=== PATIENT | male | born 1980 | race Caucasian/White ===

== ENCOUNTER 2017-09-19 06:46 | Inpatient (IN) | payer MEDICAID, SELFPAY ==
[2017-09-19] VITALS (9 sets, daily range): BP systolic 106–145; BP diastolic 75–94; PULSE 53–105; RESP 16–20; TEMP 36.6–36.9; O2SAT 94–100; BMI 18.8; BMI 17.6; BMI 17.7
--- NOTE | 2017-09-19 07:10 | EKG12_ITS ---
Test Reason : CP Blood Pressure : / mmHG Vent. Rate : 091 BPM Atrial Rate : 091 BPM P-R Int : 118 ms QRS Dur : 092 ms QT Int : 366 ms P-R-T Axes : 075 077 072 degrees QTc Int : 450 ms Normal sinus rhythm Normal ECG Confirmed by ELMA MYERS ([id number]), staff editor DERICK CHOWDHURY ([id number]) on 09/21/2017 2:34:56 PM Referred By: CECILIA Confirmed By:ELMA MYERS
--- NOTE | 2017-09-19 07:10 | RAD_ITS ---
STUDY: X-RAY CHEST REASON FOR EXAM: Male, 37 years old. Chest pain on and off for a while TECHNIQUE: Single AP portable view of the chest. COMPARISON: None. FINDINGS: There are superimposed monitor leads. There is no demonstrated pneumothorax. There is hyperinflation of the lungs. There is no focal parenchymal abnormality. There is no demonstrated pleural abnormality. Normal size heart. Normal mediastinum and todd. Normal visualized pulmonary arteries. Normal visualized aortic arch and descending thoracic aorta. Normal visualized thoracic spine. Normal visualized ribs, clavicles, and shoulders. There is no demonstrated abnormality of the visualized soft tissue structures of the upper abdomen. RAD/Chest 1 View (Portable) IMPRESSION: Hyperinflation, component of COPD noted excluded. No pulmonary edema, congestive heart failure or confluent pneumonia. Electronically Signed: Maryan Rose MD at 7:42 EDT , Service support ,
--- NOTE | 2017-09-19 07:13 | ED.VISSUMM ---
- ER Visit Summary Date of Service: 09/19/17 Chief Complaint: Chest pain History of Present Illness: The patient is a 37 M with no primary care physician. He reports that he has chest pain again at 620 this morning while he was at rest. Describes as a sharp substernal pain without radiation. Is 10 out of 10 at worst and 5 out of 10 currently. It makes him feel shaky, short of breath, and diaphoretic. It is worsened by stress. It is unchanged by exertion. It is relieved by nothing. He denies any associated nausea or vomiting. He does report that it makes him lightheaded. On review of systems patient reports she has had a cough productive yellow sputum for approximate the past 2 months. He does occasionally cough up blood streaked sputum. He has abdominal pain that began this morning and has had one episode of diarrhea today. No blood in his stools. He states the abdominal pain is an aching that is 2 out of 10 in severity. He also complains of dysuria that began today. Physical Examination: Vitals: Stable. Afebrile. General: Well-nourished and well-developed. Head: Normocephalic atraumatic. Neck: Supple, no lymphadenopathy. No JVD. Nontender. Cardiovascular: Regular rate and rhythm. No murmurs. Respiratory: No respiratory distress. Clear to auscultation bilaterally. Moderate tenderness palpation over his sternum that does reproduce his pain. Abdominal: Soft, mild diffuse tenderness to palpation, nondistended, normal bowel sounds. No guarding, rebound, or peritoneal signs. Back: Nontender. Extremities: Nontender, no edema. Skin: Normal color, no rash. Neurologic: Alert and oriented ?3. Cranial nerves II through XII are intact. Normal strength and sensation. Psych: Depressed affect. Test Results: EKG is sinus at 91 with no acute changes. CBC is remarkable for monocytes of 11. Chem-7 is marked for CO2 of 20 and calcium of 8.4. LFTs are marked for an ALT of 130, AST 183. Lipase is normal. Troponin is negative. Chest x-ray shows chronic changes. Urinalysis is negative. Alcohol level is 52. CT flank shows no acute disease and a normal appendix. Emergency Department Course and Treatment: Patient had an IV placed. He was given Toradol and Zofran IV. He was given a GI cocktail p.o. patient had increasing tremors and tachycardia. He was given Ativan IV and Librium p.o. The patient was discussed with [facility] they have been up to see him after he received Ativan at this time he does not meet criteria for admission to [facility]. However, he disclosed to them that he drinks a 30 pack of beer every 3-4 days. Clinically he is in alcohol withdrawal. Treatment Plan: The patient was discussed with Dr. Jeffery. He will be admitted to the hospital for stabilization. Disposition: Admitted in improved condition. Impression: 1. Atypical chest pain. 2. Abdominal pain, uncertain cause. 3. Alcohol withdrawal. This note was generated with [employer] dictation software. It may contain incorrect words, spelling, and punctuation that were not noted in review of the chart prior to signing ED Disposition - Plan for ED Patient: Chief Complaint: Chest Pain Instructions: ED Chest Pain Atypical Unkn Cause Prescriptions: Famotidine [Pepcid] 20 mg PO BID #28 tablet Referrals: Adrianna James [NON-STAFF] - 3-5 Days if not improving
[2017-09-19] MEDS: Ondansetron 4 MG/2 ML Vial IV ×2 (07:19→09:19)
[2017-09-19] MEDS: Ketorolac 30 MG/ML Syringe IV (07:19)
[2017-09-19] MEDS: 0.9% Normal Saline 1,000 ML 1000 ML IV (07:19)
[2017-09-19 07:27] LABS: Absolute Lymphocyte Count 1.64 X10^3/ul (0.83-4.51); Absolute Neutrophil Count 2.3 X10^3/uL (2.0-7.7); Basophil# 0.04 X10^3/uL; Basophil% 0.8 % (0-1); Eosinophil# 0.22 X10^3/uL; Eosinophils% 4.7 % (0-5); Hematocrit 43.7 % (40-54); Hemoglobin 14.4 g/dl (13.0-16.5); Lymphocyte # 1.64 X10^3/ul (4.0); Lymphocyte % 34.7 % (19-41); Mean Corpuscular Hgb 30.8 pg (27.0-32.0); Mean Corpuscular Volume 93.6 fL (80-94); Mean Platelet Vol. 9.2 fl (6.2-12.0); Monocyte# 0.54 X10^3/uL; Monocyte% 11.4 % (0-10); Neutrophil # 2.28 X10^3/uL (2.7-7.7); Neutrophil % 48.4 % (47-70); POSITIVE COUNT NO; POSITIVE DIFFERENTIAL NO; POSITIVE MORPHOLOGY NO; Platelet Count 199 K/mm3 (150-450); RBC Distribution Width CV 12.9 % (11.6-14.6); RBC Distribution Width SD 43.7 fl (35.1-43.9); Red Blood Count 4.67 M/mm3 (4.6-6.2); White Blood Count 4.7 K/mm3 (4.4-11.0)
[2017-09-19 07:33] LABS: AST(SGOT) 183 U/L (15-37); Alanine Aminotransfer ALT/SGPT 130 U/L (16-61); Albumin, Serum 3.5 g/dL (3.2-5.0); Alkaline Phosphatase 106 U/L (45-117); Anion Gap 14 (5-15); BUN 9 mg/dL (7-18); BUN/Creat Ratio 12.6 RATIO (10-20); Bilirubin, Direct 0.25 mg/dL (0.00-0.30); Calcium,Total 8.4 mg/dL (8.5-10.1); Chloride 106 mmol/L (98-107); Creatinine, Serum 0.72 mg/dL (0.70-1.30); EST Glomerular Filtration Rate 132 mL/min (>60); Est Glom Filt Rate - Afr Amer 159 mL/min (>60); Estimated Creatinine Clearance 123.18 ml/min; Globulin 4.3 g/dL (2.2-4.2); Glucose 78 mg/dL (74-106); Lipase 274 U/L (73-393); Potassium 3.7 mmol/L (3.5-5.1); Protein, Total 7.8 g/dL (6.4-8.2); Sodium Level 140 mmol/L (136-145)
[2017-09-19 08:24] LABS: Color, Urine Yellow (Yellow); Glucose, Dipstick Normal (Normal); Ketone-Dipstick 5 mg/dl (Negative); Leukocyte Esterase-Dipstick 25 /ul (Negative); Nitrite-Dipstick Negative (Negative); Occult Blood-Urine Negative /ul (Negative); Protein-Dipstick Negative (Negative); Specific Gravity, Urine 1.015 (1.002-1.030); Urine Bilirubin Dipstick Negative (Negative); Urine Clarity Sl. Cloudy (Clear); Urine Urobilinogen 1 mg/dl (Normal)
[2017-09-19 08:47] LABS: Red Blood Cells-Urine 0-5 SEEN /hpf (0-5); Squamous Epithelial Cells - UA 0-5 SEEN /hpf (0-5); White Blood Cells 0-5 SEEN /hpf (0-5)
[2017-09-19 08:48] LABS: Bacteria RARE /hpf (None Seen); Mucous, Urine RARE /hpf (<or=2+)
--- NOTE | 2017-09-19 09:07 | CT_ITS ---
STUDY: CT ABDOMEN AND PELVIS WITHOUT CONTRAST REASON FOR EXAM: Male, 37 years old. Abdominal pain, nausea and vomiting RADIATION DOSAGE (If Supplied By Facility): CTDIvol = ( 6.04 ) mGy, DLP = ( 271.80 ) mGycm TECHNIQUE: Transaxial images were obtained from the dome of the diaphragm to the symphysis pubis without oral contrast, and without intravenous contrast. Sagittal and coronal images were reconstructed. Individualized dose optimization techniques were used for this CT. COMPARISON: None. FINDINGS: The visualized lung bases are unremarkable. The visualized portions of the heart are within normal limits. Evaluation of the abdominal viscera is limited in the absence of intravenous contrast. Normal liver. Normal gallbladder and extrahepatic biliary system. Normal spleen. Normal pancreas. Normal bilateral adrenal glands. Normal right kidney. Normal left kidney. Normal visualized stomach. Normal small intestine. There is a moderate amount of stool throughout the colon. The appendix is visualized and appears normal. Normal abdominal aorta. Normal inferior vena cava. Normal retroperitoneum. Normal urinary bladder. Normal abdominal wall. Normal osseous structures. CT/Abdomen/Pelvis without Cont IMPRESSION: Moderate stool. No bowel obstruction or acute renal pathology. The appendix is normal. Electronically Signed: Zachary Nelson DO at 10:09 EDT Tel , Service support ,
[2017-09-19] MEDS: LORazepam 2 MG/ML Syringe 1 MG IV ×2 (09:19→10:34)
[2017-09-19] MEDS: Morphine 4 MG/ML Syringe IV (09:19)
--- NOTE | 2017-09-19 11:02 | ED.RN ---
[facility] talking with pt. pt admits to drinking a 30 pack or more every 3 days. drank last night stopping at 0530
[2017-09-19] MEDS: chlordiazePOXIDE 25 MG Capsule 50 MG PO (11:03)
--- NOTE | 2017-09-19 12:35 | NURSING ---
PT STATES HE DOES NOT TAKE ANY MEDICATIONS @ HOME
--- NOTE | 2017-09-19 12:59 | PCM.HP.STD ---
Problem List (1) Alcohol withdrawal Status: Acute (2) Alcohol abuse Status: Chronic History of Present Illness Date of Admission: 09/19/17 Chief Complaint: Multiple complaints. The patient is a 37 year old M with past medical history as mentioned above presented to the medicine because of chest pain as reported by ER physician and when I saw the patient, he mentioned that he came in because of suprapubic pain. At this time, the patient is sleepy and lethargic but arousable and I am not sure if he is able to provide good history. He has different complaints. He mentioned that this pain is in the suprapubic region, started this morning, 7 out of 10 in severity, not radiating, sharp pain, associated with difficulty urinating and without aggravating or relieving factors. Reportedly, patient complained of chest pain to the ER physician which also started this morning. He had one episode of diarrhea this morning. According to his mother, his girlfriend mentioned that he has been shaking uncontrollably since last night, very anxious and irritable and she brought him to the emergency room today. In the emergency room, he was slightly tachycardic, other vital signs were stable. His routine blood work was unremarkable. Liver transaminases were slightly elevated. Lipase was normal. Troponin was negative. EKG revealed normal sinus rhythm without evidence of acute ischemic changes. His blood alcohol level was 52. Urinalysis revealed cloudy urine, negative for nitrite, negative for leukocyte esterase, there was only 0-5? disease and rare bacteria. CT scan abdomen and pelvis without contrast showed no evidence of acute intra-abdominal pathology. He is being admitted for acute alcohol withdrawal and elevated liver transaminases likely because of mild alcoholic hepatitis as well as abdominal pain unclear etiology.. Past Medical History Past Medical History (Chronic Problems): Chronic Problems Alcohol abuse (Chronic) Allergies No Known Allergies Allergy (Verified 09/19/17 06:50) Surgical History: - - Surgery for nasal bone fracture. Psychiatric History: No pertinent psych hx Lives: Spouse/ Significant Other Smoking Status: Never smoker Alcohol: Heavy Drugs: None - *Family History Maternal History Items: No pertinent history Paternal History Items: No pertinent history Review of Systems Constitutional: Denies: Anorexia, Chills, Fever, Weakness Eyes: Denies: Blurred vision, Double vision, Drainage, Redness HEENT: Denies: Difficulty Hearing, Ear Pain, Eye Pain, Nasal Congestion, Sore Throat Cardiovascular: Reports: Chest Pain. Denies: Edema, Heaviness, Light Headedness, Orthopnea, Palpitations, Paroxysmal Noc. Dyspnea, Syncope Respiratory: Denies: Cough, Hemoptysis, Pleuritic Pain, Shortness of Breath, Sputum production, Wheezing Gastrointestinal: Reports: Abdominal Pain, Diarrhea, Nausea, Vomiting. Denies: Constipation Genitourinary: Reports: Dysuria. Denies: Frequency, Hematuria Musculoskeletal: Denies: Arm Pain, Back Pain, Foot Pain Skin: Denies: Dryness, Rash Neurological: Denies: Balance problems, Double vision, Slurred speech, Confusion, Headaches, Incoordination, Numbness Psychiatric: Denies: Anxiety, Depression Endocrine: Denies: Change in Body Habitus, Polydipsia VTE Information - Inpt Only VTE Present on Admission: No VTE Mechan Device Prophylaxis: None VTE Pharm Prophylaxis ordered?: No Patient Problems: Active and Suspected Problems Alcohol withdrawal (Acute) - Physical Exam General: Cooperative, - - Sleepy, lethargic but arousable. HEENT: Atraumatic, PERRLA, EOMI Oral: Moist Mucosa, No Gingival or Mucosal Lesions/ Ulcerations Neck: Supple, No JVD, Negative Carotid Bruits, Trachea Midline, Thyroid Normal Size and Texture Lungs: Clear to auscultation, Normal air movement, No rhonchi, No wheeze, No rales Cardiovascular: Regular rate, Regular Rhythm, Normal S1, Normal S2, PMI Normal Abdomen: Bowel Sounds Present, Soft, Non-Distended, No Hepato-splenomegaly, Obese, Tender Extremities: No clubbing, No cyanosis, No edema Skin: No rashes, No breakdown Lymphatic: No Cervical, Supraclavicular, or Inguinal Adenopathy Neurological: Cranial nerves II-XII grossly intact, Motor Exam 5/5 strength throughout Psych/Mental Status: Flat Affect, Alert and oriented to time, place, person, mood and affect Vital Signs Temp Pulse Resp BP Pulse Ox 98.5 F 60 18 114/76 99 09/19/17 12:22 09/19/17 12:22 09/19/17 12:22 09/19/17 12:22 09/19/17 12:22 Oxygen Delivery Method Room Air Weight: 130 lb 5 oz Body Mass Index (BMI) 17.6 Laboratory Tests 09/19/17 09/19/1709/19/18 Range/Units 08:15 06:58 06:58 WBC (4.4-11.0) K/mm3 RBC (4.6-6.2) M/mm3 Hgb (13.0-16.5) g/dl Hct (40-54) % MCV (80-94) fL MCH (27.0-32.0) pg MCHC (32-36) g/gl RDW (11.6-14.6) % RDW Differential (35.1-43.9) fl Plt Count (150-450) K/mm3 MPV (6.2-12.0) fl Immature Gran % (Auto) (0.0-0.9) % Neut % (Auto) (47-70) % Lymph % (Auto) (19-41) % [place] % (Auto) (0-10) % Eos % (Auto) (0-5) % Baso % (Auto) (0-1) % Absolute Neuts (auto) (2.0-7.7) X10^3/uL Absolute Lymphs (auto) (0.83-4.51) X10^3/ul Total Counted Sodium 140 (136-145) mmol/L Potassium 3.7 (3.5-5.1) mmol/L Chloride 106 (98-107) mmol/L Carbon Dioxide 20.0 L (21.0-32.0) mmol/L Anion Gap 14 (5-15) BUN 9 (7-18) mg/dL Creatinine 0.72 (0.70-1.30) mg/dL Estim Creat Clear Calc 123.18 ml/min Est GFR (MDRD) Af Amer 159 (>60) mL/min Est GFR (MDRD) Non-Af 132 (>60) mL/min BUN/Creatinine Ratio 12.6 (10-20) RATIO Glucose 78 (74-106) mg/dL Calcium 8.4 L (8.5-10.1) mg/dL Total Bilirubin 0.70 (0.20-1.00) mg/dL Direct Bilirubin 0.25 (0.00-0.30) mg/dL AST 183 H (15-37) U/L ALT 130 H (16-61) U/L Alkaline Phosphatase 106 (45-117) U/L Troponin I < 0.02 (<0.06) ng/mL Total Protein 7.8 (6.4-8.2) g/dL Albumin 3.5 (3.2-5.0) g/dL Globulin 4.3 H (2.2-4.2) g/dL Lipase 274 (73-393) U/L Urine Color Yellow (Yellow) Urine Clarity Sl. Cloudy (Clear) Urine pH 7.0 (5.0 - 8.0) Ur Specific [place] 1.015 (1.002-1.030) Urine Protein Negative (Negative) mg/dl Urine Glucose (UA) Normal (Normal) mg/dl Urine Ketones 5 H (Negative) mg/dl Urine Occult Blood Negative (Negative) /ul Urine Nitrite Negative (Negative) Urine Bilirubin Negative (Negative) mg/dL Urine Urobilinogen 1 H (Normal) mg/dl Ur Leukocyte Esterase 25 H (Negative) /ul Urine RBC 0-5 SEEN (0-5) /hpf Urine WBC 0-5 SEEN (0-5) /hpf Ur Squamous Epith Cells 0-5 SEEN (0-5) /hpf Urine Bacteria RARE (None Seen) /hpf Urine Mucus RARE (<or=2+) /hpf Ethyl Alcohol 52.0 mg/dL 09/19/ Range/Units 06:58 WBC 4.7 (4.4-11.0) K/mm3 RBC 4.67 (4.6-6.2) M/mm3 Hgb 14.4 (13.0-16.5) g/dl Hct 43.7 (40-54) % MCV 93.6 (80-94) fL MCH 30.8 (27.0-32.0) pg MCHC 33.0 (32-36) g/gl RDW 12.9 (11.6-14.6) % RDW Differential 43.7 (35.1-43.9) fl Plt Count 199 (150-450) K/mm3 MPV 9.2 (6.2-12.0) fl Immature Gran % (Auto) 0.000 (0.0-0.9) % Neut % (Auto) 48.4 (47-70) % Lymph % (Auto) 34.7 (19-41) % [place] % (Auto) 11.4 H (0-10) % Eos % (Auto) 4.7 (0-5) % Baso % (Auto) 0.8 (0-1) % Absolute Neuts (auto) 2.3 (2.0-7.7) X10^3/uL Absolute Lymphs (auto) 1.64 (0.83-4.51) X10^3/ul Total Counted Not Reportable Sodium (136-145) mmol/L Potassium (3.5-5.1) mmol/L Chloride (98-107) mmol/L Carbon Dioxide (21.0-32.0) mmol/L Anion Gap (5-15) BUN (7-18) mg/dL Creatinine (0.70-1.30) mg/dL Estim Creat Clear Calc ml/min Est GFR (MDRD) Af Amer (>60) mL/min Est GFR (MDRD) Non-Af (>60) mL/min BUN/Creatinine Ratio (10-20) RATIO Glucose (74-106) mg/dL Calcium (8.5-10.1) mg/dL Total Bilirubin (0.20-1.00) mg/dL Direct Bilirubin (0.00-0.30) mg/dL AST (15-37) U/L ALT (16-61) U/L Alkaline Phosphatase (45-117) U/L Troponin I (<0.06) ng/mL Total Protein (6.4-8.2) g/dL Albumin (3.2-5.0) g/dL Globulin (2.2-4.2) g/dL Lipase (73-393) U/L Urine Color (Yellow) Urine Clarity (Clear) Urine pH (5.0 - 8.0) Ur Specific [place] (1.002-1.030) Urine Protein (Negative) mg/dl Urine Glucose (UA) (Normal) mg/dl Urine Ketones (Negative) mg/dl Urine Occult Blood (Negative) /ul Urine Nitrite (Negative) Urine Bilirubin (Negative) mg/dL Urine Urobilinogen (Normal) mg/dl Ur Leukocyte Esterase (Negative) /ul Urine RBC (0-5) /hpf Urine WBC (0-5) /hpf Ur Squamous Epith Cells (0-5) /hpf Urine Bacteria (None Seen) /hpf Urine Mucus (<or=2+) /hpf Ethyl Alcohol mg/dL Clinical Impression(s) from Imaging Studies Chest X-Ray 09/19/17 07:10 IMPRESSION: Hyperinflation, component of COPD noted excluded. No pulmonary edema, congestive heart failure or confluent pneumonia. Electronically Signed: Maryan Rose MD at 7:42 EDT , Service support , Abdomen/Pelvis CT 09/19/17 09:07 IMPRESSION: Moderate stool. No bowel obstruction or acute renal pathology. The appendix is normal. Electronically Signed: Zachary Nelson DO at 10:09 EDT Tel , Service support , Assessment/Plan Active and Suspected Problems Alcohol withdrawal (Acute) This is a 57 years old male patient presented to the emergency room because of multiple complaints including abdominal pain, chest pain, nausea and vomiting in addition to reported symptoms of uncontrollable shakiness, and anxiety and restlessness in context of heavy drinking alcohol and he is being admitted for acute alcohol withdrawal as well as elevated LFTs. #1 acute alcohol withdrawal: Patient drinks alcohol heavily, every day. At this time, he is lethargic and sleepy because he received Ativan and IV morphine in the ER. His vital signs are stable. Heart rate stabilized, initially was tachycardic. His EKG revealed normal sinus rhythm without evidence of acute ischemic changes. [facility], [facility] protocol for alcohol withdrawal, Ativan as needed, folic acid, thiamine supplement, multivitamins, IV fluids with D5 normal saline, urine drug screen. #2 abdominal pain: It is nonspecific. Patient provided multiple complaints to different doctors including myself and the ER physician. CT scan abdomen and pelvis without contrast without evidence of acute findings. Liver transaminases are slightly elevated as below. Lipase is normal. He is tender on abdominal examination, no guarding or rigidity. Appendix is normal on CT scan. Plan for IV morphine as needed, IV fluids, IV antiemetics and IV Pepcid twice daily. #3 atypical chest pain: Again, patient has multiple complaints and I am not sure how much he is reliable. His EKG revealed normal sinus rhythm without evidence of acute ischemic changes. Troponin is negative ?1. He is at low risk for CAD, no significant risk factors. At this time, no indication for further cardiac workup. #4 elevated LFT: This is likely because of alcoholic hepatitis. Total bilirubin, direct bilirubin and alkaline phosphatase are normal. Plan to repeat LFTs tomorrow morning. #5 alcohol abuse: Patient has been drinking heavily for many years. Plan as above. #6 DVT prophylaxis: Low risk patient, no prophylaxis indicated. This note was generated with [employer] dictation software. It may contain incorrect words, spelling, and punctuation that were not noted in checking the note before signing. Code Visit Inpatient E&M: 58331 Init Hosp L3
[2017-09-19] MEDS: Dextrose 5%/0.9% NaCl 1,000 ML 75 ML IV (13:04)
--- NOTE | 2017-09-19 13:06 | HP.PCM_ITS ---
Problem List (1) Alcohol withdrawal Status: Acute (2) Alcohol abuse Status: Chronic History of Present Illness Date of Admission: 09/19/17 Chief Complaint: Multiple complaints. The patient is a 37 year old M with past medical history as mentioned above presented to the medicine because of chest pain as reported by ER physician and when I saw the patient, he mentioned that he came in because of suprapubic pain. At this time, the patient is sleepy and lethargic but arousable and I am not sure if he is able to provide good history. He has different complaints. He mentioned that this pain is in the suprapubic region, started this morning, 7 out of 10 in severity, not radiating, sharp pain, associated with difficulty urinating and without aggravating or relieving factors. Reportedly, patient complained of chest pain to the ER physician which also started this morning. He had one episode of diarrhea this morning. According to his mother, his girlfriend mentioned that he has been shaking uncontrollably since last night, very anxious and irritable and she brought him to the emergency room today. In the emergency room, he was slightly tachycardic, other vital signs were stable. His routine blood work was unremarkable. Liver transaminases were slightly elevated. Lipase was normal. Troponin was negative. EKG revealed normal sinus rhythm without evidence of acute ischemic changes. His blood alcohol level was 52. Urinalysis revealed cloudy urine, negative for nitrite, negative for leukocyte esterase, there was only 0-5? disease and rare bacteria. CT scan abdomen and pelvis without contrast showed no evidence of acute intra-abdominal pathology. He is being admitted for acute alcohol withdrawal and elevated liver transaminases likely because of mild alcoholic hepatitis as well as abdominal pain unclear etiology.. Past Medical History Past Medical History (Chronic Problems): Chronic Problems Alcohol abuse (Chronic) Allergies No Known Allergies Allergy (Verified 09/19/17 06:50) Surgical History: - - Surgery for nasal bone fracture. Psychiatric History: No pertinent psych hx Lives: Spouse/ Significant Other Smoking Status: Never smoker Alcohol: Heavy Drugs: None - *Family History Maternal History Items: No pertinent history Paternal History Items: No pertinent history Review of Systems Constitutional: Denies: Anorexia, Chills, Fever, Weakness Eyes: Denies: Blurred vision, Double vision, Drainage, Redness HEENT: Denies: Difficulty Hearing, Ear Pain, Eye Pain, Nasal Congestion, Sore Throat Cardiovascular: Reports: Chest Pain. Denies: Edema, Heaviness, Light Headedness , Orthopnea, Palpitations, Paroxysmal Noc. Dyspnea, Syncope Respiratory: Denies: Cough, Hemoptysis, Pleuritic Pain, Shortness of Breath, Sputum production, Wheezing Gastrointestinal: Reports: Abdominal Pain, Diarrhea, Nausea, Vomiting. Denies: Constipation Genitourinary: Reports: Dysuria. Denies: Frequency, Hematuria Musculoskeletal: Denies: Arm Pain, Back Pain, Foot Pain Skin: Denies: Dryness, Rash Neurological: Denies: Balance problems, Double vision, Slurred speech, Confusion , Headaches, Incoordination, Numbness Psychiatric: Denies: Anxiety, Depression Endocrine: Denies: Change in Body Habitus, Polydipsia VTE Information - Inpt Only VTE Present on Admission: No VTE Mechan Device Prophylaxis: None VTE Pharm Prophylaxis ordered?: No Patient Problems: Active and Suspected Problems Alcohol withdrawal (Acute) - Physical Exam General: Cooperative, - - Sleepy, lethargic but arousable. HEENT: Atraumatic, PERRLA, EOMI Oral: Moist Mucosa, No Gingival or Mucosal Lesions/ Ulcerations Neck: Supple, No JVD, Negative Carotid Bruits, Trachea Midline, Thyroid Normal Size and Texture Lungs: Clear to auscultation, Normal air movement, No rhonchi, No wheeze, No rales Cardiovascular: Regular rate, Regular Rhythm, Normal S1, Normal S2, PMI Normal Abdomen: Bowel Sounds Present, Soft, Non-Distended, No Hepato-splenomegaly, Obese, Tender Extremities: No clubbing, No cyanosis, No edema Skin: No rashes, No breakdown Lymphatic: No Cervical, Supraclavicular, or Inguinal Adenopathy Neurological: Cranial nerves II-XII grossly intact, Motor Exam 5/5 strength throughout Psych/Mental Status: Flat Affect, Alert and oriented to time, place, person, mood and affect Vital Signs Temp Pulse Resp BP Pulse Ox 98.5 F 60 18 114/76 99 09/19/17 12:22 09/19/17 12:22 09/19/17 12:22 09/19/17 12:22 09/19/17 12:22 Oxygen Delivery Method Room Air Weight: 130 lb 5 oz Body Mass Index (BMI) 17.6 Laboratory Tests 3 04/09/19/17 09/19/17 Range/Units 08:15 06:58 06:58 WBC (4.4-11.0) K/mm3 RBC (4.6-6.2) M/mm3 Hgb (13.0-16.5) g/dl Hct (40-54) % MCV (80-94) fL MCH (27.0-32.0) pg MCHC (32-36) g/gl RDW (11.6-14.6) % RDW Differential (35.1-43.9) fl Plt Count (150-450) K/mm3 MPV (6.2-12.0) fl Immature Gran % (Auto) (0.0-0.9) % Neut % (Auto) (47-70) % Lymph % (Auto) (19-41) % [place] % (Auto) (0-10) % Eos % (Auto) (0-5) % Baso % (Auto) (0-1) % Absolute Neuts (auto) (2.0-7.7) X10^3/uL Absolute Lymphs (auto) (0.83-4.51) X10^3/ul Total Counted Sodium 140 (136-145) mmol/L Potassium 3.7 (3.5-5.1) mmol/L Chloride 106 (98-107) mmol/L Carbon Dioxide 20.0 L (21.0-32.0) mmol/L Anion Gap 14 (5-15) BUN 9 (7-18) mg/dL Creatinine 0.72 (0.70-1.30) mg/dL Estim Creat Clear Calc 123.18 ml/min Est GFR (MDRD) Af Amer 159 (>60) mL/min Est GFR (MDRD) Non-Af 132 (>60) mL/min BUN/Creatinine Ratio 12.6 (10-20) RATIO Glucose 78 (74-106) mg/dL Calcium 8.4 L (8.5-10.1) mg/dL Total Bilirubin 0.70 (0.20-1.00) mg/dL Direct Bilirubin 0.25 (0.00-0.30) mg/dL AST 183 H (15-37) U/L ALT 130 H (16-61) U/L Alkaline Phosphatase 106 (45-117) U/L Troponin I < 0.02 (<0.06) ng/mL Total Protein 7.8 (6.4-8.2) g/dL Albumin 3.5 (3.2-5.0) g/dL Globulin 4.3 H (2.2-4.2) g/dL Lipase 274 (73-393) U/L Urine Color Yellow (Yellow) Urine Clarity Sl. Cloudy (Clear) Urine pH 7.0 (5.0 - 8.0) Ur Specific [place] 1.015 (1.002-1.030) Urine Protein Negative (Negative) mg/dl Urine Glucose (UA) Normal (Normal) mg/dl Urine Ketones 5 H (Negative) mg/dl Urine Occult Blood Negative (Negative) /ul Urine Nitrite Negative (Negative) Urine Bilirubin Negative (Negative) mg/dL Urine Urobilinogen 1 H (Normal) mg/dl Ur Leukocyte Esterase 25 H (Negative) /ul Urine RBC 0-5 SEEN (0-5) /hpf Urine WBC 0-5 SEEN (0-5) /hpf Ur Squamous Epith Cells 0-5 SEEN (0-5) /hpf Urine Bacteria RARE (None Seen) /hpf Urine Mucus RARE (<or=2+) /hpf Ethyl Alcohol 52.0 mg/dL 3 09/19/18 Range/Units 06:58 WBC 4.7 (4.4-11.0) K/mm3 RBC 4.67 (4.6-6.2) M/mm3 Hgb 14.4 (13.0-16.5) g/dl Hct 43.7 (40-54) % MCV 93.6 (80-94) fL MCH 30.8 (27.0-32.0) pg MCHC 33.0 (32-36) g/gl RDW 12.9 (11.6-14.6) % RDW Differential 43.7 (35.1-43.9) fl Plt Count 199 (150-450) K/mm3 MPV 9.2 (6.2-12.0) fl Immature Gran % (Auto) 0.000 (0.0-0.9) % Neut % (Auto) 48.4 (47-70) % Lymph % (Auto) 34.7 (19-41) % [place] % (Auto) 11.4 H (0-10) % Eos % (Auto) 4.7 (0-5) % Baso % (Auto) 0.8 (0-1) % Absolute Neuts (auto) 2.3 (2.0-7.7) X10^3/uL Absolute Lymphs (auto) 1.64 (0.83-4.51) X10^3/ul Total Counted Not Reportable Sodium (136-145) mmol/L Potassium (3.5-5.1) mmol/L Chloride (98-107) mmol/L Carbon Dioxide (21.0-32.0) mmol/L Anion Gap (5-15) BUN (7-18) mg/dL Creatinine (0.70-1.30) mg/dL Estim Creat Clear Calc ml/min Est GFR (MDRD) Af Amer (>60) mL/min Est GFR (MDRD) Non-Af (>60) mL/min BUN/Creatinine Ratio (10-20) RATIO Glucose (74-106) mg/dL Calcium (8.5-10.1) mg/dL Total Bilirubin (0.20-1.00) mg/dL Direct Bilirubin (0.00-0.30) mg/dL AST (15-37) U/L ALT (16-61) U/L Alkaline Phosphatase (45-117) U/L Troponin I (<0.06) ng/mL Total Protein (6.4-8.2) g/dL Albumin (3.2-5.0) g/dL Globulin (2.2-4.2) g/dL Lipase (73-393) U/L Urine Color (Yellow) Urine Clarity (Clear) Urine pH (5.0 - 8.0) Ur Specific [place] (1.002-1.030) Urine Protein (Negative) mg/dl Urine Glucose (UA) (Normal) mg/dl Urine Ketones (Negative) mg/dl Urine Occult Blood (Negative) /ul Urine Nitrite (Negative) Urine Bilirubin (Negative) mg/dL Urine Urobilinogen (Normal) mg/dl Ur Leukocyte Esterase (Negative) /ul Urine RBC (0-5) /hpf Urine WBC (0-5) /hpf Ur Squamous Epith Cells (0-5) /hpf Urine Bacteria (None Seen) /hpf Urine Mucus (<or=2+) /hpf Ethyl Alcohol mg/dL Clinical Impression(s) from Imaging Studies Chest X-Ray 09/19/17 07:10 IMPRESSION: Hyperinflation, component of COPD noted excluded. No pulmonary edema, congestive heart failure or confluent pneumonia. Electronically Signed: Maryan Rose MD at 7:42 EDT , Service support , Abdomen/Pelvis CT 09/19/17 09:07 IMPRESSION: Moderate stool. No bowel obstruction or acute renal pathology. The appendix is normal. Electronically Signed: Zachary Nelson DO at 10:09 EDT Tel , Service support , Assessment/Plan Active and Suspected Problems Alcohol withdrawal (Acute) This is a 57 years old male patient presented to the emergency room because of multiple complaints including abdominal pain, chest pain, nausea and vomiting in addition to reported symptoms of uncontrollable shakiness, and anxiety and restlessness in context of heavy drinking alcohol and he is being admitted for acute alcohol withdrawal as well as elevated LFTs. #1 acute alcohol withdrawal: Patient drinks alcohol heavily, every day. At this time, he is lethargic and sleepy because he received Ativan and IV morphine in the ER. His vital signs are stable. Heart rate stabilized, initially was tachycardic. His EKG revealed normal sinus rhythm without evidence of acute ischemic changes. Plan: Admit to [facility] floor, cardiac monitoring, initiate [facility] protocol for alcohol withdrawal, Ativan as needed, folic acid, thiamine supplement, multivitamins, IV fluids with D5 normal saline , urine drug screen. #2 abdominal pain: It is nonspecific. Patient provided multiple complaints to different doctors including myself and the ER physician. CT scan abdomen and pelvis without contrast without evidence of acute findings. Liver transaminases are slightly elevated as below. Lipase is normal. He is tender on abdominal examination, no guarding or rigidity. Appendix is normal on CT scan. Plan for IV morphine as needed, IV fluids, IV antiemetics and IV Pepcid twice daily. #3 atypical chest pain: Again, patient has multiple complaints and I am not sure how much he is reliable. His EKG revealed normal sinus rhythm without evidence of acute ischemic changes. Troponin is negative ?1. He is at low risk for CAD, no significant risk factors. At this time, no indication for further cardiac workup. #4 elevated LFT: This is likely because of alcoholic hepatitis. Total bilirubin , direct bilirubin and alkaline phosphatase are normal. Plan to repeat LFTs tomorrow morning. #5 alcohol abuse: Patient has been drinking heavily for many years. Plan as above. #6 DVT prophylaxis: Low risk patient, no prophylaxis indicated. This note was generated with [employer] software. It may contain incorrect words, spelling, and punctuation that were not noted in checking the note before signing. Code Visit Inpatient E&M: 15385 Init Hosp L3
[2017-09-19 13:37] LABS: Amphetamine Urine VISTA NEGATIVE (<1000 ng/mL); Barbiturate Urine VISTA NEGATIVE (< 200 ng/mL); Benzodiazepine Urine VISTA NEGATIVE (< 200 ng/mL); Cocaine Urine VISTA NEGATIVE (< 300 ng/mL); Ecstacy Urine VISTA NEGATIVE (< 500 ng/mL); Methadone Urine VISTA NEGATIVE (< 300 ng/mL); PCP Urine VISTA NEGATIVE (< 25 ng/mL); THC Urine VISTA NEGATIVE (< 50 ng/mL); Vista UDS pH Range 5
[2017-09-19] MEDS: 0.9% NaCl Peripheral Flush Adult/Peds IV (14:46)
[2017-09-19] MEDS: Morphine 2 MG/ML Syringe 1 MG IV (14:46)
[2017-09-19] MEDS: Thiamine Hydrochloride 100 MG Tablet PO (16:30)
[2017-09-20] VITALS (10 sets, daily range): BP systolic 111–128; BP diastolic 68–82; PULSE 50–86; RESP 18; TEMP 36.4–37.1; O2SAT 98–99
[2017-09-20] MEDS: Dextrose 5%/0.9% NaCl 1,000 ML 75 ML IV ×2 (02:50→17:00)
[2017-09-20 06:51] LABS: AST(SGOT) 64 U/L (15-37); Alanine Aminotransfer ALT/SGPT 83 U/L (16-61); Albumin, Serum 2.8 g/dL (3.2-5.0); Alkaline Phosphatase 82 U/L (45-117); Bilirubin, Direct 0.23 mg/dL (0.00-0.30); Globulin 3.5 g/dL (2.2-4.2); Protein, Total 6.3 g/dL (6.4-8.2)
--- NOTE | 2017-09-20 08:01 | PCM.PROGNOTE ---
Patient Problems: Active and Suspected Problems Alcohol withdrawal (Acute) Subjective: Chief complaint: Follow-up after admission for acute alcohol withdrawal. Patient seen and examined. No acute events overnight. This morning, he is more alert and awake. He mentioned that his abdominal pain is improving compared to yesterday. Denied nausea vomiting. Chest pain also improved, almost gone. All over, he is feeling better. His vital signs are stable. - Physical Exam General: Alert, Oriented x3, Cooperative, No apparent distress HEENT: Atraumatic, PERRLA, EOMI Oral: Moist Mucosa, No Gingival or Mucosal Lesions/ Ulcerations Neck: Supple, No JVD, Negative Carotid Bruits, Trachea Midline, Thyroid Normal Size and Texture Lungs: Clear to auscultation, No rhonchi, No wheeze, No rales, Diminished Cardiovascular: Regular rate, Regular Rhythm, Normal S1, Normal S2, No murmurs, PMI Normal Abdomen: Bowel Sounds Present, Soft, Non-Distended, No Hepato-splenomegaly, Tender - Minimal tenderness. No guarding or rigidity. Extremities: No clubbing, No cyanosis, No edema Skin: No rashes, No breakdown Lymphatic: No Cervical, Supraclavicular, or Inguinal Adenopathy Neurological: Cranial nerves II-XII grossly intact, Motor Exam 5/5 strength throughout Psych/Mental Status: Normal Affect, Appropriate, Alert and oriented to time, place, person, mood and affect Vital Signs Temp Pulse Resp BP Pulse Ox 97.6 F L 50 L 18 113/70 99 09/20/17 05:45 09/20/17 05:45 09/20/17 05:45 09/20/17 05:45 09/20/17 05:45 Oxygen Delivery Method Room Air Weight: 130 lb 4.691 oz Body Mass Index (BMI) 17.6 Intake and Output for Last 24 Hours 09/18/17 09/19/17 09/20/17 23:59 23:59 23:59 Intake Total 815 / 815 1619 / 1619 Balance 815 / 815 1619 / 1619 Laboratory Tests Past 24 Hrs 09/19/17 09/20/17 12:50 06:04 Total Bilirubin 0.90 Direct Bilirubin 0.23 AST 64 H ALT 83 H Alkaline Phosphatase 82 Total Protein 6.3 L Albumin 2.8 L Globulin 3.5 Urine Opiates Screen POSITIVE H Urine Methadone Screen NEGATIVE Ur Barbiturates Screen NEGATIVE Ur Phencyclidine Scrn NEGATIVE Ur Amphetamines Screen NEGATIVE U Methamphetamin-MDMA NEGATIVE U Benzodiazepines Scrn NEGATIVE Urine Cocaine Screen NEGATIVE U Cannabinoids Screen NEGATIVE Ur Drug Screen Comment Medical Necessity - Tobacco Use Smoking Status: Never smoker Assessment/Plan Active and Suspected Problems Alcohol withdrawal (Acute) This is a 57 years old male patient presented to the emergency room because of multiple complaints including abdominal pain, chest pain, nausea and vomiting in addition to reported symptoms of uncontrollable shakiness, and anxiety and restlessness in context of heavy drinking alcohol and he is being admitted for acute alcohol withdrawal as well as elevated LFTs. #1 acute alcohol withdrawal: He is on CIWA protocol, IV Ativan and oral Ativan as needed according to the protocol as well as folic acid and thiamine supplement. His vital signs are stable. Today, patient is more resting, comfortable, is shaky and restless. Plan to continue same treatment. #2 abdominal pain: Unclear etiology. CT scan abdomen and pelvis without contrast showed no acute findings. Lipase is normal. Liver transaminases are trending down. Patient symptoms improved. He is on IV fluids, IV antiemetics and IV morphine. #3 atypical chest pain: Today, patient has no more chest pain. EKG reveals no acute ischemic changes. Troponin is negative ?1. This is likely musculoskeletal pain. #4 elevated LFT: This is likely because of alcoholic hepatitis. Total bilirubin, direct bilirubin and alkaline phosphatase are normal. Liver transaminases are trending down today. #5 alcohol abuse: Patient has been drinking heavily for many years. Urine drug screen was positive for opioids which is likely because of the IV morphine he received. #6 DVT prophylaxis: Low risk patient, no prophylaxis indicated. This note was generated with [employer] dictation software. It may contain incorrect words, spelling, and punctuation that were not noted in checking the note before signing. Code Visit Inpatient E&M: 97244 Subs Hosp L2
[2017-09-20] MEDS: Multivitamins,Ther W-Minerals Tablet 1 TABLET PO (08:17)
[2017-09-20] MEDS: Folic Acid 1 MG Tablet PO (08:17)
[2017-09-20] MEDS: Thiamine Hydrochloride 100 MG Tablet PO ×2 (08:17→18:34)
[2017-09-20] MEDS: Mag Hydrox/Al Hydrox/Simeth 30 ML UDC 15 ML PO (08:34)
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
--- NOTE | 2017-09-20 13:35 | CHAPLAIN ---
Type of Pastoral Visit _x__ Initial Visit ___ Follow-up Visit ___ On-call Visit ___ General Patient Visit ___ Spiritual Assessment ___ Family Conference ___ Bereavement ___ Rapid Response ___ Code Blue ___ Other (describe below) Pastoral Care Referral From _x__ Patient ___ Family ___ Nurse ___ Physician ___ Ceramic Tile Installation Helper ___ Bond Analyst ___ Other (describe below) Sacrament/Intervention _x__ Active listening ___ Anointing ___ Scientologist ___ Bereavement ___ Communion ___ Vero exploration ___ _x__ Life review _x__ Prayer ___ Reconciliation ___ Sacrament of Sick _x__ Supportive presence ___ Wedding ___ Other (describe below) Pastoral Comments patient acknowledges that stress is very high and he could not cope with it recently; pt admits to drinking alcohol to help his stress; talked about his options and how to make choices that are better for him; pt says he is not church but would accept prayer for support; gave patient time to talk and reveal his concerns;
[2017-09-21 00:04] VITALS: PULSE 59
[2017-09-21 03:00] VITALS: BP 118/76; PULSE 56; RESP 16; TEMP 36.8; O2SAT 97
[2017-09-21 04:00] VITALS: PULSE 52
[2017-09-21] MEDS: Dextrose 5%/0.9% NaCl 1,000 ML 75 ML IV (05:45)
[2017-09-21 08:30] VITALS: O2SAT 95
[2017-09-21] MEDS: Multivitamins,Ther W-Minerals Tablet 1 TABLET PO (08:33)
[2017-09-21] MEDS: Folic Acid 1 MG Tablet PO (08:34)
[2017-09-21] MEDS: Thiamine Hydrochloride 100 MG Tablet PO (08:35)
[2017-09-21 08:36] VITALS: BP 117/76; PULSE 60; RESP 18; TEMP 36.3
--- NOTE | 2017-09-21 08:50 | PCM.DC ---
- Discharge Diagnoses Current Active Problems: Current Active and Chronic Problems Alcohol withdrawal (Acute) Alcohol abuse (Chronic) You will use the following diet at home:: Regular Your food should be the consistency of: Regular Discharge Activity: Return to Normal Activity Weight Bearing Status: Full weight bearing Call your doctor if you observe: Fever of 101 or Higher, Shortness of breath, Dizziness, Fainting spells, Chest pain, Increased palpitations (irregular heartbeat), Uncontrolled pain Instructions: ED Withdrawal Alcohol, Recovering from Addiction: Continuing with Counseling, The Impact of Alcoholism, Alcoholism: How to be Part of the Solution, Alcoholism: Resources for Family and Friends, Alcoholism: Getting Help Allergies/Adverse Reactions: Allergies No Known Allergies Allergy (Verified 09/19/17 06:50) Medications to take at Discharge Folic Acid 1 mg PO DAILY@0800 #30 tab 09/21/17 Pantoprazole Sodium [Protonix] 40 mg PO DAILY #30 tab 09/21/17 Thiamine Hydrochloride [Vitamin B1] 100 mg PO DAILY #30 tab 09/21/17 The following prescriptions were given: Folic Acid 1 mg PO DAILY@0800 #30 tab Pantoprazole Sodium [Protonix] 40 mg PO DAILY #30 tab Thiamine Hydrochloride [Vitamin B1] 100 mg PO DAILY #30 tab Primary Care Physician: Adrianna James [NON-STAFF] - 3-5 Days if not improving Please follow up with your Primary Care Physician in: 2 weeks.
[2017-09-21 13:58] VITALS: BP 131/84; PULSE 81; RESP 18; TEMP 36.6; O2SAT 100
--- NOTE | 2017-09-21 13:59 | CASEMGMT ---
Pt had 3 scripts sent to the [facility], SW spoke w/pharmacist Deepak. The Vitamin B 1 is about $6, and the Folic Acid is $11.99. The Protonix is $109, pt could get Prilosec OTC for about $20 as per the pharmacist. SW spoke w/pt, he states he gets paid tomorrow and can get the medications tomorrow, would rather have them filled at [facility]. SW explained to ask the pharmacist what would be a good equivalent over the counter med for Protonix since the Protonix is $109. Pt asked SW to fax the scripts to [facility], SW explained will fax the Vitamin B1 and Folic Acid, and he can show the pharmacist the script for Protonix and they should be able to advise pt on an over the counter option. Pt states understanding. SW got the scripts back from the retail pharmacy, faxed the Vitamin B 1 and Folic Acid to [facility], called and let them know the scripts are coming over. JAMES also checked the cost of Protonix at [facility], it's $71. JAMES gave the scripts to the RN, she will give them to the pt. JAMES wrote on the scripts that they were faxed, and put a note on the Protonix script with the cost and to check w/the pharmacy about an over the counter equivalent. No further needs anticipated at this time. BRADFORD Coon, TREE TOPPER
--- NOTE | 2017-09-21 14:20 | DS.PCM_ITS ---
Discharge Date and Diagnosis Date of Admission: 09/19/17 Date of Discharge: 09/21/17 - Primary Discharge Diagnosis Active and Suspected Problems #1 acute alcohol withdrawal (Acute) #2 abdominal pain, unclear etiology. #3 mild alcoholic hepatitis. - Secondary Discharge Diagnosis Chronic Problems Alcohol abuse (Chronic) Hospital Course and Treatment Imaging Results: Clinical Impression(s) from Imaging Studies Chest X-Ray 09/19/17 07:10 IMPRESSION: Hyperinflation, component of COPD noted excluded. No pulmonary edema, congestive heart failure or confluent pneumonia. Electronically Signed: Maryan Rose MD at 7:42 EDT , Service support , Abdomen/Pelvis CT 09/19/17 09:07 IMPRESSION: Moderate stool. No bowel obstruction or acute renal pathology. The appendix is normal. Electronically Signed: Zachary Nelson DO at 10:09 EDT Tel , Service support , Operations: None Procedures: None Summary of Care Provided: Patient seen and examined on the day of discharge and appeared to be stable to be discharged home. He is feeling significantly better. His abdominal pain significantly improved. Denies any more nausea vomiting. His vital signs are stable. - Physical Exam General: Alert, Oriented x3, Cooperative, No apparent distress. HEENT: Atraumatic, PERRLA, EOMI. Neck: Supple, No JVD, Negative Carotid Bruits, Trachea Midline, Thyroid Normal. Lungs: Clear to auscultation, Normal air movement, No rhonchi, No wheeze, No rales. Cardiovascular: Regular rate, Regular Rhythm, Normal S1, Normal S2, PMI Normal. Abdomen: Bowel Sounds Present, Soft, voluntary guarding, no rigidity. Non- Distended, No Hepato-splenomegaly. Extremities: No clubbing, No cyanosis, No edema Skin: No rashes, No breakdown Neurological: Neuro grossly intact Vital Signs stable. Hospital course: The patient is a 37 year old M presented to the emergency room because of multiple complaints including abdominal pain, atypical chest pain, nausea, vomiting, restlessness and anxiety and he requested to be admitted for treatment for acute alcohol withdrawal. Patient has been drinking alcohol heavily for a long time. He was admitted and started on treatment for alcohol withdrawal with as needed Ativan, folic acid, thiamine, multivitamins, as needed methocarbamol, Bentyl and IV morphine as needed for pain. On admission, patient complained of abdominal pain and there was no specific etiology identified for it. CT scan abdomen and pelvis without contrast showed no acute findings. Pancreatic lipase was normal. Liver transaminases were slightly elevated and trended down which is attributed to mild alcoholic hepatitis. There was no evidence of gallstones or cholecystitis on CT scan abdomen. Patient had no right upper quadrant pain other than diffuse generalized abdominal pain. His urine drug screen was positive for opioids but patient received IV morphine in the ER as well as in the floor for abdominal pain. With above-mentioned treatment, patient symptoms improved. His abdominal pain also improved and almost resolved. His vital signs remained stable. His liver transaminases trended down. Patient discharged home in a stable medical condition, discharged on folic acid and thiamine supplement, discharged on Protonix, counseled regarding his drinking behavior, recommended to find a PCP and follow-up with him/her in 2 weeks. Discharge Activity: Return to Normal Activity Weight Bearing Status: Full weight bearing Call your doctor if you observe: Fever of 101 or Higher, Shortness of breath, Dizziness, Fainting spells, Chest pain, Increased palpitations (irregular heartbeat), Uncontrolled pain Home Medications: Medications to take at Discharge Folic Acid 1 mg PO DAILY@0800 #30 tab 09/21/17 Pantoprazole Sodium [Protonix] 40 mg PO DAILY #30 tab 09/21/17 Thiamine Hydrochloride [Vitamin B1] 100 mg PO DAILY #30 tab 09/21/17 Following Prescrptions Were Given to Patient: Folic Acid 1 mg PO DAILY@0800 #30 tab Pantoprazole Sodium [Protonix] 40 mg PO DAILY #30 tab Thiamine Hydrochloride [Vitamin B1] 100 mg PO DAILY #30 tab Primary Care Physician: Adrianna James [NON-STAFF] - 3-5 Days if not improving Please follow up with your Primary Care Physician in: 2 weeks. Patient Instructions: The Impact of Alcoholism, Alcoholism: How to be Part of the Solution, Alcoholism: Resources for Family and Friends, Alcoholism: Getting Help, Recovering from Addiction: Continuing with Counseling, ED Withdrawal Alcohol Disposition: Home Minutes spent on discharge:: 28 Patient Condition:: Stable Medical Necessity - Tobacco Use Smoking Status: Never smoker Meaningful Use Info Meaningful Use Diagnoses (Choose all that apply): None applicable Code Visit Inpatient E&M: 91371 Disch Hosp
== END 2017-09-21 15:11 | disposition home or self-care (01) | DRG 897 ==
LOC: ED 09:50 → MS2 11:41
PROVIDERS: Admitting Provider Hospitalist; Emergency Provider Emergency Medicine; Visit Provider Hospitalist
DX: F10.239 Alcohol dependence with withdrawal, unspecified (principal); R07.89 Other chest pain; Y90.2 Blood alcohol level of 40-59 mg/100 ml; K70.10 Alcoholic hepatitis without ascites; F41.9 Anxiety disorder, unspecified
CPT/HCPCS: 36415; 71045; 74176; 80048; 80076; 80307; 80320; 81001; 83690; 84484; 85025; 93005; 97802; 99285; J7030; A4216; G0480; J2405

== ENCOUNTER 2018-05-04 09:49 | Emergency (ER) | payer SELFPAY ==
[2018-05-04 09:50] VITALS: BP 144/78; PULSE 98; RESP 16; TEMP 36.1; O2SAT 99; BMI 20.9
--- NOTE | 2018-05-04 10:20 | ED.DCSUM_ITS ---
- ER Visit Summary Date of Service: 05/04/18 Chief Complaint: Nausea and vomiting History of Present Illness: The patient is a 38 M history of alcohol abuse. Patient states he did drink last night. At 630 this morning he started having nausea and vomiting. He denies any abdominal pain. He denies any fever. He denies any hematemesis nor melena. He has had episodes of vomiting like this before. Physical Examination: Young male no acute distress. Vital signs are stable afebrile. H EENT exam dry mucous membranes. Strong smell of alcohol on his breath. No signs of trauma to his face or scalp. Neck nontender. No lymphadenopathy. Laterally. Heart regular rhythm no murmur. Chest wall nontender. Abdomen soft. Nontender. Nondistended. Normal bowel sounds. No peritoneal signs. No hernias or masses. No signs of obstruction. Moving all 4 extremities. Neurovascular intact. Tremors of his hands bilaterally. Neurologically awake and alert. No focal motor deficits. Patient is awake and alert. Answering questions. Following commands. Test Results: CBC normal white count of 5. Hemoglobin 14. Chemistries normal normal gap 13 and creatinine 0.6. Liver enzymes ALT slightly elevated at 97 AST 131. Lipase normal. Emergency Department Course and Treatment: Patient treated with 1 L normal saline. IV Phenergan. Repeat exam the patient is doing well at 12:45 PM. He feels comfortable being d ischarged home. His abdomen is benign. He has been able to hold down oral fluids. Treatment Plan: Zofran for nausea. I strongly encouraged the patient to seek alcohol counseling because I think he has an alcohol problem. Disposition: Discharge Impression: Acute nausea and vomiting History of alcohol abuse This note was generated with [employer] dictation software. It may contain incorrect words, spelling, and punctuation that were not noted in review of the chart prior to signing ED Disposition - Plan for ED Patient: Chief Complaint: Nausea/Vomiting Referrals: Care Physician,No Primary [Primary Care Provider] -
[2018-05-04] MEDS: 0.9% Normal Saline 1,000 ML 1000 ML IV (10:27)
[2018-05-04] MEDS: proMETHazine 25 MG/ML Syringe 12.5 MG IV (10:27)
[2018-05-04 10:38] LABS: Absolute Lymphocyte Count 0.59 X10^3/ul (0.83-4.51); Absolute Neutrophil Count 4.2 X10^3/uL (2.0-7.7); Basophil# 0.03 X10^3/uL; Basophil% 0.6 % (0-1); Differential Indicated SCAN CRITERIA MET; Eosinophil# 0.07 X10^3/uL; Eosinophils% 1.3 % (0-5); Hematocrit 43.8 % (40-54); Hemoglobin 14.6 g/dl (13.0-16.5); Lymphocyte # 0.59 X10^3/ul (4.0); Lymphocyte % 11.1 % (19-41); Mean Corp Hgb Conc 33.3 g/gl (32-36); Mean Corpuscular Hgb 31.7 pg (27.0-32.0); Mean Corpuscular Volume 95.2 fL (80-94); Mean Platelet Vol. 9.1 fl (6.2-12.0); Monocyte# 0.37 X10^3/uL; Neutrophil # 4.24 X10^3/uL (2.7-7.7); POSITIVE COUNT NO; POSITIVE DIFFERENTIAL YES; POSITIVE MORPHOLOGY NO; Platelet Count 179 K/mm3 (150-450); RBC Distribution Width SD 44.9 fl (35.1-43.9); White Blood Count 5.3 K/mm3 (4.4-11.0)
[2018-05-04 10:46] LABS: AST(SGOT) 131 U/L (15-37); Alanine Aminotransfer ALT/SGPT 97 U/L (16-61); Albumin, Serum 3.8 g/dL (3.2-5.0); Alkaline Phosphatase 77 U/L (45-117); Anion Gap 13 (5-15); BUN 12 mg/dL (7-18); BUN/Creat Ratio 17.6 RATIO (10-20); Bilirubin, Direct 0.25 mg/dL (0.00-0.30); Calcium,Total 8.3 mg/dL (8.5-10.1); Chloride 105 mmol/L (98-107); Creatinine, Serum 0.68 mg/dL (0.70-1.30); EST Glomerular Filtration Rate 139 mL/min (>60); Est Glom Filt Rate - Afr Amer 168 mL/min (>60); Estimated Creatinine Clearance 147.91 ml/min; Globulin 4.1 g/dL (2.2-4.2); Glucose 76 mg/dL (74-106); Lipase 140 U/L (73-393); Potassium 3.8 mmol/L (3.5-5.1); Protein, Total 7.9 g/dL (6.4-8.2); Sodium Level 143 mmol/L (136-145)
--- NOTE | 2018-05-04 13:00 | ED.DEP ---
ED Disposition - Plan for ED Patient: Disposition: Home or Assisted Living Chief Complaint: Nausea/Vomiting Instructions: ED Nausea Vomiting Prescriptions: Ondansetron [Zofran Odt] 4 mg PO Q4H PRN PRN #10 tab.rapdis PRN Reason: Nausea Referrals: Jerardo Roe MD [NON-STAFF] - 3-5 Days Additional Instructions: Linear fluids and rest. Zofran as needed for nausea. Only consider following up with the outpatient steps local program for alcohol counseling. Follow-up with a local primary care physician.
[2018-05-04 13:15] VITALS: BP 125/75; PULSE 70; RESP 16; O2SAT 96
--- OUTSIDE RECORDS SUMMARY | 2018-06-29 05:49 | XMS RPT_ITS ---
:1980 Author Organization OHIP Care Team Providers Name Role Phone Primay Care Physicia, No Primary Care Unavailable Donnie Hernandez Attending Unavailable Ashelfah, Ghasem Admitting Unavailable Ashelfah, Ghasem Attending Unavailable Primay Care Physicia, No Primary Care Unavailable Ashelfah, Ghasem Consulting Unavailable Ashelfah, Ghasem Admitting Unavailable Ashelfah, Ghasem Attending Unavailable Primay Care Physicia, No Primary Care Unavailable Ashelfah, Ghasem Consulting Unavailable Ashelfah, Ghasem Admitting Unavailable Ashelfah, Ghasem Attending Unavailable Primay Care Physicia, No Primary Care Unavailable Ashelfah, Ghasem Consulting Unavailable Primay Care Physicia, No Primary Care Unavailable Ashelfah, Ghasem Admitting Unavailable Ashelfah, Ghasem Attending Unavailable PROBLEMS PROBLEMS DATE TYPE CONDITION / CODE ATTENDING STATUS SOURCE 02/21/2018 Unknown F10.239 - Alcohol Ashelfah, Active [place] dependence with Ghasem Community withdrawal, Hospital unspecified / Repository F10.239(ICD-10) PROCEDURES PROCEDURES No Procedure Records FoundRESULTS RESULTS DISCHARGE INSTRUCTION Observed: 05/04/2018 Status: F Source: OLI 4:17 PM REPOSITORY [facility] Medical Records Department [address] [place] [address] Discharge Instruction 05/04/18 1300 MR#: [id number] Acct: [id number] Name: BRAN MENESES Rep #: [id number] : 1980 38 From: Donnie Hernandez MD PCP: Care Physician, No Primary Status: DEP ER ED Disposition - Plan for ED Patient: Disposition: Home or Assisted Living Chief Complaint: Nausea/Vomiting Instructions: ED Nausea Vomiting Prescriptions: Ondansetron [Zofran Odt] 4 mg PO Q4H PRN PRN #10 tab.rapdis PRN Reason: Nausea Referrals: Jerardo Roe MD [NON-STAFF] - 3-5 Days Additional Instructions: Linear fluids and rest. Zofran as needed for nausea. Only consider following up with the outpatient steps local program for alcohol counseling. Follow-up with a local primary care physician. What to do if you have Problems For any increased pain, shortness of breath, bleeding, nausea or vomiting, chest pain, or any unexpected problems, contact your Primary Care Provider. Call [facility] ([phone]) or report to the closest Emergency Room. Call 911 if necessary. 05/04/18 1617 <Electronically signed by Donnie Hernandez MD> Date Donnie Hernandez MD Cosigner Signature (If Indicated): Date CC: No Primary Care Physician EMERGENCY DEPARTMENT Observed: 05/04/2018 Status: F Source: OLI SUMMARY 4:17 PM REPOSITORY [facility] Medical Records Department [address] [place] [address] Emergency Department Summary 05/04/18 1018 MR#: [id number] Acct: [id number] Name: BRAN MENESES Rep #: [id number] : 1980 38 From: Donnie Hernandez MD PCP: Care Physician, No Primary Status: DEP ER - ER Visit Summary Date of Service: 05/04/18 Chief Complaint: Nausea and vomiting History of Present Illness: The patient is a 38 M history of alcohol abuse. Patient states he did drink last night. At 630 this morning he started having nausea and vomiting. He denies any abdominal pain. He denies any fever. He denies any hematemesis nor melena. He has had episodes of vomiting like this before. Physical Examination: Young male no acute distress. Vital signs are stable afebrile. H EENT exam dry mucous membranes. Strong smell of alcohol on his breath. No signs of trauma to his face or scalp. Neck nontender. No lymphadenopathy. Laterally. Heart regular rhythm no murmur. Chest wall nontender. Abdomen soft. Nontender. Nondistended. Normal bowel sounds. No peritoneal signs. No hernias or masses. No signs of obstruction. Moving all 4 extremities. Neurovascular intact. Tremors of his hands bilaterally. Neurologically awake and alert. No focal motor deficits. Patient is awake and alert. Answering questions. Following commands. Test Results: CBC normal white count of 5. Hemoglobin 14. Chemistries normal normal gap 13 and creatinine 0.6. Liver enzymes ALT slightly elevated at 97 AST 131. Lipase normal. Emergency Department Course and Treatment: Patient treated with 1 L normal saline. IV Phenergan. Repeat exam the patient is doing well at 12:45 PM. He feels comfortable being discharged home. His abdomen is benign. He has been able to hold down oral fluids. Treatment Plan: Zofran for nausea. I strongly encouraged the patient to seek alcohol counseling because I think he has an alcohol problem. Disposition: Discharge Impression: Acute nausea and vomiting History of alcohol abuse This note was generated with Mobile [employer] dictation software. It may contain incorrect words, spelling, and punctuation that were not noted in review of the chart prior to signing ED Disposition - Plan for ED Patient: Chief Complaint: Nausea/Vomiting Referrals: Care Physician,No Primary [Primary Care Provider] - What to do if you have Problems For any increased pain, shortness of breath, bleeding, nausea or vomiting, chest pain, or any unexpected problems, contact your Primary Care Provider. Call [facility] ([phone]) or report to the closest Emergency Room. Call 911 if necessary. 05/04/18 6667 <Electronically signed by Donnie Hernandez MD> Date Donnie Hernandez MD Cosigner Signature (If Indicated): Date CC: No Primary Care Physician CBC W/DIFF, AUTOMATED Collected: 05/04/2018 Status: F Source: OLI 10:20 AM REPOSITORY TYPE CODE TESTS RESULT OUT OF RANGE REFERENCE UNITS LAB L100.1000 4.4-11.0 K/mm3 Normal WBC 5.3 LAB L100.1200 4.6-6.2 M/mm3 Normal RBC 4.60 LAB L100.1300 13.0-16.5 g/dl Normal HGB 14.6 LAB L100.1400 40-54 % Normal HCT 43.8 LAB L100.1500 80-94 fL High MCV 95.2 LAB L100.1600 27.0-32.0 pg Normal MCH 31.7 LAB L100.1700 32-36 g/gl Normal MCHC 33.3 LAB L100.1810 11.6-14.6 % Normal RDW CV 13.0 LAB L100.1820 35.1-43.9 fl High RDW SD 44.9 LAB L100.1900 150-450 K/mm3 Normal PLT 179 LAB L100.2000 6.2-12.0 fl Normal MPV 9.1 LAB L100.2100 47-70 % High NEUT% 80.0 LAB L100.2200 19-41 % Low LY% 11.1 LAB L100.2300 0-10 % Normal MONO% 7.0 LAB L100.2400 0-5 % Normal EO% 1.3 LAB L100.2500 0-1 % Normal BASO% 0.6 LAB L100.2550 0.0-0.9 % Normal IM GRAN % 0.000 Result Comment: IG% - Immature Granulocytes (promyelocytes, myelocytes and metamyelocytes) > 1% indicates that a LEFT SHIFT is Present. LAB L100.2620 2.0-7.7 X10 3/uL Normal Absolute Neut 4.2 LAB L100.2720 0.83-4.51 X10 3/ul Low Absolute Lymph 0.59 Performed By: #### L100.0100 #### [facility] [address] [place], [place], [id number] BASIC METABOLIC Collected: 05/04/2018 Status: F Source: SANDY LEVEL PROFILE (BMP) 10:20 AM REPOSITORY TYPE CODE TESTS RESULT OUT OF RANGE REFERENCE UNITS LAB L501.0100 74-106 mg/dL Normal GLU 76 Result Comment: Please note revised GLUCOSE reference range effective 2017. LAB L501.1000 7-18 mg/dL Normal BUN 12 LAB L501.1100 0.70-1.30 mg/dL Low CREAT,SERUM 0.68 Result Comment: The validity of the calculated GFR AND GFRAA in patients over 70 years has not been determined. Clinical correlation is essential. LAB L501.1110 >60 mL/min Normal EST GFR 139 Result Comment: Non- GFR Calc LAB L501.1115 >60 mL/min Normal EST GFR - AA 168 Result Comment: GFR Calc LAB L501.1255 ml/min Normal Estimated CRCL 147.91 LAB L501.1300 10-20 RATIO BUN/CRE Normal 17.6 LAB L501.2200 8.5-10 mg/dL Low .1 CA 8.3 LAB L501.5300 136-14 mmol/L 5 NA Normal 143 LAB L501.5600 3.5-5. mmol/L 1 K Normal 3.8 LAB L501.5900 98-107 mmol/L CL Normal 105 LAB L501.6100 21.0-3 mmol/L 2.0 CO2 Normal 25.0 LAB L501.6200 5-15 GAP Normal 13 Performed By: #### L500.2500, L500.3400, L501.2450 #### [facility] [address] [place], [place], [id number] LIVER PROFILE Collected: 05/04/2018 Status: F Source: SANDY LEVEL 10:20 AM REPOSITORY TYPE CODE TESTS RESULT OUT OF RANGE REFERENCE UNITS LAB L501.1500 6.4-8.2 g/dL Normal T PROT 7.9 LAB L501.1800 3.2-5.0 g/dL Normal ALB 3.8 LAB L501.1950 2.2-4.2 g/dL Normal GLOB 4.1 LAB L501.4100 15-37 U/L High AST 131 LAB L501.4305 45-117 U/L Normal ALK P 77 LAB L501.4405 16-61 U/L High ALT 97 LAB L501.4600 0.20-1.00 mg/dL Normal T BILI 0.70 LAB L501.4700 0.00-0.30 mg/dL Normal D BILI 0.25 Performed By: #### L500.2500, L500.3400, L501.2450 #### [facility] [address] [place], [address] LIPASE Collected: 05/04/2018 Status: F Source: SANDY LEVEL 10:20 AM REPOSITORY TYPE CODE TESTS RESULT OUT OF RANGE REFERENCE UNITS LAB L501.2450 73-393 U/L Normal LIPASE 140 Performed By: #### L500.2500, L500.3400, L501.2450 #### [facility] [address] [place], [address] 12 LEAD ELECTROCARDIOGRAM Observed: 09/24/2017 Status: F Source: SANDY LEVEL 8:56 PM REPOSITORY [facility] Cardiovascular Services [address] [place] [address] 12 Lead EKG 09/19/17 0700 MR#: [id number] Acct: [id number] Name: BRAN MENESES Rep #: [id number] : 1980 37 From: Danilo Myers MD Attending Dr: Thad Jeffery Status: DIS IN Ordering Dr: Maycol Wilhelm MD Date: 09/19/17 Location: [facility] [place] Sex: M C Admitted: 09/19/17 Test Reason : CP Blood Pressure : / mmHG Vent. Rate : 091 BPM Atrial Rate : 091 BPM P-R Int : 118 ms QRS Dur : 092 ms QT Int : 366 ms P-R-T Axes : 075 077 072 degrees QTc Int : 450 ms Normal sinus rhythm Normal ECG Confirmed by DANILO MYERS ([id number]), editor map DERICK CHOWDHURY ([id number]) on 09/21/2017 2:34:56 PM Referred By: CECILIA Confirmed By:DANILO MYERS 09/21/17 1434 Date Danilo Myers MD CC: No Primary Care Physician; Thad Jeffery; Maycol Wilhelm MD Signed DISCHARGE SUMMARY Observed: 09/21/2017 Status: F Source: SANDY LEVEL 3:23 PM REPOSITORY [facility] Medical Records Department [address] [place] [address] Discharge Summary 09/21/17 1420 MR#: [id number] Acct: [id number] Name: BRAN MENESES Rep #: [id number] : 1980 37 From: Thad Jeffery MD PCP: Care Physician, No Primary Status: DIS IN Y Location: [place] [address] Discharge Date and Diagnosis Date of Admission: 09/19/17 Date of Discharge: 09/21/17 - Primary Discharge Diagnosis Active and Suspected Problems #1 acute alcohol withdrawal (Acute) #2 abdominal pain, unclear etiology. #3 mild alcoholic hepatitis. - Secondary Discharge Diagnosis Chronic Problems Alcohol abuse (Chronic) Hospital Course and Treatment Imaging Results: Clinical Impression(s) from Imaging Studies Chest X-Ray 09/19/17 07:10 IMPRESSION: Hyperinflation, component of COPD noted excluded. No pulmonary edema, congestive heart failure or confluent pneumonia. Electronically Signed: Maryan Rose MD at 7:42 EDT , Service support , Abdomen/Pelvis CT 09/19/17 09:07 IMPRESSION: Moderate stool. No bowel obstruction or acute renal pathology. The appendix is normal. Electronically Signed: Zachary Nelson DO at 10:09 EDT Tel , Service support , Operations: None Procedures: None Summary of Care Provided: Patient seen and examined on the day of discharge and appeared to be stable to be discharged home. He is feeling significantly better. His abdominal pain significantly improved. Denies any more nausea vomiting. His vital signs are stable. - Physical Exam General: Alert, Oriented x3, Cooperative, No apparent distress. HEENT: Atraumatic, PERRLA, EOMI. Neck: Supple, No JVD, Negative Carotid Bruits, Trachea Midline, Thyroid Normal. Lungs: Clear to auscultation, Normal air movement, No rhonchi, No wheeze, No rales. Cardiovascular: Regular rate, Regular Rhythm, Normal S1, Normal S2, PMI Normal. Abdomen: Bowel Sounds Present, Soft, voluntary guarding, no rigidity. Non-Distended, No Hepato-splenomegaly. Extremities: No clubbing, No cyanosis, No edema Skin: No rashes, No breakdown Neurological: Neuro grossly intact Vital Signs stable. Hospital course: The patient is a 37 year old M presented to the emergency room because of multiple complaints including abdominal pain, atypical chest pain, nausea, vomiting, restlessness and anxiety and he requested to be admitted for treatment for acute alcohol withdrawal. Patient has been drinking alcohol heavily for a long time. He was admitted and started on treatment for alcohol withdrawal with as needed Ativan, folic acid, thiamine, multivitamins, as needed methocarbamol, Bentyl and IV morphine as needed for pain. On admission, patient complained of abdominal pain and there was no specific etiology identified for it. CT scan abdomen and pelvis without contrast showed no acute findings. Pancreatic lipase was normal. Liver transaminases were slightly elevated and trended down which is attributed to mild alcoholic hepatitis. There was no evidence of gallstones or cholecystitis on CT scan abdomen. Patient had no right upper quadrant pain other than diffuse generalized abdominal pain. His urine drug screen was positive for opioids but patient received IV morphine in the ER as well as in the floor for abdominal pain. With above-mentioned treatment, patient symptoms improved. His abdominal pain also improved and almost resolved. His vital signs remained stable. His liver transaminases trended down. Patient discharged home in a stable medical condition, discharged on folic acid and thiamine supplement, discharged on Protonix, counseled regarding his drinking behavior, recommended to find a PCP and follow-up with him/her in 2 weeks. Discharge Activity: Return to Normal Activity Weight Bearing Status: Full weight bearing Call your doctor if you observe: Fever of 101 or Higher, Shortness of breath, Dizziness, Fainting spells, Chest pain, Increased palpitations (irregular heartbeat), Uncontrolled pain Home Medications: Medications to take at Discharge Folic Acid 1 mg PO DAILY@0800 #30 tab 09/21/17 Pantoprazole Sodium [Protonix] 40 mg PO DAILY #30 tab 09/21/17 Thiamine Hydrochloride [Vitamin B1] 100 mg PO DAILY #30 tab 09/21/17 Following Prescrptions Were Given to Patient: Folic Acid 1 mg PO DAILY@0800 #30 tab Pantoprazole Sodium [Protonix] 40 mg PO DAILY #30 tab Thiamine Hydrochloride [Vitamin B1] 100 mg PO DAILY #30 tab Primary Care Physician: Adrianna James [NON-STAFF] - 3-5 Days if not improving Please follow up with your Primary Care Physician in: 2 weeks. Patient Instructions: The Impact of Alcoholism, Alcoholism: How to be Part of the Solution, Alcoholism: Resources for Family and Friends, Alcoholism: Getting Help, Recovering from Addiction: Continuing with Counseling, ED Withdrawal Alcohol Disposition: Home Minutes spent on discharge:: 28 Patient Condition:: Stable Medical Necessity - Tobacco Use Smoking Status: Never smoker Meaningful Use Info Meaningful Use Diagnoses (Choose all that apply): None applicable Code Visit Inpatient E AND M: 46160 Disch Hosp 09/21/17 1523 <Electronically signed by Thad Jeffery MD> Date Thad Jeffery MD Cosigner Signature (if applicable): Date CC: No Primary Care Physician; Thad Jeffery; Adrianna James Signed DISCHARGE INSTRUCTION Observed: 09/21/2017 Status: F Source: OLI 8:52 AM REPOSITORY [facility] Medical Records Department [address] [place] [address] Instructions for Home/Discharge Instructions 09/21/17 0850 MR#: [id number] Acct: [id number] Name: BRAN MENESES Rep #: [id number] : 1980 37 From: Thad Jeffery MD PCP: Care Physician, No Primary Status: ADM IN - Discharge Diagnoses Current Active Problems: Current Active and Chronic Problems Alcohol withdrawal (Acute) Alcohol abuse (Chronic) You will use the following diet at home:: Regular Your food should be the consistency of: Regular Discharge Activity: Return to Normal Activity Weight Bearing Status: Full weight bearing Call your doctor if you observe: Fever of 101 or Higher, Shortness of breath, Dizziness, Fainting spells, Chest pain, Increased palpitations (irregular heartbeat), Uncontrolled pain Instructions: ED Withdrawal Alcohol, Recovering from Addiction: Continuing with Counseling, The Impact of Alcoholism, Alcoholism: How to be Part of the Solution, Alcoholism: Resources for Family and Friends, Alcoholism: Getting Help Allergies/Adverse Reactions: Allergies No Known Allergies Allergy (Verified 09/19/17 06:50) Medications to take at Discharge Folic Acid 1 mg PO DAILY@0800 #30 tab 09/21/17 Pantoprazole Sodium [Protonix] 40 mg PO DAILY #30 tab 09/21/17 Thiamine Hydrochloride [Vitamin B1] 100 mg PO DAILY #30 tab 09/21/17 The following prescriptions were given: Folic Acid 1 mg PO DAILY@0800 #30 tab Pantoprazole Sodium [Protonix] 40 mg PO DAILY #30 tab Thiamine Hydrochloride [Vitamin B1] 100 mg PO DAILY #30 tab Primary Care Physician: Adrianna James [NON-STAFF] - 3-5 Days if not improving Please follow up with your Primary Care Physician in: 2 weeks. 09/21/17 0852 <Electronically signed by Thad Jeffery MD> Date Thad Jeffery MD CC: No Primary Care Physician LIVER PROFILE Collected: 09/20/2017 Status: F Source: OLI 6:04 AM REPOSITORY TYPE CODE TESTS RESULT OUT OF RANGE REFERENCE UNITS LAB L501.1500 6.4-8.2 g/dL Low T PROT 6.3 LAB L501.1800 3.2-5.0 g/dL Low ALB 2.8 LAB L501.1950 2.2-4.2 g/dL Normal GLOB 3.5 LAB L501.4100 15-37 U/L High AST 64 LAB L501.4305 45-117 U/L Normal ALK P 82 LAB L501.4405 16-61 U/L High ALT 83 LAB L501.4600 0.20-1.00 mg/dL Normal T BILI 0.90 LAB L501.4700 0.00-0.30 mg/dL Normal D BILI 0.23 Performed By: #### L500.3400 #### [facility] [address] [place], [address] EMERGENCY DEPARTMENT Observed: 09/19/2017 Status: F Source: SANDY LEVEL SUMMARY 4:38 PM REPOSITORY [facility] Medical Records Department [address] [place] [address] Emergency Department Summary 09/19/17 0713 MR#: [id number] Acct: [id number] Name: BRAN MENESES Rep #: [id number] : 1980 37 From: Maycol Wilhelm MD PCP: Care Physician, No Primary Status: ADM IN - ER Visit Summary Date of Service: 09/19/17 Chief Complaint: Chest pain History of Present Illness: The patient is a 37 M with no primary care physician. He reports that he has chest pain again at 620 this morning while he was at rest. Describes as a sharp substernal pain without radiation. Is 10 out of 10 at worst and 5 out of 10 currently. It makes him feel shaky, short of breath, and diaphoretic. It is worsened by stress. It is unchanged by exertion. It is relieved by nothing. He denies any associated nausea or vomiting. He does report that it makes him lightheaded. On review of systems patient reports she has had a cough productive yellow sputum for approximate the past 2 months. He does occasionally cough up blood streaked sputum. He has abdominal pain that began this morning and has had one episode of diarrhea today. No blood in his stools. He states the abdominal pain is an aching that is 2 out of 10 in severity. He also complains of dysuria that began today. Physical Examination: Vitals: Stable. Afebrile. General: Well-nourished and well-developed. Head: Normocephalic atraumatic. Neck: Supple, no lymphadenopathy. No JVD. Nontender. Cardiovascular: Regular rate and rhythm. No murmurs. Respiratory: No respiratory distress. Clear to auscultation bilaterally. Moderate tenderness palpation over his sternum that does reproduce his pain. Abdominal: Soft, mild diffuse tenderness to palpation, nondistended, normal bowel sounds. No guarding, rebound, or peritoneal signs. Back: Nontender. Extremities: Nontender, no edema. Skin: Normal color, no rash. Neurologic: Alert and oriented 3. Cranial nerves II through XII are intact. Normal strength and sensation. Psych: Depressed affect. Test Results: EKG is sinus at 91 with no acute changes. CBC is remarkable for monocytes of 11. Chem-7 is marked for CO2 of 20 and calcium of 8.4. LFTs are marked for an ALT of 130, AST 183. Lipase is normal. Troponin is negative. Chest x-ray shows chronic changes. Urinalysis is negative. Alcohol level is 52. CT flank shows no acute disease and a normal appendix. Emergency Department Course and Treatment: Patient had an IV placed. He was given Toradol and Zofran IV. He was given a GI cocktail p.o. patient had increasing tremors and tachycardia. He was given Ativan IV and Librium p.o. The patient was discussed with [facility] wests they have been up to see him after he received Ativan at this time he does not meet criteria for admission to [facility]. However, he disclosed to them that he drinks a 30 pack of beer every 3- 4 days. Clinically he is in alcohol withdrawal. Treatment Plan: The patient was discussed with Dr. Jeffery. He will be admitted to the hospital for stabilization. Disposition: Admitted in improved condition. Impression: 1. Atypical chest pain. 2. Abdominal pain, uncertain cause. 3. Alcohol withdrawal. This note was generated with Phyl[employer] software. It may contain incorrect words, spelling, and punctuation that were not noted in review of the chart prior to signing ED Disposition - Plan for ED Patient: Chief Complaint: Chest Pain Instructions: ED Chest Pain Atypical Unkn Cause Prescriptions: Famotidine [Pepcid] 20 mg PO BID #28 tablet Referrals: Adrianna James [NON-STAFF] - 3-5 Days if not improving What to do if you have Problems For any increased pain, shortness of breath, bleeding, nausea or vomiting, chest pain, or any unexpected problems, contact your Primary Care Provider. Call [facility] ([phone]) or report to the closest Emergency Room. Call 911 if necessary. 09/19/17 1638 <Electronically signed by Maycol Wilhelm MD> Date Maycol Wilhelm MD Cosigner Signature (If Indicated): Date CC: No Primary Care Physician HISTORY AND PHYSICAL Observed: 09/19/2017 Status: F Source: SANDY LEVEL EXAM 1:23 PM REPOSITORY [facility] Medical Records Department [address] [place] [id number] History and Physical 09/19/17 1259 MR#: [id number] Acct: [id number] Name: BRAN MENESES Rep #: [id number] : 1980 37 From: Thad Jeffery MD PCP: Care Physician, No Primary Status: ADM IN Y Location: [facility] [place] LP179-6 Problem List (1) Alcohol withdrawal Status: Acute (2) Alcohol abuse Status: Chronic History of Present Illness Date of Admission: 09/19/17 Chief Complaint: Multiple complaints. The patient is a 37 year old M with past medical history as mentioned above presented to the medicine because of chest pain as reported by ER physician and when I saw the patient, he mentioned that he came in because of suprapubic pain. At this time, the patient is sleepy and lethargic but arousable and I am not sure if he is able to provide good history. He has different complaints. He mentioned that this pain is in the suprapubic region, started this morning, 7 out of 10 in severity, not radiating, sharp pain, associated with difficulty urinating and without aggravating or relieving factors. Reportedly, patient complained of chest pain to the ER physician which also started this morning. He had one episode of diarrhea this morning. According to his mother, his girlfriend mentioned that he has been shaking uncontrollably since last night, very anxious and irritable and she brought him to the emergency room today. In the emergency room, he was slightly tachycardic, other vital signs were stable. His routine blood work was unremarkable. Liver transaminases were slightly elevated. Lipase was normal. Troponin was negative. EKG revealed normal sinus rhythm without evidence of acute ischemic changes. His blood alcohol level was 52. Urinalysis revealed cloudy urine, negative for nitrite, negative for leukocyte esterase, there was only 0-5 disease and rare bacteria. CT scan abdomen and pelvis without contrast showed no evidence of acute intra-abdominal pathology. He is being admitted for acute alcohol withdrawal and elevated liver transaminases likely because of mild alcoholic hepatitis as well as abdominal pain unclear etiology.. Past Medical History Past Medical History (Chronic Problems): Chronic Problems Alcohol abuse (Chronic) Allergies No Known Allergies Allergy (Verified 09/19/17 06:50) Surgical History: - - Surgery for nasal bone fracture. Psychiatric History: No pertinent psych hx Lives: Spouse/ Significant Other Smoking Status: Never smoker Alcohol: Heavy Drugs: None - *Family History Maternal History Items: No pertinent history Paternal History Items: No pertinent history Review of Systems Constitutional: Denies: Anorexia, Chills, Fever, Weakness Eyes: Denies: Blurred vision, Double vision, Drainage, Redness HEENT: Denies: Difficulty Hearing, Ear Pain, Eye Pain, Nasal Congestion, Sore Throat Cardiovascular: Reports: Chest Pain. Denies: Edema, Heaviness, Light Headedness, Orthopnea, Palpitations, Paroxysmal Noc. Dyspnea, Syncope Respiratory: Denies: Cough, Hemoptysis, Pleuritic Pain, Shortness of Breath, Sputum production, Wheezing Gastrointestinal: Reports: Abdominal Pain, Diarrhea, Nausea, Vomiting. Denies: Constipation Genitourinary: Reports: Dysuria. Denies: Frequency, Hematuria Musculoskeletal: Denies: Arm Pain, Back Pain, Foot Pain Skin: Denies: Dryness, Rash Neurological: Denies: Balance problems, Double vision, Slurred speech, Confusion, Headaches, Incoordination, Numbness Psychiatric: Denies: Anxiety, Depression Endocrine: Denies: Change in Body Habitus, Polydipsia VTE Information - Inpt Only VTE Present on Admission: No VTE Mechan Device Prophylaxis: None VTE Pharm Prophylaxis ordered?: No Patient Problems: Active and Suspected Problems Alcohol withdrawal (Acute) - Physical Exam General: Cooperative, - - Sleepy, lethargic but arousable. HEENT: Atraumatic, PERRLA, EOMI Oral: Moist Mucosa, No Gingival or Mucosal Lesions/ Ulcerations Neck: Supple, No JVD, Negative Carotid Bruits, Trachea Midline, Thyroid Normal Size and Texture Lungs: Clear to auscultation, Normal air movement, No rhonchi, No wheeze, No rales Cardiovascular: Regular rate, Regular Rhythm, Normal S1, Normal S2, PMI Normal Abdomen: Bowel Sounds Present, Soft, Non-Distended, No Hepato- splenomegaly, Obese, Tender Extremities: No clubbing, No cyanosis, No edema Skin: No rashes, No breakdown Lymphatic: No Cervical, Supraclavicular, or Inguinal Adenopathy Neurological: Cranial nerves II-XII grossly intact, Motor Exam 5/5 strength throughout Psych/Mental Status: Flat Affect, Alert and oriented to time, place, person, mood and affect Vital Signs Temp Pulse Resp BP Pulse Ox 98.5 F 60 18 114/76 99 09/19/17 12:22 09/19/17 12:22 09/19/17 12:22 09/19/17 12:22 09/19/17 12:22 Oxygen Delivery Method Room Air Weight: 130 lb 5 oz Body Mass Index (BMI) 17.6 Laboratory Tests WBC (4.4-11.0) K/mm3 RBC (4.6-6.2) M/mm3 Hgb (13.0-16.5) g/dl WBC 4.7 (4.4-11.0) K/mm3 Clinical Impression(s) from Imaging Studies Chest X-Ray 09/19/17 07:10 IMPRESSION: Hyperinflation, component of COPD noted excluded. No pulmonary edema, congestive heart failure or confluent pneumonia. Electronically Signed: Maryan Rose MD at 7:42 EDT , Service support , Abdomen/Pelvis CT 09/19/17 09:07 IMPRESSION: Moderate stool. No bowel obstruction or acute renal pathology. The appendix is normal. Electronically Signed: Zachary NelsonDO at 10:09 EDT Tel , Service support , Assessment/Plan Active and Suspected Problems Alcohol withdrawal (Acute) This is a 57 years old male patient presented to the emergency room because of multiple complaints including abdominal pain, chest pain, nausea and vomiting in addition to reported symptoms of uncontrollable shakiness, and anxiety and restlessness in context of heavy drinking alcohol and he is being admitted for acute alcohol withdrawal as well as elevated LFTs. #1 acute alcohol withdrawal: Patient drinks alcohol heavily, every day. At this time, he is lethargic and sleepy because he received Ativan and IV morphine in the ER. His vital signs are stable. Heart rate stabilized, initially was tachycardic. His EKG revealed normal sinus rhythm without evidence of acute ischemic changes. Plan: Admit to [facility] floor, cardiac monitoring, initiate [facility] protocol for alcohol withdrawal, Ativan as needed, folic acid, thiamine supplement, multivitamins, IV fluids with D5 normal saline, urine drug screen. #2 abdominal pain: It is nonspecific. Patient provided multiple complaints to different doctors including myself and the ER physician. CT scan abdomen and pelvis without contrast without evidence of acute findings. Liver transaminases are slightly elevated as below. Lipase is normal. He is tender on abdominal examination, no guarding or rigidity. Appendix is normal on CT scan. Plan for IV morphine as needed, IV fluids, IV antiemetics and IV Pepcid twice daily. #3 atypical chest pain: Again, patient has multiple complaints and I am not sure how much he is reliable. His EKG revealed normal sinus rhythm without evidence of acute ischemic changes. Troponin is negative 1. He is at low risk for CAD, no significant risk factors. At this time, no indication for further cardiac workup. #4 elevated LFT: This is likely because of alcoholic hepatitis. Total bilirubin, direct bilirubin and alkaline phosphatase are normal. Plan to repeat LFTs tomorrow morning. #5 alcohol abuse: Patient has been drinking heavily for many years. Plan as above. #6 DVT prophylaxis: Low risk patient, no prophylaxis indicated. This note was generated with Mobile [employer] dictation software. It may contain incorrect words, spelling, and punctuation that were not noted in checking the note before signing. Code Visit Inpatient E AND M: 78926 Init Hosp L3 09/19/17 1323 <Electronically signed by Thad Jeffery MD> Date Thad Jeffery MD Cosigner Signature: Date (if applicable) CC: No Primary Care Physician; Thad Jeffery Signed URINE DRUG SCREEN Collected: 09/19/2017 Status: F Source: OLI (VISTA) 12:50 PM REPOSITORY TYPE CODE TESTS RESULT OUT OF RANGE REFERENCE UNITS LAB L505.0075 TO BE Normal CONFIRMED Result Comment: CONFIRMATORY TESTING FOR ALL POSITIVE URINE DRUG SCREEN RESULTS WILL ONLY BE SENT OUT UPON PHYSICIAN ORDER. VISTA Urine Drug Screen methods provide only preliminary analytical test results. A more specific alternate chemical method must be used in order to obtain a confirmed analytical result. Gas chromatography/mass spectrometery (GC/MS) is the preferred confirmatory method. Clinical consideration and professional judgement should be applied to any drug of abuse test result, particularly when preliminary positive results are used. URINE TCA TESTING MUST BE ORDERED SEPARATELY. USE TEST MNEMONIC: [facility] LAB L505.5005 VISTA UDS PH 5 Normal LAB L505.5015 <1000 ng/mL AMPHETAMINES Normal NEGATIVE LAB L505.5025 < 200 ng/mL BARBITIURATES Normal NEGATIVE LAB L505.5035 < 200 ng/mL BENZODIAZIPINE Normal NEGATIVE LAB L505.5045 < 300 ng/mL COCAINE Normal NEGATIVE LAB L505.5055 < 500 ng/mL ECSTACY Normal NEGATIVE LAB L505.5065 < 300 ng/mL METHADONE Normal NEGATIVE LAB L505.5075 < 300 High ng/mL OPIATES POSITIVE LAB L505.7062 < 25 ng/mL PCP Normal NEGATIVE LAB L505.5095 < 50 ng/mL THC Normal NEGATIVE Performed By: #### L505.5000 #### [facility] [address] [place], [address] ABDOMEN/PELVIS WITHOUT Observed: 09/19/2017 Status: F Source: SANDY LEVEL CONT 9:08 AM REPOSITORY [facility] Imaging Services [address] [place] [address] Abdomen/Pelvis without Cont MR#: [id number] Acct: [id number] Name: BRAN MENESES Rep #: [id number] : 1980 M 37 From: Zachary Nelson DO PCP: Care Physician, No Primary Status: REG ER Study: Abdomen/Pelvis without Cont Date of Exam: 09/19/17 Exam# [id number] Ordering Dr: Maycol Wilhelm MD STUDY: CT ABDOMEN AND PELVIS WITHOUT CONTRAST REASON FOR EXAM: Male, 37 years old. Abdominal pain, nausea and vomiting RADIATION DOSAGE (If Supplied By Facility): CTDIvol = ( 6.04 ) mGy, DLP = ( 271.80 ) mGycm TECHNIQUE: Transaxial images were obtained from the dome of the diaphragm to the symphysis pubis without oral contrast, and without intravenous contrast. Sagittal and coronal images were reconstructed. Individualized dose optimization techniques were used for this CT. COMPARISON: None. FINDINGS: The visualized lung bases are unremarkable. The visualized portions of the heart are within normal limits. Evaluation of the abdominal viscera is limited in the absence of intravenous contrast. Normal liver. Normal gallbladder and extrahepatic biliary system. Normal spleen. Normal pancreas. Normal bilateral adrenal glands. Normal right kidney. Normal left kidney. Normal visualized stomach. Normal small intestine. There is a moderate amount of stool throughout the colon. The appendix is visualized and appears normal. Normal abdominal aorta. Normal inferior vena cava. Normal retroperitoneum. Normal urinary bladder. Normal abdominal wall. Normal osseous structures. CT/Abdomen/Pelvis without Cont IMPRESSION: Moderate stool. No bowel obstruction or acute renal pathology. The appendix is normal. Electronically Signed: Zacharymary anne Nelson DO at 10:09 EDT Tel , Service support , CC: No Primary Care Physician; Maycol Wilhelm MD Cab Driver: Signed URINALYSIS, COMPLETE Collected: 09/19/2017 Status: F Source: SANDY LEVEL 8:15 AM REPOSITORY Order Comment: Has pt arrived? Y How was Urine Obtained? CLEAN CATCH TYPE CODE TESTS RESULT OUT OF RANGE REFERENCE UNITS LAB L400.3000 Yellow COLOR Normal Yellow LAB L400.3050 Clear Normal CLARITY Sl. Cloudy LAB L400.3200 Normal mg/dl Normal GLUCOSE, UR Normal LAB L400.3300 Negative mg/dL Normal BILIRUBIN URINE Negative LAB L400.3400 Negative mg/dl High 5 KETONE UR LAB L400.3465 1.002-1.030 Normal SP.GR. DIPSTX 1.015 LAB L400.3550 5.0 - 8.0 pH UR Normal 7.0 LAB L400.3600 Negative mg/dl PROT Normal DIPSTX Negative LAB L400.3700 Normal mg/dl High 1 UROBILI LAB L400.3750 Negative Normal NITRITE UR Negative LAB L400.3780 Negative /ul Normal OCCULT BLOOD-UR Negative LAB L400.3800 Negative /ul High LEUK 25 ESTERASE LAB L400.4050 0-5 /hpf WBC Normal 0-5 SEEN LAB L400.4100 0-5 /hpf Normal RBC-UA 0-5 SEEN LAB L400.4150 0-5 /hpf SQUAM Normal EPI 0-5 SEEN LAB L400.4300 None Seen /hpf Normal BACTERIA RARE LAB L400.4350 <or=2+ /hpf Normal MUCUS, URINE RARE Performed By: #### L400.0001 #### [facility] [address] [place], [address] CHEST 1 VIEW Observed: 09/19/2017 Status: F Source: OLI (PORTABLE) 7:12 AM REPOSITORY [facility] Imaging Services [address] [place] [address] Chest 1 View (Portable) MR#: [id number] Acct: [id number] Name: BRAN MENESES Rep #: [id number] : 1980 M 37 From: Maryan Rose MD PCP: Care Physician, No Primary Status: REG ER Study: Chest 1 View (Portable) Date of Exam: 09/19/17 Exam# [id number] Ordering Dr: Maycol Wilhelm MD STUDY: X-RAY CHEST REASON FOR EXAM: Male, 37 years old. Chest pain on and off for a while TECHNIQUE: Single AP portable view of the chest. COMPARISON: None. FINDINGS: There are superimposed monitor leads. There is no demonstrated pneumothorax. There is hyperinflation of the lungs. There is no focal parenchymal abnormality. There is no demonstrated pleural abnormality. Normal size heart. Normal mediastinum and todd. Normal visualized pulmonary arteries. Normal visualized aortic arch and descending thoracic aorta. Normal visualized thoracic spine. Normal visualized ribs, clavicles, and shoulders. There is no demonstrated abnormality of the visualized soft tissue structures of the upper abdomen. RAD/Chest 1 View (Portable) IMPRESSION: Hyperinflation, component of COPD noted excluded. No pulmonary edema, congestive heart failure or confluent pneumonia. Electronically Signed: Maryan Rose MD at 7:42 EDT , Service support , CC: No Primary Care Physician; Maycol Wilhelm MD Cab Driver: Signed CBC W/DIFF, AUTOMATED Collected: 09/19/2017 Status: F Source: SANDY LEVEL 6:58 AM REPOSITORY TYPE CODE TESTS RESULT OUT OF RANGE REFERENCE UNITS LAB L100.1000 4.4-11.0 K/mm3 Normal WBC 4.7 LAB L100.1200 4.6-6.2 M/mm3 Normal RBC 4.67 LAB L100.1300 13.0-16.5 g/dl Normal HGB 14.4 LAB L100.1400 40-54 % Normal HCT 43.7 LAB L100.1500 80-94 fL Normal MCV 93.6 LAB L100.1600 27.0-32.0 pg Normal MCH 30.8 LAB L100.1700 32-36 g/gl Normal MCHC 33.0 LAB L100.1810 11.6-14.6 % Normal RDW CV 12.9 LAB L100.1820 35.1-43.9 fl Normal RDW SD 43.7 LAB L100.1900 150-450 K/mm3 Normal PLT 199 LAB L100.2000 6.2-12.0 fl Normal MPV 9.2 LAB L100.2100 47-70 % Normal NEUT% 48.4 LAB L100.2200 19-41 % Normal LY% 34.7 LAB L100.2300 0-10 % High MONO% 11.4 LAB L100.2400 0-5 % Normal EO% 4.7 LAB L100.2500 0-1 % Normal BASO% 0.8 LAB L100.2550 0.0-0.9 % Normal IM GRAN % 0.000 Result Comment: IG% - Immature Granulocytes (promyelocytes, myelocytes and metamyelocytes) > 1% indicates that a LEFT SHIFT is Present. LAB L100.2620 2.0-7.7 X10 3/uL Normal Absolute Neut 2.3 LAB L100.2720 0.83-4.51 X10 3/ul Normal Absolute Lymph 1.64 Performed By: #### L100.0100 #### [facility] [address] [place], [address] BASIC METABOLIC Collected: 09/19/2017 Status: F Source: SANDY LEVEL PROFILE ([facility]) 6:58 AM REPOSITORY Order Comment: 'TROP' Serial specimen #1, #2, #3, or #4: 1 TYPE CODE TESTS RESULT OUT OF RANGE REFERENCE UNITS LAB L501.0100 74-106 mg/dL Normal GLU 78 Result Comment: Please note revised GLUCOSE reference range effective 2017. LAB L501.1000 7-18 mg/dL Normal BUN 9 LAB L501.1100 0.70-1.30 mg/dL Normal CREAT,SERUM 0.72 Result Comment: The validity of the calculated GFR AND GFRAA in patients over 70 years has not been determined. Clinical correlation is essential. LAB L501.1110 >60 mL/min Normal EST GFR 132 Result Comment: Non- GFR Calc LAB L501.1115 >60 mL/min Normal EST GFR - AA 159 Result Comment: GFR Calc LAB L501.1255 ml/min Normal Estimated CRCL 123.18 LAB L501.1300 10-20 RATIO BUN/CRE Normal 12.6 LAB L501.2200 8.5-10 mg/dL Low .1 CA 8.4 LAB L501.5300 136-14 mmol/L 5 NA Normal 140 LAB L501.5600 3.5-5. mmol/L 1 K Normal 3.7 LAB L501.5900 98-107 mmol/L CL Normal 106 LAB L501.6100 21.0-3 mmol/L Low 2.0 CO2 20.0 LAB L501.6200 5-15 GAP Normal 14 Performed By: #### L500.2500, L500.3400, L501.2450, L501.4010 #### [facility] [address] [place], [place], [id number] LIVER PROFILE Collected: 09/19/2017 Status: F Source: OLI 6:58 AM REPOSITORY Order Comment: 'TROP' Serial specimen #1, #2, #3, or #4: 1 TYPE CODE TESTS RESULT OUT OF RANGE REFERENCE UNITS LAB L501.1500 6.4-8.2 g/dL Normal T PROT 7.8 LAB L501.1800 3.2-5.0 g/dL Normal ALB 3.5 LAB L501.1950 2.2-4.2 g/dL High GLOB 4.3 LAB L501.4100 15-37 U/L High AST 183 LAB L501.4305 45-117 U/L Normal ALK P 106 LAB L501.4405 16-61 U/L High ALT 130 LAB L501.4600 0.20-1.00 mg/dL Normal T BILI 0.70 LAB L501.4700 0.00-0.30 mg/dL Normal D BILI 0.25 Performed By: #### L500.2500, L500.3400, L501.2450, L501.4010 #### [facility] [address] [place], [place], [id number] LIPASE Collected: 09/19/2017 Status: F Source: SANDY LEVEL 6:58 AM REPOSITORY Order Comment: 'TROP' Serial specimen #1, #2, #3, or #4: 1 TYPE CODE TESTS RESULT OUT OF RANGE REFERENCE UNITS LAB L501.2450 73-393 U/L Normal LIPASE 274 Performed By: #### L500.2500, L500.3400, L501.2450, L501.4010 #### [facility] [address] [facility] [id number] TROPONIN-I Collected: 09/19/2017 Status: F Source: SANDY LEVEL 6:58 AM REPOSITORY Order Comment: 'TROP' Serial specimen #1, #2, #3, or #4: 1 TYPE CODE TESTS RESULT OUT OF RANGE REFERENCE UNITS LAB L501.4010 <0.06 ng/mL Normal < 0.02 TROPONIN-I Result Comment: TROPONIN-I EXPECTED VALUES <0.05 NEGATIVE 0.06 - 0.59 AT RISK OF CO > OR = 0.60 SUGGEST CO Performed By: #### L500.2500, L500.3400, L501.2450, L501.4010 #### [facility] [address] [facility] [id number] ALCOHOL, BLOOD Collected: 09/19/2017 Status: F Source: SANDY LEVEL (MEDICAL)-SERUM 6:58 AM REPOSITORY TYPE CODE TESTS RESULT OUT OF RANGE REFERENCE UNITS LAB L501.9100 mg/dL Normal SERUM 52.0 ETOH Result Comment: The serum:whole blood ethanol ratio is approximately 1.14 and varies slightly with hematocrit. Medical Alcohol reference interval and critical value in non-tolerant individuals; 50 - 100 Impairment 100 Intoxication 100 - 250 Severe Poisoning 250 - 400 Deep/possible fatal coma Performed By: #### L501.9100 #### [facility] [address] [place], [address] ALLERGIES ALLERGIES DATE TYPE / CODE NAME / CODE REACTION SEVERITY SOURCE 09/19/2017 Drug No Known Unknown Oli [facility] Allergy/4160 Allergies/F00 Hospital 62049(SNOMED [id number](RXNOR Repository CT) M) ENCOUNTERS ENCOUNTERS ADMIT/DISCHARGE ACCOUNT ADMITTING ENCOUNTER LOCATION SOURCE NUMBER CLASS 05/04/2018/ [id number] Emergency Oli [place] 8 1 [facility] ing:ED Repository 09/19/2017 [id number] [facility], Ambulatory BMSBuilding:B Oli 1 [facility]em [facility] Repository 09/19/2017 [id number] [facility], Ambulatory BMSBuilding:B [place] 4 Ghasem MS.[facility] Repository 09/19/2017 [id number] [facility], Ambulatory BMSBuilding:B Oli 6 Ghasem [facility] Repository 09/19/2017/ [id number] [facility], Inpatient [place] Oli 8 8 Ghasem Encounter [facility] ing:[id number]: Repository MD467Rxt: 1 PAYERS PAYERS ENCOUNTER GUARANTOR PAYER SUBSCRIBER SOURCE 05/04/2018 BRAN HARRISA808 Primary NOT GIVENUNK Oli N [address] Insurance:SELF PAY [place] [address]Tel: (330) Number: Effective Repository [phone] () Date:2018-05-04 09/19/2017 BRAN HARRISA150 Primary NOT GIVENUNK [place] Insurance:SELF PAY [place] [address]Tel: NO Number: Effective Repository PHONE (HP) Date:2017-09-19 09/19/2017 BRAN HARRISA150 Primary NOT GIVENUNK Oli N [place] Insurance:SELF PAY [place] [address]Tel: NO Number: Effective Repository PHONE (HP) Date:2017-09-19 09/19/2017 BRAN HARRISA150 Primary NOT GIVENUNK Oli N [place] Insurance:SELF PAY [place] [address]Tel: NO Number: Effective Repository PHONE () Date:2017-09-19 09/19/2017 BRAN HARRISA150 Primary BRAN LINDSAY: Oli JENSEN [id number] [address]Euw: [place] [id number] Repository PHONE (HP) Date:2017-09-19 09/19/2017 Secondary NOT GIVENUNK Oli Insurance:SELF PAY [facility] Number: Effective Repository Date:2017-09-19
== END 2018-05-04 13:19 | disposition home or self-care (01) ==
PROVIDERS: Emergency Provider Emergency Medicine
DX: R11.2 Nausea with vomiting, unspecified (principal); F10.129 Alcohol abuse with intoxication, unspecified; Y90.9 Presence of alcohol in blood, level not specified
CPT/HCPCS: 80048; 80076; 83690; 85025; 96361; 96374; 99283; J7030

== ENCOUNTER 2019-11-28 08:36 | Inpatient (IN) | payer SELFPAY ==
[2019-11-28 08:37] VITALS: BP 148/100; PULSE 99; RESP 18; TEMP 36.3; O2SAT 98; BMI 20.3
--- NOTE | 2019-11-28 09:16 | CT_ITS ---
STUDY: CT ABDOMEN AND PELVIS WITHOUT CONTRAST REASON FOR EXAM: Male, 39 years old. RECTAL BLEEDING X 2 DAYS, HX-ULCER RADIATION DOSAGE (If Supplied By Facility): CTDIvol = ( 6.72 ) mGy, DLP = ( 299.45 ) mGycm TECHNIQUE: Transaxial images were obtained from the dome of the diaphragm to the symphysis pubis without oral contrast, and without intravenous contrast. Sagittal and coronal images were reconstructed. Individualized dose optimization techniques were used for this CT. COMPARISON: 09/19/2017 FINDINGS: The visualized lung bases are unremarkable. The visualized portions of the heart are within normal limits. Normal liver. Normal gallbladder and extrahepatic biliary system. Normal spleen. Normal pancreas. Normal bilateral adrenal glands. Normal right kidney. Normal left kidney. Normal visualized stomach. Normal small intestine. Markedly wall thickening and stranding in the surrounding fat of the cecum and ascending colon. Differential diagnosis includes infectious colitis, diverticulitis even though no diverticula are seen, Crohn''s colitis, or less likely ischemia or other colonic carcinoma. Small amount of free fluid in the pelvis consistent with peritonitis. No loculated fluid collection to suggest abscess. No pneumoperitoneum to suggest perforation. The appendix is visualized and appears normal. Normal abdominal aorta. Normal inferior vena cava. Normal retroperitoneum. Normal urinary bladder. Normal abdominal wall. Normal osseous structures. CT/Abdomen/Pelvis without Cont IMPRESSION: Inflammatory change of the cecum and ascending colon. Differential diagnosis includes infectious colitis, diverticulitis even though no diverticula are seen, Crohn''s colitis, or less likely ischemia or colonic carcinoma. Small amount of free fluid in the pelvis but no abscess or perforation. Electronically Signed: Aaron Birmingham MD at 10:07 EDT Tel , Service support ,
[2019-11-28 09:21] LABS: Absolute Lymphocyte Count 0.64 X10^3/uL (0.83-4.51); Absolute Neutrophil Count 6.3 X10^3/uL (2.0-7.7); Basophil# 0.02 X10^3/uL; Basophil% 0.3 % (0-1); Hematocrit 48.8 % (40-54); Hemoglobin 16.2 g/dL (13.0-16.5); Lymphocyte # 0.64 X10^3/ul (4.0); Lymphocyte % 8.1 % (19-41); Mean Corp Hgb Conc 33.2 g/dL (32-36); Mean Corpuscular Hgb 32.1 pg (27.0-32.0); Mean Corpuscular Volume 96.6 fL (80-94); Mean Platelet Vol. 9.6 fl (6.2-12.0); Monocyte# 0.92 X10^3/uL; Monocyte% 11.6 % (0-10); NRBC Flagged by Analyzer 0 % (0-5); Neutrophil # 6.34 X10^3/uL (2.7-7.7); Neutrophil % 79.7 % (47-70); Platelet Count 181 K/mm3 (150-450); RBC Distribution Width CV 12.1 % (11.6-14.6); RBC Distribution Width SD 42.8 fl (35.1-43.9); Red Blood Count 5.05 M/mm3 (4.6-6.2); White Blood Count 7.9 K/mm3 (4.4-11.0)
--- NOTE | 2019-11-28 09:27 | ED.VIS.GEN ---
History of Present Illness Chief Complaint: GI Bleed Informant: Patient Onset: Days Current Severity: Mild Maximum Severity: Mild Narrative: Patient complains of crampy abdominal pain copious diarrhea for about 2 days he has had no nausea no fever, he has had no exposures to coronavirus sick individuals or tainted food he works as a cook, he has no history of past medical history, no meds no antibiotics, no prior GI elements of any kind Past Medical History - Allergies and Home Meds Allergies/Adverse Reactions: Allergies No Known Allergies Allergy (Verified 11/28/19 08:38) Primary Care Physician: Care Physician,No Primary [Primary Care Provider] - Past Medical History: None Surgical History: - - Surgery for nasal bone fracture. Smoking Status: Never smoker - Family History Maternal Family History: Reports: No pertinent history Paternal Family History: Reports: No pertinent history Review of Systems General: Denies: Chills, Fever, Sweats Eyes: Denies: Visual changes - bilaterally, Diplopia ENT: Denies: Rhinorrhea, Sore throat Cardiovascular: Denies: Chest pain, Palpitations Respiratory: Denies: Dyspnea, Cough, Dyspnea on exertion Gastrointestinal: Reports: Abdominal pain, Diarrhea. Denies: Nausea, Vomiting, Melena, Hematochezia Genitourinary: Denies: Dysuria, Hematuria, Frequency Musculoskeletal: Denies: Back pain, Extremity Pain Skin: Denies: Rash, Wounds Neurological: Denies: Headache, Weakness, Numbness Physical Exam Vital Signs/Narrative: Vital Signs Temp Pulse Resp BP Pulse Ox 11/28/19 08:37 97.4 F L 99 18 148/100 H 98 General: Well nourished, Well developed, No Acute Distress Head: Normocephalic, Atraumatic Eyes: Perrl, EOMI ENT: Moist mucous membranes, No rhinorrhea Neck: Supple, Nontender Cardiovascular: Regular rate, Regular rhythm, No murmurs Respiratory: No distress, CTA bilaterally, Chest nontender Abdomen: Soft, Nondistended, Normal bowel sounds, - - He has nonspecific abdominal cramping and pain no rebound guarding Back: Nontender, Normal Inspection Extremities: Nontender, No edema Skin: Normal color, No rash Neurological: Alert, Oriented x3, Cranial nerves II-XII grossly intact, Normal Strength, Normal Sensation Psychological: Normal affect, Normal Mood Diagnostic/Tx/Re-eval - Medical Decision Making The differential is extensive IV fluids ED evaluation screening labs CT stool samples ED Disposition - Plan for ED Patient: Referrals: Care Physician,No Primary [Primary Care Provider] -
[2019-11-28 09:36] LABS: ALB/GLOB Ratio 0.8 RATIO (0.9-2.4); AST(SGOT) 40 U/L (15-37); Alanine Aminotransfer ALT/SGPT 41 U/L (16-61); Albumin, Serum 3.9 g/dL (3.2-5.0); Alkaline Phosphatase 111 U/L (45-117); Anion Gap 12 (5-15); BUN 7 mg/dL (7-18); BUN/Creat Ratio 7.8 RATIO (10-20); Calcium,Total 9.2 mg/dL (8.5-10.1); Chloride 96 mmol/L (98-107); EST Glomerular Filtration Rate 101 mL/min (>60); Est Glom Filt Rate - Afr Amer 122 mL/min (>60); Globulin 4.7 g/dL (2.2-4.2); Glucose 114 mg/dL (74-106); Lipase 115 U/L (73-393); Potassium 3.7 mmol/L (3.5-5.1); Protein, Total 8.6 g/dL (6.4-8.2); Sodium Level 133 mmol/L (136-145)
[2019-11-28] MEDS: morphine 8 MG/ML Syringe IV ×2 (09:36→12:16)
[2019-11-28] MEDS: Ondansetron 4 MG/2 ML Vial IV (09:36)
[2019-11-28] MEDS: 0.9% Normal Saline 1,000 ML 1000 ML IV (09:38)
--- NOTE | 2019-11-28 10:52 | HP.PCM_ITS ---
Problem List (1) Rectal bleeding Status: Acute (2) Acute colitis Status: Acute (3) Alcohol abuse Status: Chronic History of Present Illness Date of Admission: 11/28/19 Chief Complaint: Abdominal pain, bloody stool. The patient is a 39 year old M with past medical history as mentioned above presented to the emergency room because of abdominal pain and bloody stool. His symptoms started 2 days ago with abdominal pain, mid abdominal around umbilicus, 8 out of 10 in severity, sharp pain with cramps, not radiating, associated with nausea and vomiting as well as diarrhea with bloody stool and without aggravating or relieving factors. He mentioned that he has more than 20 episodes of bloody stool which was small amount, bright red blood with minimal stool and that was since yesterday. He denied fever or chills. He denied sick contacts or recent travel. He denied recent use of antibiotics. He denied eating outside at a restaurant. He denied personal or family history of inflammatory bowel disease. In the emergency department, his blood pressure was slight elevated, other vital signs are stable. Routine blood work was unremarkable. LFT was remarkable for slightly elevated bilirubin, otherwise normal. Lipase was normal. CT scan abdomen and pelvis without contrast revealed markedly wall thickening and stranding of the cecum and ascending colon, small amount of free fluid in the pelvis, no localized abscess and no pneumoperitoneum. Patient is being admitted for acute colitis of the cecum and ascending colon as well as GI bleed. Past Medical History Past Medical History (Chronic Problems): Chronic Problems Alcohol abuse (Chronic) Allergies No Known Allergies Allergy (Verified 11/28/19 08:38) Home Medications: Ambulatory Orders Medication Instructions Recorded NK 11/28/19 Surgical History: no surgical history, - - Surgery for nasal bone fracture. Psychiatric History: No pertinent psych hx Smoking Status: Never smoker Alcohol: Occasional Drugs: None - *Family History Maternal History Items: No pertinent history Paternal History Items: No pertinent history Review of Systems Constitutional: Reports: Anorexia. Denies: Chills, Fever, Weakness Eyes: Denies: Blurred vision, Double vision, Drainage, Redness HEENT: Denies: Difficulty Hearing, Ear Pain, Eye Pain, Nasal Congestion, Sore Throat Cardiovascular: Denies: Chest Pain, Chest Pressure, Chest Tightness, Heaviness, Light Headedness, Palpitations, Syncope Respiratory: Denies: Cough, Pleuritic Pain, Shortness of Breath, Sputum production, Wheezing Gastrointestinal: Reports: Abdominal Pain, Diarrhea, Hematochezia, Nausea, Vomiting. Denies: Constipation, Hematemesis, Melena Genitourinary: Denies: Dysuria, Frequency, Hematuria Musculoskeletal: Denies: Arm Pain, Back Pain, Foot Pain Skin: Denies: Dryness, Rash Neurological: Denies: Balance problems, Double vision, Change in Speech, Slurred speech, Confusion, Headaches, Incoordination, Numbness Psychiatric: Denies: Anxiety, Depression Endocrine: Denies: Change in Body Habitus, Polydipsia, Polyuria VTE Information - Inpt Only VTE Present on Admission: No VTE Mechan Device Prophylaxis: None VTE Pharm Prophylaxis ordered?: No Patient Problems: Active and Suspected Problems Rectal bleeding (Acute) Acute colitis (Acute) - Physical Exam Vitals/I&O's: Vital Signs Temp Pulse Resp BP Pulse Ox 97.4 F L 99 18 148/100 H 98 11/28/19 08:37 11/28/19 08:37 11/28/19 08:37 11/28/19 08:37 11/28/19 08:37 Oxygen Delivery Method Room Air Weight: 150 lb Body Mass Index (BMI) 20.3 General: Alert, Oriented x3, Cooperative, - - He is in mild distress because of abdominal pain. HEENT: Atraumatic, PERRLA, EOMI, Normocephalic Oral: Moist Mucosa, No Gingival or Mucosal Lesions/ Ulcerations Neck: Supple, No JVD, Negative Carotid Bruits, Trachea Midline, Thyroid Normal Size and Texture Lungs: Clear to auscultation, Normal air movement, No rhonchi, No wheeze, No rales Cardiovascular: Regular rate, Regular Rhythm, Normal S1, Normal S2, PMI Normal Abdomen: Bowel Sounds Present, Non-Distended, No Hepato-splenomegaly, Tender - Significant superficial tenderness, guarding, no rigidity. Extremities: No clubbing, No cyanosis, No edema Skin: No rashes, No breakdown Lymphatic: No Cervical, Supraclavicular, or Inguinal Adenopathy Neurological: Cranial nerves II-XII grossly intact, Neuro grossly intact Psych/Mental Status: Normal Affect, Appropriate, Alert and oriented to time, place, person, mood and affect Laboratory Results 11/28/19 08:55: WBC 7.9, RBC 5.05, Hgb 16.2, Hct 48.8, MCV 96.6 H, MCH 32.1 H, MCHC 33.2, RDW Std Deviation 42.8, RDW Coeff of Payton 12.1, Plt Count 181, MPV 9.6, Immature Gran % (Auto) 0.300, Neut % (Auto) 79.7 H, Lymph % (Auto) 8.1 L, [place] % (Auto) 11.6 H, Eos % (Auto) 0.0, Baso % (Auto) 0.3, Absolute Neuts (auto) 6.3, Absolute Lymphs (auto) 0.64 L, Nucleated RBC % 0 11/28/19 08:55: Sodium 133 L, Potassium 3.7, Chloride 96 L, Carbon Dioxide 25.0, Anion Gap 12, BUN 7, Creatinine 0.90, Estim Creat Clear Calc 107.10, Est GFR (MDRD) Af Amer 122, Est GFR (MDRD) Non-Af 101, BUN/Creatinine Ratio 7.8 L, Glucose 114 H, Calcium 9.2, Total Bilirubin 1.30 H, AST 40 H, ALT 41, Alkaline Phosphatase 111, Total Protein 8.6 H, Albumin 3.9, Globulin 4.7 H, Albumin/Globulin Ratio 0.8 L, Lipase 115 Clinical Impression(s) from Imaging Studies Abdomen/Pelvis CT 11/28/19 09:16 IMPRESSION: Inflammatory change of the cecum and ascending colon. Differential diagnosis includes infectious colitis, diverticulitis even though no diverticula are seen, Crohn''s colitis, or less likely ischemia or colonic carcinoma. Small amount of free fluid in the pelvis but no abscess or perforation. Electronically Signed: Aaron Birmingham MD at 10:07 EDT Tel , Service support , Current Medications Metronidazole (Flagyl) 150 mls @ 150 mls/hr IV X1 ONE Stop: 11/28/19 11:24 Ciprofloxacin (Cipro) 400 mg in 200 mls @ 200 mls/hr IV X1 ONE Stop: 11/28/19 11:24 Assessment/Plan All Active Problems Rectal bleeding (Acute) Acute colitis (Acute) This is a 39 years old male patient presented to the emergency room because of abdominal pain and rectal bleeding, found to have findings consistent with acute colitis of the cecum and ascending colon. #1 acute colitis of the cecum and ascending colon: Differential diagnoses include ischemic colitis, infectious colitis and less likely inflammatory bowel disease. Patient does have quite significant tenderness, guarding without significant rigidity. His vital signs are stable. Routine blood work reviewed. LFT and lipase were unremarkable. Lactic acid is pending. No recent use of antibiotics, no recent sick contacts or travel. Plan: Admit to [facility], n.p.o., IV fluids, IV Dilaudid for pain as needed, IV antiemetics, IV Pepcid twice daily, stool for C. difficile, stool for enteric pathogens, start IV Flagyl and ciprofloxacin, general surgery consult, repeat CBC and CMP tomorrow morning. #2 history of alcohol abuse: Patient did mention that he drinks wine, occasionally alcohol. He did have a history of alcohol abuse and according to him, he is not drinking as much as before. At this time, no evidence of acute alcohol withdrawal. Plan to monitor. #3 DVT prophylaxis: Low risk patient, no prophylaxis indicated. This note was generated with Percolate dictation software. It may contain incorrect words, spelling, and punctuation that were not noted in checking the note before signing. Inpatient E&M: [id number] Init Hosp L3
[2019-11-28] MEDS: Ciprofloxacin 400 MG/200 ML BAG 200 MG IV ×2 (11:08→21:11)
[2019-11-28 11:49] LABS: Lactic Acid 1.1 mmol/L (0.4-1.9)
[2019-11-28] MEDS: 0.9% Normal Saline 1,000 ML 999 ML IV ×2 (11:49→12:21)
[2019-11-28 11:50] VITALS: BP 147/80; PULSE 88; RESP 18; O2SAT 98
--- NOTE | 2019-11-28 12:23 | CON.PCM_ITS ---
Problem List (1) Acute colitis Status: Acute (2) Rectal bleeding Status: Acute Reason for Consult Date of Consultation: 11/28/19 Reason for Consultation: Colitis with bleeding History of Present Illness: The patient is a 39 year old M with abdominal pain and bloody stools. Patient says this was abrupt onset 2 days ago. He said he started abdominal pain in the periumbilical region and has been the same severity ever since. He reports that he has been having bright red bloody diarrhea 10 times per day. No nausea or vomiting. He reports no family history of inflammatory bowel disease. He is not eating any abnormal foods. He has no COVID contacts. Past Medical History Past Medical History (Chronic Problems): Chronic Problems Alcohol abuse (Chronic) Allergies No Known Allergies Allergy (Verified 11/28/19 08:38) Home Medications: Ambulatory Orders Medication Instructions Recorded NK 11/28/19 Surgical History: no surgical history, - - Surgery for nasal bone fracture. Psychiatric History: No pertinent psych hx Smoking Status: Never smoker Alcohol: Occasional Drugs: None - *Family History Maternal History Items: No pertinent history Paternal History Items: No pertinent history Review of Systems Constitutional: Reports: Chills. Denies: Anorexia, Fever HEENT: Denies: Difficulty Swallowing Cardiovascular: Denies: Chest Pain Respiratory: Denies: Cough, Shortness of Breath Gastrointestinal: Reports: Abdominal Pain, Diarrhea, Hematochezia Musculoskeletal: Denies: Joint Tenderness Skin: Denies: Jaundice Neurological: Denies: Balance problems Hematologic/ Lymphatic: Denies: Easy Bleeding Patient Problems: Active and Suspected Problems Rectal bleeding (Acute) Acute colitis (Acute) - Physical Exam Vitals/I&O's: Vital Signs Temp Pulse Resp BP Pulse Ox 97.4 F L 88 18 147/80 H 98 11/28/19 08:37 11/28/19 11:50 11/28/19 11:50 11/28/19 11:50 11/28/19 11:50 Oxygen Delivery Method Room Air Weight: 150 lb Body Mass Index (BMI) 20.3 Intake and Output for Last 24 Hours 11/26/19 11/27/19 11/28/19 23:59 23:59 23:59 Intake Total 1732.8 / 1732.8 Balance 1732.8 / 1732.8 General: Alert, Oriented x3 Neck: No JVD Lungs: Normal air movement Cardiovascular: Regular rate, Regular Rhythm Abdomen: Soft, Non-Distended, Guarding, Tender - Patient is very tender with rebound guarding Extremities: No clubbing Skin: No rashes Musculoskeletal: No Muscle Wasting Neurological: Cranial nerves II-XII grossly intact Psych/Mental Status: Normal Affect Laboratory Results 11/28/19 08:55: WBC 7.9, RBC 5.05, Hgb 16.2, Hct 48.8, MCV 96.6 H, MCH 32.1 H, MCHC 33.2, RDW Std Deviation 42.8, RDW Coeff of Payton 12.1, Plt Count 181, MPV 9.6, Immature Gran % (Auto) 0.300, Neut % (Auto) 79.7 H, Lymph % (Auto) 8.1 L, [place] % (Auto) 11.6 H, Eos % (Auto) 0.0, Baso % (Auto) 0.3, Absolute Neuts (auto) 6.3, Absolute Lymphs (auto) 0.64 L, Nucleated RBC % 0 11/28/19 08:55: Sodium 133 L, Potassium 3.7, Chloride 96 L, Carbon Dioxide 25.0, Anion Gap 12, BUN 7, Creatinine 0.90, Estim Creat Clear Calc 107.10, Est GFR (MDRD) Af Amer 122, Est GFR (MDRD) Non-Af 101, BUN/Creatinine Ratio 7.8 L, Glucose 114 H, Calcium 9.2, Total Bilirubin 1.30 H, AST 40 H, ALT 41, Alkaline Phosphatase 111, Total Protein 8.6 H, Albumin 3.9, Globulin 4.7 H, Albumin/Globulin Ratio 0.8 L, Lipase 115 11/28/19 11:10: Lactic Acid 1.1 Clinical Impression(s) from Imaging Studies Abdomen/Pelvis CT 11/28/19 09:16 IMPRESSION: Inflammatory change of the cecum and ascending colon. Differential diagnosis includes infectious colitis, diverticulitis even though no diverticula are seen, Crohn''s colitis, or less likely ischemia or colonic carcinoma. Small amount of free fluid in the pelvis but no abscess or perforation. Electronically Signed: Aaron Birmingham MD at 10:07 EDT Tel , Service support , Current Medications Sodium Chloride () 1,000 mls @ 999 mls/hr IV .[id number] [facility] Stop: 11/28/19 13:40 Last Admin: 11/28/19 12:21 Dose: 999 mls/hr Documented by: Assessment/Plan All Active Problems Rectal bleeding (Acute) Acute colitis (Acute) 39-year-old male with colitis and rectal bleeding 1. Patient has had a 2-day history of abdominal pain with rectal bleeding. White count is normal but he does appear to be hemoconcentrated. Lactate is normal as well. CT scan reveals a very thickened right colon. There is no pneumatosis. Differential on the CT scan was given his infectious colitis versus inflammatory colitis and less likely ischemia. There is no pneumatosis of the bowel. I am unsure as to the etiology of his colitis at this time. It may be new onset Crohn's. Infectious colitis is being ruled out with stool studies. He is also being tested for COVID. I am concerned for ischemic col itis as well but there is no pneumatosis and the patient has been sick like this for 2 days with a normal white count and no elevated lactate. 2. I will have medicine admit the patient and continue to observe very closely. If there is any change in his vital signs or lab work I will taken for exploratory laparoscopy and possible colectomy. I discussed this with the patient in detail. I discussed surgical options and conservative management and the patient agrees with the treatment plan. I will repeat lactate and labs in 4 hours. Continue fluids and n.p.o. status. Continue IV antibiotics. Ady Hernandez MD Pager: [facility] [address] [place] [address], [address] [place] [address] Office:
[2019-11-28 12:25] VITALS: BP 135/101; PULSE 74; RESP 18; TEMP 36.6; O2SAT 99
[2019-11-28 13:46] VITALS: BP 142/91; PULSE 76; RESP 18; O2SAT 99
[2019-11-28 14:37] VITALS: BMI 19.6; BMI 20.3
[2019-11-28 14:40] VITALS: BP 139/89; PULSE 74; RESP 16; TEMP 36.7; O2SAT 98
--- NOTE | 2019-11-28 15:07 | CASEMGMT ---
RN PEYMAN WOOL SCOURER CM to room to meet with patient for initial transition planning/care coordination assessment. SANDRA MORLEY introduced self and role at [facility]. Pt voices understanding and consents to assessment at this time. Pt is A/O at this time and answers all questions appropriately. Care providers, pharmacy, and demographics verified/updated at this time. PCP: No PCP [facility]erred [facility]acy: [facility] Insurance: None Prescription Benefit: None Living Will/HPOA: Pt does not currently have LW/HCPOA LNOK: [employer] Living Arrangements: Lives alone in 3-story apartment. Independent. 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 States he walks everywhere he needs to go. If it is too far, his friends can assist. States a friend could take him home @ d/c. DME: Denies using any DME and denies needs. HHC/SNF: No history of either and no needs identified. Pt wishes to return home and states has no concerns with going home at time of discharge. CM to follow for any discharge planning/needs. Pt voices no further concerns/needs at this time. Advised pt to ask for CM if any further questions/concerns/needs arise. Voices understanding. PLAN: Home SW C/S: Hx ETOH abuse, financial resources, no PCP. Does not have Insurance/Rx benefits. Follow for cost of any new RX at d/c. Alvin CARR RN, CM
[2019-11-28] MEDS: 0.9% Saline Lock 10 ML Syringe IV ×3 (15:55→22:31)
[2019-11-28] MEDS: Morphine 4 MG/ML Syringe IV ×3 (15:56→20:53)
[2019-11-28 15:59] LABS: Absolute Neutrophil Count 5.9 X10^3/uL (2.0-7.7); Basophil# 0.02 X10^3/uL; Basophil% 0.3 % (0-1); Eosinophil# 0.01 X10^3/uL; Eosinophils% 0.1 % (0-5); Lymphocyte % 10.6 % (19-41); Mean Corp Hgb Conc 32.6 g/dL (32-36); Mean Corpuscular Volume 98.4 fL (80-94); Mean Platelet Vol. 9.6 fl (6.2-12.0); Monocyte# 0.78 X10^3/uL; Monocyte% 10.3 % (0-10); NRBC Flagged by Analyzer 0 % (0-5); Neutrophil # 5.91 X10^3/uL (2.7-7.7); Neutrophil % 78.4 % (47-70); Platelet Count 147 K/mm3 (150-450); RBC Distribution Width CV 11.9 % (11.6-14.6); RBC Distribution Width SD 43.8 fl (35.1-43.9); Red Blood Count 4.37 M/mm3 (4.6-6.2); White Blood Count 7.5 K/mm3 (4.4-11.0)
--- NOTE | 2019-11-28 16:04 | NURSING ---
Addendum entered by Josselyn Rossi 11/28/19 16:14: Information regarding e coli, shigella obtained from CDC website and given to patient. Original Note: Dr. Hernandez called up and requests that patient be notified that he has infectious colitis rather than ischemic, which had been discussed earlier. Notified that he is on Cipro and Flagyl atb's for this and that he will have prn pain meds that he will need to ask for. States pain is 10/10- verbal matches non verbal scale. 4mg Morphine given per order and Lulu updated.
[2019-11-28] MEDS: Lactated Ringers 1,000 ML 100 ML IV (16:12)
[2019-11-28 16:22] LABS: Anion Gap 7 (5-15); BUN 6 mg/dL (7-18); BUN/Creat Ratio 9.7 RATIO (10-20); Calcium,Total 7.8 mg/dL (8.5-10.1); Chloride 106 mmol/L (98-107); Creatinine, Serum 0.62 mg/dL (0.70-1.30); EST Glomerular Filtration Rate 154 mL/min (>60); Est Glom Filt Rate - Afr Amer 186 mL/min (>60); Estimated Creatinine Clearance 150.08 ml/min; Glucose 89 mg/dL (74-106); Potassium 3.9 mmol/L (3.5-5.1); Sodium Level 138 mmol/L (136-145)
[2019-11-28 16:38] LABS: Lactic Acid 0.7 mmol/L (0.4-1.9)
[2019-11-28 20:33] VITALS: BP 145/78; PULSE 84; RESP 18; TEMP 36.8; O2SAT 98
[2019-11-28] MEDS: metroNIDAZOLE 500 MG/100 ML BAG 100 MG IV (22:30)
[2019-11-28] MEDS: Famotidine 200 MG/20 ML MDV 20 MG in 0.9% Normal Saline (Pres. free 8 ML 300 MG IV (22:32)
[2019-11-28 22:47] LABS: Bacteria 0 SEEN /hpf (None Seen); Mucous, Urine 0 SEEN /hpf (<or=2+); Red Blood Cells-Urine 0 SEEN /hpf (0-5); Squamous Epithelial Cells - UA 0 SEEN /hpf (0-5); White Blood Cells 0 SEEN /hpf (0-5)
[2019-11-28 22:49] LABS: Color, Urine Yellow (Yellow); Glucose, Dipstick Normal (Normal); Leukocyte Esterase-Dipstick Negative /ul (Negative); Nitrite-Dipstick Negative (Negative); Occult Blood-Urine Negative /ul (Negative); Protein-Dipstick Negative (Negative); Urine Bilirubin Dipstick Negative (Negative); Urine Clarity Clear (Clear); Urine Urobilinogen Normal (Normal)
[2019-11-28 22:50] LABS: Ketone-Dipstick 150 mg/dl (Negative)
[2019-11-29] VITALS (18 sets, daily range): BP systolic 127–172; BP diastolic 77–131; PULSE 58–188; RESP 11–31; TEMP 35.1–37.1; O2SAT 73–100
[2019-11-29] MEDS: Morphine 4 MG/ML Syringe IV ×3 (00:27→09:16)
[2019-11-29] MEDS: 0.9% Saline Lock 10 ML Syringe IV ×7 (00:28→21:43)
[2019-11-29] MEDS: Lactated Ringers 1,000 ML 100 ML IV ×4 (03:14→21:44)
[2019-11-29 06:11] LABS: Absolute Lymphocyte Count 0.57 X10^3/uL (0.83-4.51); Absolute Neutrophil Count 7.6 X10^3/uL (2.0-7.7); Basophil# 0.02 X10^3/uL; Basophil% 0.2 % (0-1); Eosinophil# 0.01 X10^3/uL; Eosinophils% 0.1 % (0-5); Hematocrit 39.3 % (40-54); Hemoglobin 12.9 g/dL (13.0-16.5); Lymphocyte # 0.57 X10^3/ul (4.0); Lymphocyte % 6.3 % (19-41); Mean Corp Hgb Conc 32.8 g/dL (32-36); Mean Corpuscular Hgb 32.7 pg (27.0-32.0); Mean Corpuscular Volume 99.5 fL (80-94); Mean Platelet Vol. 9.5 fl (6.2-12.0); Monocyte# 0.88 X10^3/uL; Monocyte% 9.6 % (0-10); NRBC Flagged by Analyzer 0 % (0-5); Neutrophil # 7.61 X10^3/uL (2.7-7.7); Neutrophil % 83.5 % (47-70); POSITIVE DIFFERENTIAL YES; Platelet Count 144 K/mm3 (150-450); Red Blood Count 3.95 M/mm3 (4.6-6.2); White Blood Count 9.1 K/mm3 (4.4-11.0)
[2019-11-29 06:13] LABS: Differential Indicated SCAN CRITERIA MET
[2019-11-29] MEDS: metroNIDAZOLE 500 MG/100 ML BAG 100 MG IV ×3 (06:26→21:30)
[2019-11-29 06:48] LABS: ALB/GLOB Ratio 0.8 RATIO (0.9-2.4); AST(SGOT) 22 U/L (15-37); Alanine Aminotransfer ALT/SGPT 27 U/L (16-61); Albumin, Serum 2.8 g/dL (3.2-5.0); Alkaline Phosphatase 75 U/L (45-117); Anion Gap 7 (5-15); BUN 5 mg/dL (7-18); BUN/Creat Ratio 8.6 RATIO (10-20); Calcium,Total 7.8 mg/dL (8.5-10.1); Chloride 102 mmol/L (98-107); Creatinine, Serum 0.58 mg/dL (0.70-1.30); EST Glomerular Filtration Rate 165 mL/min (>60); Est Glom Filt Rate - Afr Amer 199 mL/min (>60); Estimated Creatinine Clearance 160.43 ml/min; Globulin 3.3 g/dL (2.2-4.2); Glucose 95 mg/dL (74-106); Potassium 3.6 mmol/L (3.5-5.1); Protein, Total 6.1 g/dL (6.4-8.2); Sodium Level 134 mmol/L (136-145)
[2019-11-29 07:01] LABS: Differential Comment SCANNED; Reactive Lymphocyte RARE
--- NOTE | 2019-11-29 08:06 | PCM.PN.SRG ---
Patient Problems: Active and Suspected Problems Rectal bleeding (Acute) Acute colitis (Acute) Subjective: Patient is still having bloody diarrhea. He is still having abdominal pain as well. - Physical Exam Vitals/I&O's: Vital Signs Temp Pulse Resp BP Pulse Ox 98.7 F 80 18 144/78 H 96 11/29/19 03:16 11/29/19 03:16 11/29/19 03:16 11/29/19 03:16 11/29/19 03:16 Oxygen Delivery Method Room Air Weight: 144 lb 12.8 oz Body Mass Index (BMI) 19.6 Intake and Output for Last 24 Hours 11/27/19 11/28/19 11/29/19 23:59 23:59 23:59 Intake Total 4333.05 / 4333.05 580 / 580 Balance 4333.05 / 4333.05 580 / 580 General: Alert, Oriented x3 Lungs: Normal air movement Abdomen: Soft, Tender Microbiology Past 72 Hours 11/28/19 10:50 Stool Enteric Bacteriology - Final Shiga Toxin 2 11/28/19 10:50 Stool C. difficile DNA Amplification - Final Laboratory Results 11/28/19 08:55: WBC 7.9, RBC 5.05, Hgb 16.2, Hct 48.8, MCV 96.6 H, MCH 32.1 H, MCHC 33.2, RDW Std Deviation 42.8, RDW Coeff of Payton 12.1, Plt Count 181, MPV 9.6, Immature Gran % (Auto) 0.300, Neut % (Auto) 79.7 H, Lymph % (Auto) 8.1 L, [place] % (Auto) 11.6 H, Eos % (Auto) 0.0, Baso % (Auto) 0.3, Absolute Neuts (auto) 6.3, Absolute Lymphs (auto) 0.64 L, Nucleated RBC % 0 11/28/19 08:55: Sodium 133 L, Potassium 3.7, Chloride 96 L, Carbon Dioxide 25.0, Anion Gap 12, BUN 7, Creatinine 0.90, Estim Creat Clear Calc 107.10, Est GFR (MDRD) Af Amer 122, Est GFR (MDRD) Non-Af 101, BUN/Creatinine Ratio 7.8 L, Glucose 114 H, Calcium 9.2, Total Bilirubin 1.30 H, AST 40 H, ALT 41, Alkaline Phosphatase 111, Total Protein 8.6 H, Albumin 3.9, Globulin 4.7 H, Albumin/Globulin Ratio 0.8 L, Lipase 115 11/28/19 11:10: Lactic Acid 1.1 11/28/19 15:48: WBC 7.5, RBC 4.37 L, Hgb 14.0, Hct 43.0, MCV 98.4 H, MCH 32.0, MCHC 32.6, RDW Std Deviation 43.8, RDW Coeff of Payton 11.9, Plt Count 147 L, MPV 9.6, Immature Gran % (Auto) 0.300, Neut % (Auto) 78.4 H, Lymph % (Auto) 10.6 L, [place] % (Auto) 10.3 H, Eos % (Auto) 0.1, Baso % (Auto) 0.3, Absolute Neuts (auto) 5.9, Absolute Lymphs (auto) 0.80 L, Nucleated RBC % 0 11/28/19 15:48: Sodium 138, Potassium 3.9, Chloride 106, Carbon Dioxide 25.0, Anion Gap 7, BUN 6 L, Creatinine 0.62 L, Estim Creat Clear Calc 150.08, Est GFR (MDRD) Af Amer 186, Est GFR (MDRD) Non-Af 154, BUN/Creatinine Ratio 9.7 L, Glucose 89, Calcium 7.8 L 11/28/19 15:48: Lactic Acid 0.7 11/28/19 22:30: Urine Color Yellow, Urine Clarity Clear, Urine pH 5.0, Ur Specific [place] 1.020, Urine Protein Negative, Urine Glucose (UA) Normal, Urine Ketones 150 H, Urine Occult Blood Negative, Urine Nitrite Negative, Urine Bilirubin Negative, Urine Urobilinogen Normal, Ur Leukocyte Esterase Negative, Urine RBC Pending, Urine WBC Pending, Ur Squamous Epith Cells Pending, Urine Bacteria Pending, Urine Mucus Pending 11/29/19 06:04: WBC 9.1, RBC 3.95 L, Hgb 12.9 L, Hct 39.3 L, MCV 99.5 H, MCH 32.7 H, MCHC 32.8, RDW Std Deviation 44.0 H, RDW Coeff of [place]ton 12.0, Plt Count 144 L, MPV 9.5, Immature Gran % (Auto) 0.300, Neut % (Auto) 83.5 H, Lymph % (Auto) 6.3 L, [place] % (Auto) 9.6, Eos % (Auto) 0.1, Baso % (Auto) 0.2, Absolute Neuts (auto) 7.6, Absolute Lymphs (auto) 0.57 L, Nucleated RBC % 0, Differential Comment SCANNED, Reactive Lymphocytes RARE 11/29/19 06:04: Sodium 134 L, Potassium 3.6, Chloride 102, Carbon Dioxide 25.0, Anion Gap 7, BUN 5 L, Creatinine 0.58 L, Estim Creat Clear Calc 160.43, Est GFR (MDRD) Af Amer 199, Est GFR (MDRD) Non-Af 165, BUN/Creatinine Ratio 8.6 L, Glucose 95, Calcium 7.8 L, Total Bilirubin 1.00, AST 22, ALT 27, Alkaline Phosphatase 75, Total Protein 6.1 L, Albumin 2.8 L, Globulin 3.3, Albumin/Globulin Ratio 0.8 L Current Medications Acetaminophen (Tylenol) 650 mg PO Q6H PRN PRN PRN Reason: Pain Score 1-10/Temp > 100.7 F Sodium Chloride () 250 mls @ 15 mls/hr IV .[id number] PRN PRN Reason: Saline Flush Last Infusion: 11/29/19 07:26 Dose: 15 mls/hr Documented by: Lactated Ringer's () 1,000 mls @ 100 mls/hr IV .Q10H [facility]IGU[facility] Last Admin: 11/29/19 03:14 Dose: 100 mls/hr Documented by: Famotidine 20 mg/ Sodium (Chloride) 10 mls @ 300 mls/hr IV Q12 [facility] Last Infusion: 11/28/19 22:34 Dose: Infused Documented by: Metronidazole (Flagyl) 500 mg in 100 mls @ 100 mls/hr IV Q8 [facility] Last Infusion: 11/29/19 07:26 Dose: Infused Documented by: Ciprofloxacin (Cipro) 400 mg in 200 mls @ 200 mls/hr IV Q12 [facility] Last Infusion: 11/28/19 22:11 Dose: Infused Documented by: Morphine Sulfate () 2 - 4 mg IV Q2H PRN PRN PRN Reason: Pain Score 4-10/10 Morphine Sulfate () 2 - 4 mg IV Q2H PRN PRN PRN Reason: Pain Score 4-10/10 Last Admin: 11/29/19 06:24 Dose: 4 mg Documented by: Ondansetron HCl (Zofran) 4 mg IV Q8H PRN PRN PRN Reason: NAUSEA/VOMITING Sodium Chloride () 10 - 40 ml IV UD PRN PRN Reason: SALINE FLUSH Last Admin: 11/29/19 06:24 Dose: 10 ml Documented by: Zolpidem Tartrate (Ambien (Generic)) 5 mg PO QHS PRN PRN PRN Reason: INSOMNIA Medical Necessity - Tobacco Use Smoking Status: Never smoker Assessment/Plan All Active Problems Rectal bleeding (Acute) Acute colitis (Acute) 39-year-old male with colitis 1. The patient is still having bloody diarrhea and abdominal pain. His abdomen is tender especially on the right side. CT showed thickening of the ascending colon. Stool cultures came back positive for Shiga toxin. Continue supportive care and n.p.o. until pain resolves. Ady Hernandez MD Pager: [facility] [address] [place] [address] [address] [place] [address] Office:
--- NOTE | 2019-11-29 08:29 | PCM.PROGNOTE ---
Patient Problems: Active and Suspected Problems Rectal bleeding (Acute) Acute colitis (Acute) Subjective: Chief complaint: Follow-up after admission for acute colitis of the cecum and ascending colon due to shigellosis. Patient seen and examined. No acute events overnight. He is still complaining of abdominal pain, 5 out of 10 in severity, he reported some improvement. He had 4 episodes of bloody stool since admission. 2 days before admission, he had around 20 times of bloody stools. He denied fever or chills. His vital signs are stable. - Physical Exam Vitals/I&O's: Vital Signs Temp Pulse Resp BP Pulse Ox 98.7 F 80 18 144/78 H 96 11/29/19 03:16 11/29/19 03:16 11/29/19 03:16 11/29/19 03:16 11/29/19 03:16 Oxygen Delivery Method Room Air Weight: 144 lb 12.8 oz Body Mass Index (BMI) 19.6 Intake and Output for Last 24 Hours 11/27/19 11/28/19 11/29/19 23:59 23:59 23:59 Intake Total 4333.05 / 4333.05 580 / 580 Balance 4333.05 / 4333.05 580 / 580 General: Alert, Oriented x3, Cooperative, No apparent distress HEENT: Atraumatic, PERRLA, EOMI, Normocephalic Oral: Moist Mucosa, No Gingival or Mucosal Lesions/ Ulcerations Neck: Supple, No JVD, Negative Carotid Bruits, Trachea Midline, Thyroid Normal Size and Texture Lungs: Clear to auscultation, Normal air movement, No rhonchi, No wheeze, No rales Cardiovascular: Regular rate, Regular Rhythm, Normal S1, Normal S2, No murmurs, PMI Normal Abdomen: Bowel Sounds Present, Non-Distended, No Hepato-splenomegaly, Tender - Generalized tenderness, no guarding or rigidity. Extremities: No clubbing, No cyanosis, No edema Skin: No rashes, No breakdown Lymphatic: No Cervical, Supraclavicular, or Inguinal Adenopathy Neurological: Cranial nerves II-XII grossly intact, Neuro grossly intact Psych/Mental Status: Normal Affect, Appropriate, Alert and oriented to time, place, person, mood and affect Microbiology Past 72 Hours 11/28/19 10:50 Stool Enteric Bacteriology - Final Shiga Toxin 2 11/28/19 10:50 Stool C. difficile DNA Amplification - Final Laboratory Results 11/28/19 08:55: WBC 7.9, RBC 5.05, Hgb 16.2, Hct 48.8, MCV 96.6 H, MCH 32.1 H, MCHC 33.2, RDW Std Deviation 42.8, RDW Coeff of Payton 12.1, Plt Count 181, MPV 9.6, Immature Gran % (Auto) 0.300, Neut % (Auto) 79.7 H, Lymph % (Auto) 8.1 L, [place] % (Auto) 11.6 H, Eos % (Auto) 0.0, Baso % (Auto) 0.3, Absolute Neuts (auto) 6.3, Absolute Lymphs (auto) 0.64 L, Nucleated RBC % 0 11/28/19 08:55: Sodium 133 L, Potassium 3.7, Chloride 96 L, Carbon Dioxide 25.0, Anion Gap 12, BUN 7, Creatinine 0.90, Estim Creat Clear Calc 107.10, Est GFR (MDRD) Af Amer 122, Est GFR (MDRD) Non-Af 101, BUN/Creatinine Ratio 7.8 L, Glucose 114 H, Calcium 9.2, Total Bilirubin 1.30 H, AST 40 H, ALT 41, Alkaline Phosphatase 111, Total Protein 8.6 H, Albumin 3.9, Globulin 4.7 H, Albumin/Globulin Ratio 0.8 L, Lipase 115 11/28/19 11:10: Lactic Acid 1.1 11/28/19 15:48: WBC 7.5, RBC 4.37 L, Hgb 14.0, Hct 43.0, MCV 98.4 H, MCH 32.0, MCHC 32.6, RDW Std Deviation 43.8, RDW Coeff of Payton 11.9, Plt Count 147 L, MPV 9.6, Immature Gran % (Auto) 0.300, Neut % (Auto) 78.4 H, Lymph % (Auto) 10.6 L, [place] % (Auto) 10.3 H, Eos % (Auto) 0.1, Baso % (Auto) 0.3, Absolute Neuts (auto) 5.9, Absolute Lymphs (auto) 0.80 L, Nucleated RBC % 0 11/28/19 15:48: Sodium 138, Potassium 3.9, Chloride 106, Carbon Dioxide 25.0, Anion Gap 7, BUN 6 L, Creatinine 0.62 L, Estim Creat Clear Calc 150.08, Est GFR (MDRD) Af Amer 186, Est GFR (MDRD) Non-Af 154, BUN/Creatinine Ratio 9.7 L, Glucose 89, Calcium 7.8 L 11/28/19 15:48: Lactic Acid 0.7 11/28/19 22:30: Urine Color Yellow, Urine Clarity Clear, Urine pH 5.0, Ur Specific [place] 1.020, Urine Protein Negative, Urine Glucose (UA) Normal, Urine Ketones 150 H, Urine Occult Blood Negative, Urine Nitrite Negative, Urine Bilirubin Negative, Urine Urobilinogen Normal, Ur Leukocyte Esterase Negative, Urine RBC Pending, Urine WBC Pending, Ur Squamous Epith Cells Pending, Urine Bacteria Pending, Urine Mucus Pending 11/29/19 06:04: WBC 9.1, RBC 3.95 L, Hgb 12.9 L, Hct 39.3 L, MCV 99.5 H, MCH 32.7 H, MCHC 32.8, RDW Std Deviation 44.0 H, RDW Coeff of Pay[place] 12.0, Plt Count 144 L, MPV 9.5, Immature Gran % (Auto) 0.300, Neut % (Auto) 83.5 H, Lymph % (Auto) 6.3 L, [place] % (Auto) 9.6, Eos % (Auto) 0.1, Baso % (Auto) 0.2, Absolute Neuts (auto) 7.6, Absolute Lymphs (auto) 0.57 L, Nucleated RBC % 0, Differential Comment SCANNED, Reactive Lymphocytes RARE 11/29/19 06:04: Sodium 134 L, Potassium 3.6, Chloride 102, Carbon Dioxide 25.0, Anion Gap 7, BUN 5 L, Creatinine 0.58 L, Estim Creat Clear Calc 160.43, Est GFR (MDRD) Af Amer 199, Est GFR (MDRD) Non-Af 165, BUN/Creatinine Ratio 8.6 L, Glucose 95, Calcium 7.8 L, Total Bilirubin 1.00, AST 22, ALT 27, Alkaline Phosphatase 75, Total Protein 6.1 L, Albumin 2.8 L, Globulin 3.3, Albumin/Globulin Ratio 0.8 L Microbiology 06/25/20 10:50 Stool Enteric Bacteriology - Final Shiga Toxin 2 11/28/19 10:50 Stool C. difficile DNA Amplification - Final Current Medications Acetaminophen (Tylenol) 650 mg PO Q6H PRN PRN PRN Reason: Pain Score 1-10/Temp > 100.7 F Sodium Chloride () 250 mls @ 15 mls/hr IV .[id number] PRN PRN Reason: Saline Flush Last Infusion: 11/29/19 07:26 Dose: 15 mls/hr Documented by: Lactated Ringer's () 1,000 mls @ 100 mls/hr IV .Q10H [facility] Last Admin: 11/29/19 03:14 Dose: 100 mls/hr Documented by: Famotidine 20 mg/ Sodium (Chloride) 10 mls @ 300 mls/hr IV Q12 [facility] Last Infusion: 11/28/19 22:34 Dose: Infused Documented by: Metronidazole (Flagyl) 500 mg in 100 mls @ 100 mls/hr IV Q8 [facility] Last Infusion: 11/29/19 07:26 Dose: Infused Documented by: Ciprofloxacin (Cipro) 400 mg in 200 mls @ 200 mls/hr IV Q12 [facility] Last Infusion: 11/28/19 22:11 Dose: Infused Documented by: Morphine Sulfate () 2 - 4 mg IV Q2H PRN PRN PRN Reason: Pain Score 4-10/10 Morphine Sulfate () 2 - 4 mg IV Q2H PRN PRN PRN Reason: Pain Score 4-10/10 Last Admin: 11/29/19 06:24 Dose: 4 mg Documented by: Ondansetron HCl (Zofran) 4 mg IV Q8H PRN PRN PRN Reason: NAUSEA/VOMITING Sodium Chloride () 10 - 40 ml IV UD PRN PRN Reason: SALINE FLUSH Last Admin: 11/29/19 06:24 Dose: 10 ml Documented by: Zolpidem Tartrate (Ambien (Generic)) 5 mg PO QHS PRN PRN PRN Reason: INSOMNIA Medical Necessity - Tobacco Use Smoking Status: Never smoker Assessment/Plan All Active Problems Rectal bleeding (Acute) Acute colitis (Acute) This is a 39 years old male patient presented to the emergency room because of abdominal pain and rectal bleeding, found to have findings consistent with acute colitis of the cecum and ascending colon. #1 acute colitis of the cecum and ascending colon: Due to infectious colitis secondary to shigellosis. He is on IV ciprofloxacin and Flagyl. Still having abdominal pain with some improvement, still having bloody diarrhea which is improving. Repeat CBC and CMP today was unremarkable. His vital signs are stable. Stool for C. difficile came back negative. Stool for enteric pathogens came back positive for Shiga toxin 2. Lactic acid was normal making ischemic colitis is unlikely. General surgery on the case. Plan to continue same treatment, keep on n.p.o. for now. #2 history of alcohol abuse: Patient did mention that he drinks wine, occasionally alcohol. He did have a history of alcohol abuse and according to him, he is not drinking as much as before. At this time, no evidence of acute alcohol withdrawal. Plan to monitor. #3 DVT prophylaxis: Low risk patient, no prophylaxis indicated. This note was generated with [employer] dictation software. It may contain incorrect words, spelling, and punctuation that were not noted in checking the note before signing. Inpatient E&M: 78279 Subs Hosp L2
[2019-11-29] MEDS: Famotidine 200 MG/20 ML MDV 20 MG in 0.9% Normal Saline (Pres. free 8 ML 300 MG IV (09:16)
[2019-11-29] MEDS: Ciprofloxacin 400 MG/200 ML BAG 200 MG IV ×2 (09:16→22:45)
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
--- NOTE | 2019-11-29 13:30 | NURSING ---
Patient was found pacing in room and messing with his IV cords. He was saying that he needed to straighten things out and appeared to be looking at things that weren't there near the window and by the chair. When asked about this he said he wasn't looking at anything. This RN asked patient if he drinks alcohol and he told me, only wine a couple times a week. This RN paged Dr. Jeffery and let him know that he was acting like he was going through alcohol w/d. he was having tremors, acting anxious and paranoid. pacing in his room. His CIWA was a 16. Orders were placed by Dr. Jeffery and 2 mg Ativan given IV. Bed alarm set and patient was left with call light in reach.
[2019-11-29] MEDS: LORazepam 2 MG/ML Syringe IV ×4 (13:58→17:02)
--- NOTE | 2019-11-29 15:00 | NURSING ---
Patient has been getting oob and is not steady on feet. He has set the bed alarm off numerous times. He has been disconnecting his IV and hanging the lines on his IV pole. A decision was made to move patient to a room closer to the desk for patient's safety.
--- NOTE | 2019-11-29 16:30 | NURSING ---
Dr. Jeffery was updated that patient's CIWA is 25. This RN has given ativan 2 mg iv q1 hr x3 with no improvement. He is pacing halls with petrol tanker driver's and out at nurses' station wiping things down. Dr. Jeffery wants patient moved to ICU. Roof Slater updated.
--- NOTE | 2019-11-29 17:24 | NURSING ---
report called to Danica in ICU, Chidi came to unit to assist with transfer of pt to ICU.
[2019-11-29] MEDS: Ziprasidone IM 20 MG/ML VIAL 10 MG IM (18:00)
[2019-11-29] MEDS: Haloperidol Lactate 5 MG/ML Vial IM (18:15)
--- NOTE | 2019-11-29 18:17 | EKG12_ITS ---
Test Reason : RAPID RESPONSE Blood Pressure : / mmHG Vent. Rate : 071 BPM Atrial Rate : 071 BPM P-R Int : 140 ms QRS Dur : 104 ms QT Int : 432 ms P-R-T Axes : 076 070 058 degrees QTc Int : 469 ms Normal sinus rhythm Normal ECG When compared with ECG of 19-SEP-2017 07:00, No significant change was found Confirmed by ELMA MYERS ([id number]), editor in chief GABRIELA JUÁREZ ([id number]) on 12/05/2019 12:17:56 PM Referred By: MORENO Confirmed By:ELMA MYERS
[2019-11-29] MEDS: Haloperidol Lactate 5 MG/ML Vial IV (18:26)
--- NOTE | 2019-11-29 19:00 | NURSING ---
At approximately 1730 pt arrived to ICU room 6 escorted by Chidi FLORES and 2 medsurg millinery designer. Pt mildly combative with staff at this time, not sitting down on the bed to have monitoring equipment placed, yelling obscenities and trying to forcefully push self through staff barriers. Pt was able to be placed into bed with 5 staff members assisting to hold him down. Pt actively hallucinating, profusely sweating, tremorous, not directable and confused. Pt placed in 4 point locked restraints d/t escalation of agitation and being combative with staff. Dr. Jeffery made aware by phone. Code michael initiated at approximately 1800 after several attempts made to calm pt with medications, restraints, and redirection. Pt continued to force self off of bed and resist restraints. PUNEET Diego to bedside at this time. Additional med orders received. Pt again continued with agitation and nearing seizure activity so INDEPENDENT CONTRACTOR was initiated at approximately 1820. Dr. Guillory arrived to room, intubation considered and additional medication orders received as documented. Medication noted to take effect [id number] as pt became sedated to RASS -4, and VS returned to more acceptable levels. Pt remains in 4 point locked restraints at this time. VS at 1900 171/77 85 14 100% 6L NC 99.5 temp per core. SR noted on tele. Seizure pads on bed.
--- NOTE | 2019-11-29 19:11 | PN_ITS ---
Progress Note Called to see patient who was combative. Code violent called. Geodon 20 mg IM was given shortly before the Code Violent was called. Patient was in a four- point restraint. Aggressively trying to get out of bed. Several people holding him down. He was reportedly cyanosed and dropped his oxygen saturation. At time of exam, patient was being Ambu bagged, as patient seemed not to be having spontaneous respiration. Upon re-examination, patient had an intact airway, seems to be able to take breath, switched to Ventimask. His heart rate was elevated more than 157, blood pressure was also elevated Patient was sweaty, retaining bed, held down by more than 8 staff members. Patient reportedly had maxed out on his Precedex drip Haldol 5 mg IV given previously, Ativan 2 mg given, Haldol 5mg IV x 1 repeated. Patient started to relax and not fight after 15 mins of medications. Staff member started releasing their human restrains. Patient was subsequently monitored and appeared to be falling asleep. He was kept on the Ventimask. His heart rate seemed to be improving, was 96 at the time of reexamination. He was sweaty, responsive to calls, starting to be lethargic. Oxygen saturation remained 100% on the ventimask. Plan: Patient needs to be monitored closely, continue on Precedex drip. Time spent in the code violent/rapid response:30 mins (6:10 pm-6:40pm) STROKE Vital Signs/Narrative: Vital Signs Temp Pulse Resp BP Pulse Ox 11/29/19 15:55 97.7 F L 105 H 18 162/95 H 95 Procedures: 54719 Prolonged InPt Service; first hour
[2019-11-29 20:18] LABS: Magnesium 1.5 mg/dL (1.6-2.6)
[2019-11-29 20:30] LABS: Anion Gap 7 (5-15); BUN 5 mg/dL (7-18); BUN/Creat Ratio 8.3 RATIO (10-20); Chloride 105 mmol/L (98-107); EST Glomerular Filtration Rate 158 mL/min (>60); Est Glom Filt Rate - Afr Amer 192 mL/min (>60); Estimated Creatinine Clearance 155.08 ml/min; Glucose 108 mg/dL (74-106); Sodium Level 139 mmol/L (136-145)
[2019-11-29 20:52] LABS: Amphetamine Urine VISTA NEGATIVE (<1000 ng/mL); Barbiturate Urine VISTA NEGATIVE (< 200 ng/mL); Benzodiazepine Urine VISTA NEGATIVE (< 200 ng/mL); Cocaine Urine VISTA NEGATIVE (< 300 ng/mL); Ecstacy Urine VISTA NEGATIVE (< 500 ng/mL); Methadone Urine VISTA NEGATIVE (< 300 ng/mL); PCP Urine VISTA NEGATIVE (< 25 ng/mL); THC Urine VISTA NEGATIVE (< 50 ng/mL); Vista UDS pH Range 5
[2019-11-30] VITALS (27 sets, daily range): BP systolic 132–176; BP diastolic 86–127; PULSE 52–94; RESP 10–25; TEMP 35.7–37.1; O2SAT 97–100
[2019-11-30] MEDS: Famotidine 200 MG/20 ML MDV 20 MG in 0.9% Normal Saline (Pres. free 8 ML 300 MG IV ×3 (00:49→21:25)
[2019-11-30 06:00] LABS: Absolute Lymphocyte Count 0.59 X10^3/uL (0.83-4.51); Basophil# 0.03 X10^3/uL; Basophil% 0.4 % (0-1); Eosinophil# 0.02 X10^3/uL; Eosinophils% 0.3 % (0-5); Hematocrit 37.5 % (40-54); Hemoglobin 12.8 g/dL (13.0-16.5); Lymphocyte # 0.59 X10^3/ul (4.0); Lymphocyte % 7.9 % (19-41); Mean Corp Hgb Conc 34.1 g/dL (32-36); Mean Corpuscular Hgb 32.3 pg (27.0-32.0); Mean Corpuscular Volume 94.7 fL (80-94); Mean Platelet Vol. 9.4 fl (6.2-12.0); Monocyte# 0.75 X10^3/uL; Monocyte% 10.1 % (0-10); NRBC Flagged by Analyzer 0 % (0-5); Neutrophil # 6.04 X10^3/uL (2.7-7.7); POSITIVE DIFFERENTIAL YES; Platelet Count 141 K/mm3 (150-450); RBC Distribution Width CV 11.7 % (11.6-14.6); RBC Distribution Width SD 40.7 fl (35.1-43.9); Red Blood Count 3.96 M/mm3 (4.6-6.2); White Blood Count 7.5 K/mm3 (4.4-11.0)
[2019-11-30 06:01] LABS: Differential Indicated SCAN CRITERIA MET
[2019-11-30 06:13] LABS: Anion Gap 8 (5-15); BUN 3 mg/dL (7-18); BUN/Creat Ratio 5.8 RATIO (10-20); Calcium,Total 8.3 mg/dL (8.5-10.1); Chloride 107 mmol/L (98-107); Creatinine, Serum 0.52 mg/dL (0.70-1.30); EST Glomerular Filtration Rate 189 mL/min (>60); Est Glom Filt Rate - Afr Amer 229 mL/min (>60); Estimated Creatinine Clearance 178.94 ml/min; Glucose 91 mg/dL (74-106); Potassium 3.3 mmol/L (3.5-5.1); Sodium Level 140 mmol/L (136-145)
[2019-11-30] MEDS: metroNIDAZOLE 500 MG/100 ML BAG 100 MG IV (06:52)
[2019-11-30] MEDS: Lactated Ringers 1,000 ML 100 ML IV ×2 (06:52→21:25)
--- NOTE | 2019-11-30 08:24 | PN_ITS ---
Patient Problems: Active and Suspected Problems Acute alcohol withdrawal (Acute) Delirium tremens (Acute) Rectal bleeding (Acute) Acute colitis (Acute) Subjective: Chief complaint: Follow-up after admission for acute colitis due to shigellosis and GI bleed. After admission, he developed acute alcohol withdrawal with DTs. Patient seen and examined. He is sedated, on IV Precedex drip maximum dose and started on phenobarbital taper. Although he was very sleepy and lethargic, he opened his eyes up on palpation of his abdomen which is probably because of pain. He was not able to provide any history. He is afebrile, slight elevated, pulse ox is 100 % on room air. - Physical Exam Vitals/I&O's: Vital Signs Temp Pulse Resp BP Pulse Ox 97.5 F L 55 L 20 H 137/100 H 100 11/30/19 06:00 11/30/19 07:47 11/30/19 07:00 11/30/19 07:00 11/30/19 07:00 Oxygen Flow Rate (L/min) 2 Oxygen Delivery Method Room Air Weight: 144 lb 12.8 oz Body Mass Index (BMI) 19.6 Intake and Output for Last 24 Hours 11/28/19 11/29/19 11/30/19 23:59 23:59 23:59 Intake Total 4333.05 / 4333.05 3167.14 / 3418.41 1075.34 / 1075.34 Output Total 2200 / 2200 Balance 4333.05 / 4333.05 3167.14 / 2318.41 -1124.66 / -1124.66 General: No apparent distress, - - Sleepy, lethargic, open eyes to painful stimuli. HEENT: Atraumatic, PERRLA, EOMI, Normocephalic Oral: Moist Mucosa, No Gingival or Mucosal Lesions/ Ulcerations Neck: Supple, No JVD, Negative Carotid Bruits, Trachea Midline, Thyroid Normal Size and Texture Lungs: Clear to auscultation, Normal air movement, No rhonchi, No wheeze, No rales, Diminished Cardiovascular: Regular rate, Regular Rhythm, Normal S1, Normal S2, PMI Normal Abdomen: Bowel Sounds Present, Soft, Non-Distended, No Hepato-splenomegaly, Tender Extremities: No clubbing, No cyanosis, No edema Skin: No rashes, No breakdown Lymphatic: No Cervical, Supraclavicular, or Inguinal Adenopathy Neurological: Cranial nerves II-XII grossly intact, Neuro grossly intact Psych/Mental Status: - - Unable to assess, patient is very sleepy and lethargic. Microbiology Past 72 Hours 11/28/19 10:50 Stool Enteric Bacteriology - Final Shiga Toxin 2 11/28/19 10:50 Stool C. difficile DNA Amplification - Final Laboratory Results 11/29/19 19:50: Urine Opiates Screen POSITIVE H, Urine Methadone Screen NEGATIVE, Ur Barbiturates Screen NEGATIVE, Ur Phencyclidine Scrn NEGATIVE, Ur Amphetamines Screen NEGATIVE, U Methamphetamin-MDMA NEGATIVE, U Benzodiazepines Scrn NEGATIVE, Urine Cocaine Screen NEGATIVE, U Cannabinoids Screen NEGATIVE, Ur Drug Screen Comment 11/29/19 19:50: Magnesium 1.5 L 11/29/19 19:50: Sodium 139, Potassium 3.0 L, Chloride 105, Carbon Dioxide 27.0, Anion Gap 7, BUN 5 L, Creatinine 0.60 L, Estim Creat Clear Calc 155.08, Est GFR (MDRD) Af Amer 192, Est GFR (MDRD) Non-Af 158, BUN/Creatinine Ratio 8.3 L, Glucose 108 H, Calcium 8.0 L 11/30/19 05:45: WBC 7.5, RBC 3.96 L, Hgb 12.8 L, Hct 37.5 L, MCV 94.7 H, MCH 32.3 H, MCHC 34.1, RDW Std Deviation 40.7, RDW Coeff of Payton 11.7, Plt Count 141 L, MPV 9.4, Immature Gran % (Auto) 0.300, Neut % (Auto) 81.0 H, Lymph % (Auto) 7.9 L, [place] % (Auto) 10.1 H, Eos % (Auto) 0.3, Baso % (Auto) 0.4, Absolute Neuts (auto) 6.0, Absolute Lymphs (auto) 0.59 L, Nucleated RBC % 0, Differential Comment COMMENT 11/30/19 05:45: Sodium 140, Potassium 3.3 L, Chloride 107, Carbon Dioxide 25.0, Anion Gap 8, BUN 3 L, Creatinine 0.52 L, Estim Creat Clear Calc 178.94, Est GFR (MDRD) Af Amer 229, Est GFR (MDRD) Non-Af 189, BUN/Creatinine Ratio 5.8 L, Glucose 91, Calcium 8.3 L Current Medications Sodium Chloride () 250 mls @ 15 mls/hr IV .[id number] PRN PRN Reason: Saline Flush Last Infusion: 11/29/19 14:10 Dose: Infused Documented by: Lactated Ringer's () 1,000 mls @ 100 mls/hr IV .Q10H [facility] Last Admin: 11/30/19 06:52 Dose: 100 mls/hr Documented by: Famotidine 20 mg/ Sodium (Chloride) 10 mls @ 300 mls/hr IV Q12 [facility] Last Infusion: 11/30/19 00:51 Dose: Infused Documented by: Metronidazole (Flagyl) 500 mg in 100 mls @ 100 mls/hr IV Q8 [facility] Last Admin: 11/30/19 06:52 Dose: 100 mls/hr Documented by: Ciprofloxacin (Cipro) 400 mg in 200 mls @ 200 mls/hr IV Q12 [facility] Last Infusion: 11/29/19 23:45 Dose: Infused Documented by: Folic Acid 1 mg/ Sodium (Chloride) 50.2 mls @ 200 mls/hr IV DAILY [facility] Thiamine HCl 100 mg/ Sodium (Chloride) 51 mls @ 200 mls/hr IV DAILY [facility] Dexmedetomidine HCl 400 mcg/ (Sodium Chloride) 100 mls @ 8.21 mls/hr CONT INF .[id number] [facility]; Protocol Last Admin: 11/30/19 06:36 Dose: 1.3 mcg/kg/hr, 21.3 mls/hr Documented by: Potassium Chloride () 10 meq in 100 mls @ 100 mls/hr IV BOLUS Q1H [facility] Stop: 11/30/19 10:44 Morphine Sulfate () 2 - 4 mg IV Q2H PRN PRN PRN Reason: Pain Score 4-10/10 Morphine Sulfate () 2 - 4 mg IV Q2H PRN PRN PRN Reason: Pain Score 4-10/10 Last Admin: 11/29/19 09:16 Dose: 4 mg Documented by: Ondansetron HCl (Zofran) 4 mg IV Q8H PRN PRN PRN Reason: NAUSEA/VOMITING Phenobarbital (Phenobarbital) 97.2 mg PO Q4H [facility]; Taper Stop: 12/04/19 14:44 Sodium Chloride () 10 - 40 ml IV UD PRN PRN Reason: SALINE FLUSH Last Admin: 11/29/19 21:43 Dose: 10 ml Documented by: Medical Necessity - Tobacco Use Smoking Status: Never smoker Assessment/Plan All Active Problems Acute alcohol withdrawal (Acute) Delirium tremens (Acute) Rectal bleeding (Acute) Acute colitis (Acute) This is a 39 years old male patient presented to the emergency room because of abdominal pain and rectal bleeding, found to have findings consistent with acute colitis of the cecum and ascending colon. #1 acute colitis of the cecum and ascending colon: Due to infectious colitis secondary to shigellosis. He is on day 3 of IV ciprofloxacin and Flagyl. He is afebrile, blood pressure and heart rate are maintained. Repeat CBC and BMP reviewed, remarkable for hypokalemia, otherwise normal. No leukocytosis. Although patient was sedated on Precedex but on palpation of his abdomen, he opens his eyes likely because of pain. Still having tenderness on abdominal palpation. stool for C. difficile came back negative. Stool for enteric pathogens came back positive for Shiga toxin 2. General surgery on the case. Plan to continue same treatment, continue IV antibiotics, n.p.o., IV fluids. #2 acute alcohol withdrawal/delirium tremens: Although patient was known to me from previous admission for acute alcohol withdrawal, he denied drinking alcohol since admission although I asked him multiple times. Yesterday, he was started on Ativan as needed as well as thiamine folic acid which did not work. He was transferred down to ICU, started on IV Precedex drip which was maxed out and today, he was started on phenobarbital taper. At this time, patient is calm, comfortable. He is on both IV Precedex drip and phenobarbital as well as thiamine folic acid. Plan to continue same treatment. #3 history of alcohol abuse: Although patient denied current alcohol drinking, he went into acute withdrawal with delirium tremens. He did have a history of alcohol abuse and according to him, he is not drinking as much as before. Unfortunately, patient went into delirium tremens as mentioned above. Plan as above. #4 DVT prophylaxis: Low risk patient, no prophylaxis indicated. This note was generated with [employer] software. It may contain incorrect words, spelling, and punctuation that were not noted in checking the note before signing. Inpatient E&M: 13736 Subs Hosp L3
[2019-11-30] MEDS: Potassium Chloride 10mEq/100mL 10 MEQ/100 ML IV.SOLN. 100 MEQ IV BOLUS ×4 (08:25→11:32)
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
--- NOTE | 2019-11-30 08:54 | PN.SURG_ITS ---
Patient Problems: Active and Suspected Problems Acute alcohol withdrawal (Acute) Delirium tremens (Acute) Rectal bleeding (Acute) Acute colitis (Acute) Subjective: Patient is on quite a bit of sedating medicine and will not be waking up. Objective: With palpation he still is having some tenderness in the right lower quadrant. But his abdomen is soft - Physical Exam Vitals/I&O's: Vital Signs Temp Pulse Resp BP Pulse Ox 96.9 F L 54 L 11 L 165/99 H 99 11/30/19 08:00 11/30/19 08:00 11/30/19 08:00 11/30/19 08:00 11/30/19 08:00 Oxygen Flow Rate (L/min) 2 Oxygen Delivery Method Room Air Weight: 144 lb 12.8 oz Body Mass Index (BMI) 19.6 Intake and Output for Last 24 Hours 11/28/19 11/29/19 11/30/19 23:59 23:59 23:59 Intake Total 4333.05 / 4333.05 3167.14 / 3418.41 1175.34 / 1175.34 Output Total 2200 / 2200 Balance 4333.05 / 4333.05 3167.14 / 2318.41 -1024.66 / -1024.66 Microbiology Past 72 Hours 11/28/19 10:50 Stool Enteric Bacteriology - Final Shiga Toxin 2 11/28/19 10:50 Stool C. difficile DNA Amplification - Final Laboratory Results 11/29/19 19:50: Urine Opiates Screen POSITIVE H, Urine Methadone Screen NEGATIVE, Ur Barbiturates Screen NEGATIVE, Ur Phencyclidine Scrn NEGATIVE, Ur Amphetamines Screen NEGATIVE, U Methamphetamin-MDMA NEGATIVE, U Benzodiazepines Scrn NEGATIVE, Urine Cocaine Screen NEGATIVE, U Cannabinoids Screen NEGATIVE, Ur Drug Screen Comment 11/29/19 19:50: Magnesium 1.5 L 11/29/19 19:50: Sodium 139, Potassium 3.0 L, Chloride 105, Carbon Dioxide 27.0, Anion Gap 7, BUN 5 L, Creatinine 0.60 L, Estim Creat Clear Calc 155.08, Est GFR (MDRD) Af Amer 192, Est GFR (MDRD) Non-Af 158, BUN/Creatinine Ratio 8.3 L, Glucose 108 H, Calcium 8.0 L 11/30/19 05:45: WBC 7.5, RBC 3.96 L, Hgb 12.8 L, Hct 37.5 L, MCV 94.7 H, MCH 32.3 H, MCHC 34.1, RDW Std Deviation 40.7, RDW Coeff of [place] 11.7, Plt Count 141 L, MPV 9.4, Immature Gran % (Auto) 0.300, Neut % (Auto) 81.0 H, Lymph % (Auto) 7.9 L, [place] % (Auto) 10.1 H, Eos % (Auto) 0.3, Baso % (Auto) 0.4, Absolute Neuts (auto) 6.0, Absolute Lymphs (auto) 0.59 L, Nucleated RBC % 0, Differential Comment COMMENT 11/30/19 05:45: Sodium 140, Potassium 3.3 L, Chloride 107, Carbon Dioxide 25.0, Anion Gap 8, BUN 3 L, Creatinine 0.52 L, Estim Creat Clear Calc 178.94, Est GFR (MDRD) Af Amer 229, Est GFR (MDRD) Non-Af 189, BUN/Creatinine Ratio 5.8 L, Glucose 91, Calcium 8.3 L Current Medications Sodium Chloride () 250 mls @ 15 mls/hr IV .[id number] PRN PRN Reason: Saline Flush Last Infusion: 11/29/19 14:10 Dose: Infused Documented by: Lactated Ringer's () 1,000 mls @ 100 mls/hr IV .Q10H [facility] Last Admin: 11/30/19 06:52 Dose: 100 mls/hr Documented by: Famotidine 20 mg/ Sodium (Chloride) 10 mls @ 300 mls/hr IV Q12 [facility] Last Infusion: 11/30/19 00:51 Dose: Infused Documented by: Folic Acid 1 mg/ Sodium (Chloride) 50.2 mls @ 200 mls/hr IV DAILY [facility] Thiamine HCl 100 mg/ Sodium (Chloride) 51 mls @ 200 mls/hr IV DAILY [facility] Dexmedetomidine HCl 400 mcg/ (Sodium Chloride) 100 mls @ 8.21 mls/hr CONT INF .[id number] [facility]; Protocol Last Admin: 11/30/19 06:36 Dose: 1.3 mcg/kg/hr, 21.3 mls/hr Documented by: Potassium Chloride () 10 meq in 100 mls @ 100 mls/hr IV BOLUS Q1H [facility] Stop: 11/30/19 10:44 Last Admin: 11/30/19 08:25 Dose: 100 mls/hr Documented by: Morphine Sulfate () 2 - 4 mg IV Q2H PRN PRN PRN Reason: Pain Score 4-10/10 Morphine Sulfate () 2 - 4 mg IV Q2H PRN PRN PRN Reason: Pain Score 4-10/10 Last Admin: 11/29/19 09:16 Dose: 4 mg Documented by: Ondansetron HCl (Zofran) 4 mg IV Q8H PRN PRN PRN Reason: NAUSEA/VOMITING Phenobarbital (Phenobarbital) 97.2 mg PO Q4H [facility]; Taper Stop: 12/04/19 14:44 Last Admin: 11/30/19 08:25 Dose: Not Given Documented by: Sodium Chloride () 10 - 40 ml IV UD PRN PRN Reason: SALINE FLUSH Last Admin: 11/29/19 21:43 Dose: 10 ml Documented by: Medical Necessity - Tobacco Use Smoking Status: Never smoker Assessment/Plan All Active Problems Acute alcohol withdrawal (Acute) Delirium tremens (Acute) Rectal bleeding (Acute) Acute colitis (Acute) Continue with IV antibiotics at this point hopefully he will get good resolution of his DTs. No urgent surgical needs so far. OBSV E&M: 60439 Subsequent observation care L2
[2019-11-30] MEDS: Dexmedetomidine 1,000 mcg in 0.9% NS 240 mL 24.6 MCG CONT INF ×2 (10:36→20:24)
[2019-11-30] MEDS: Phenobarbital Sodium 65 MG/ML Vial IV (11:28)
[2019-11-30] MEDS: LORazepam 2 MG/ML Syringe IV (17:58)
[2019-12-01] VITALS (29 sets, daily range): BP systolic 107–159; BP diastolic 69–115; PULSE 51–124; RESP 11–22; TEMP 35.9–36.4; O2SAT 95–100
[2019-12-01] MEDS: Lactated Ringers 1,000 ML 100 ML IV ×2 (05:39→19:40)
[2019-12-01 05:57] LABS: Absolute Lymphocyte Count 0.92 X10^3/uL (0.83-4.51); Absolute Neutrophil Count 5.5 X10^3/uL (2.0-7.7); Basophil# 0.05 X10^3/uL; Basophil% 0.7 % (0-1); Eosinophil# 0.07 X10^3/uL; Hematocrit 37.3 % (40-54); Hemoglobin 12.3 g/dL (13.0-16.5); Lymphocyte # 0.92 X10^3/ul (4.0); Lymphocyte % 12.7 % (19-41); Mean Corpuscular Hgb 31.9 pg (27.0-32.0); Mean Corpuscular Volume 96.9 fL (80-94); Mean Platelet Vol. 10.3 fl (6.2-12.0); Monocyte# 0.67 X10^3/uL; Monocyte% 9.3 % (0-10); NRBC Flagged by Analyzer 0 % (0-5); Neutrophil # 5.51 X10^3/uL (2.7-7.7); Platelet Count 174 K/mm3 (150-450); RBC Distribution Width CV 12.1 % (11.6-14.6); RBC Distribution Width SD 42.6 fl (35.1-43.9); Red Blood Count 3.85 M/mm3 (4.6-6.2); White Blood Count 7.2 K/mm3 (4.4-11.0)
[2019-12-01 06:06] LABS: Anion Gap 13 (5-15); BUN 6 mg/dL (7-18); BUN/Creat Ratio 13.3 RATIO (10-20); Calcium,Total 7.7 mg/dL (8.5-10.1); Chloride 105 mmol/L (98-107); Creatinine, Serum 0.45 mg/dL (0.70-1.30); EST Glomerular Filtration Rate 222 mL/min (>60); Est Glom Filt Rate - Afr Amer 269 mL/min (>60); Estimated Creatinine Clearance 206.77 ml/min; Glucose 75 mg/dL (74-106); Magnesium 1.6 mg/dL (1.6-2.6); Potassium 3.1 mmol/L (3.5-5.1); Sodium Level 140 mmol/L (136-145)
--- NOTE | 2019-12-01 07:18 | PCM.PN.INT ---
Subjective: Patient did okay overnight. Patient's Precedex has been able to be weaned ~1 from 1.5. Patient's diarrhea has also improved. Patient has remained hemodynamically stable. No significant ectopy has been noted. Patient is more directable today compared to previous. General: - - RASS -1. Follows commands. Still diaphoretic. HEENT: Atraumatic, PERRLA, EOMI, Normocephalic, - - Scleral injection without icterus Oral: Moist Mucosa, No Gingival or Mucosal Lesions/ Ulcerations Neck: Supple, No JVD, No Nodes, Trachea Midline Lungs: Clear to auscultation, Normal air movement, No rhonchi, No wheeze, No rales, - - Symmetric expansion. No dullness to percussion. Cardiovascular: Normal S1, Normal S2, No murmurs, Bradycardic, No rub noted, No Gallop Abdomen: Bowel Sounds Present, Soft, Non Tender, Non-Distended Extremities: No clubbing, No cyanosis, No edema, Capillary Refill Less than 3 Seconds Skin: No rashes, No breakdown Musculoskeletal: No Tenderness to Palpation of Joints or Extremities Lymphatic: No Cervical, Supraclavicular, or Inguinal Adenopathy Neurological: Cranial nerves II-XII grossly intact, Neuro grossly intact - Still with psychomotor agitation. Nonfocal neurologic exam otherwise. Psych/Mental Status: Anxious, Restless - When awaken Vital Signs Temp Pulse Resp BP Pulse Ox 35.9 C L 54 L 12 115/85 H 100 12/01/19 06:00 12/01/19 06:00 12/01/19 06:00 12/01/19 06:00 12/01/19 06:00 Oxygen Flow Rate (L/min) 2 Oxygen Delivery Method Room Air Weight: 65.68 kg Body Mass Index (BMI) 19.6 Intake and Output for Last 24 Hours 11/29/19 11/30/19 12/01/19 23:59 23:59 23:59 Intake Total 3167.14 / 3418.41 3134.33 / 3357.33 944.56 / 944.56 Output Total 3650 / 3975 750 / 750 Balance 3167.14 / 2318.41 -515.67 / -617.67 194.56 / 194.56 Labs (Last 48 Hours) 11/29/19 11/29/1920 19:50 19:50 19:50 WBC RBC Hgb Hct MCV MCH MCHC RDW Std Deviation RDW Coeff of [place] Plt Count MPV Immature Gran % (Auto) Neut % (Auto) Lymph % (Auto) [place] % (Auto) Eos % (Auto) Baso % (Auto) Absolute Neuts (auto) Absolute Lymphs (auto) Nucleated RBC % Differential Comment Sodium 139 Potassium 3.0 L Chloride 105 Carbon Dioxide 27.0 Anion Gap 7 BUN 5 L Creatinine 0.60 L Estim Creat Clear Calc 155.08 Est GFR (MDRD) Af Amer 192 Est GFR (MDRD) Non-Af 158 BUN/Creatinine Ratio 8.3 L Glucose 108 H Calcium 8.0 L Phosphorus Magnesium 1.5 L Urine Opiates Screen POSITIVE H Urine Methadone Screen NEGATIVE Ur Barbiturates Screen NEGATIVE Ur Phencyclidine Scrn NEGATIVE Ur Amphetamines Screen NEGATIVE U Methamphetamin-MDMA NEGATIVE U Benzodiazepines Scrn NEGATIVE Urine Cocaine Screen NEGATIVE U Cannabinoids Screen NEGATIVE Ur Drug Screen Comment 11/30/19 11/30/19 12/01/19 05:45 05:45 04:25 WBC 7.5 7.2 RBC 3.96 L 3.85 L Hgb 12.8 L 12.3 L Hct 37.5 L 37.3 L MCV 94.7 H 96.9 H MCH 32.3 H 31.9 MCHC 34.1 33.0 RDW Std Deviation 40.7 42.6 RDW Coeff of [place] 11.7 12.1 Plt Count 141 L 174 MPV 9.4 10.3 Immature Gran % (Auto) 0.300 0.300 Neut % (Auto) 81.0 H 76.0 H Lymph % (Auto) 7.9 L 12.7 L [place] % (Auto) 10.1 H 9.3 Eos % (Auto) 0.3 1.0 Baso % (Auto) 0.4 0.7 Absolute Neuts (auto) 6.0 5.5 Absolute Lymphs (auto) 0.59 L 0.92 Nucleated RBC % 0 0 Differential Comment COMMENT Sodium 140 Potassium 3.3 L Chloride 107 Carbon Dioxide 25.0 Anion Gap 8 BUN 3 L Creatinine 0.52 L Estim Creat Clear Calc 178.94 Est GFR (MDRD) Af Amer 229 Est GFR (MDRD) Non-Af 189 BUN/Creatinine Ratio 5.8 L Glucose 91 Calcium 8.3 L Phosphorus Magnesium Urine Opiates Screen Urine Methadone Screen Ur Barbiturates Screen Ur Phencyclidine Scrn Ur Amphetamines Screen U Methamphetamin-MDMA U Benzodiazepines Scrn Urine Cocaine Screen U Cannabinoids Screen Ur Drug Screen Comment 12/01/19 04:25 WBC RBC Hgb Hct MCV MCH MCHC RDW Std Deviation RDW Coeff of [place] Plt Count MPV Immature Gran % (Auto) Neut % (Auto) Lymph % (Auto) [place] % (Auto) Eos % (Auto) Baso % (Auto) Absolute Neuts (auto) Absolute Lymphs (auto) Nucleated RBC % Differential Comment Sodium 140 Potassium 3.1 L Chloride 105 Carbon Dioxide 22.0 Anion Gap 13 BUN 6 L Creatinine 0.45 L Estim Creat Clear Calc 206.77 Est GFR (MDRD) Af Amer 269 Est GFR (MDRD) Non-Af 222 BUN/Creatinine Ratio 13.3 Glucose 75 Calcium 7.7 L Phosphorus 3.0 Magnesium 1.6 Urine Opiates Screen Urine Methadone Screen Ur Barbiturates Screen Ur Phencyclidine Scrn Ur Amphetamines Screen U Methamphetamin-MDMA U Benzodiazepines Scrn Urine Cocaine Screen U Cannabinoids Screen Ur Drug Screen Comment Medical Necessity - Tobacco Use Smoking Status: Never smoker Assessment/Plan All Active Problems Acute alcohol withdrawal (Acute) Delirium tremens (Acute) Rectal bleeding (Acute) Acute colitis (Acute) RECOMMENDATIONS: 1. Possibly add p.o. phenobarb taper versus Ativan 2. Continue contact precautions for Shiga toxin 3. Wean Precedex as tolerated 4. Monitor for refeeding syndrome. Supplement electrolytes as indicated 5. Attempt to discontinue restraints IMPRESSIONS: 1. Acute infectious colitis secondary to Shiga toxin Patient with Shiga toxin positive. This would infer Shigella infection versus E. coli 0157:H7. Antibiotics should be discontinued as this can lead to increased risk for HUS. Renal function has continued to do well. Continue with aggressive hydration. Will need to monitor renal status closely. Blood counts appear to be stable at this time. 2. Possible alcohol withdrawal/agitation Patient denies active alcohol use, but does have significant tremors with agitation. Patient is currently on Precedex therapy. Patient did receive a dose of phenobarbital yesterday with some improvement. Would recommend adding a p.o. taper to assist with discontinuation of Precedex. Patient is on thiamine and folate. Attempt to discontinue restraints as soon as possible. 3. Poor historian/history of alcoholism/rhonchi on exam Complicates care, management, recovery and prognosis. Continue to monitor clinically. Saturating well on room air. Inpatient E&M: 27920 Subs Hosp L3
[2019-12-01] MEDS: Potassium Chloride 10mEq/100mL 10 MEQ/100 ML IV.SOLN. 100 MEQ IV BOLUS ×4 (08:33→11:57)
[2019-12-01] MEDS: Dexmedetomidine 1,000 mcg in 0.9% NS 240 mL 14.8 MCG CONT INF (08:50)
--- NOTE | 2019-12-01 08:50 | PN_ITS ---
Patient Problems: Active and Suspected Problems Acute alcohol withdrawal (Acute) Delirium tremens (Acute) Rectal bleeding (Acute) Acute colitis (Acute) Subjective: Chief complaint: Follow-up after admission for acute colitis due to shigellosis and GI bleed. After admission, he developed acute alcohol withdrawal with DTs. Patient seen and examined. No acute events overnight. This morning, he is more calm, sedated and comfortable. He did not wake up for the abdomen palpation. His vital signs are stable. - Physical Exam Vitals/I&O's: Vital Signs Temp Pulse Resp BP Pulse Ox 96.7 F L 54 L 11 L 109/84 H 100 12/01/19 06:00 12/01/19 08:00 12/01/19 08:00 12/01/19 08:00 12/01/19 08:00 Oxygen Flow Rate (L/min) 2 Oxygen Delivery Method Room Air Weight: 144 lb 12.8 oz Body Mass Index (BMI) 19.6 Intake and Output for Last 24 Hours 11/29/19 11/30/19 12/01/19 23:59 23:59 23:59 Intake Total 3167.14 / 3418.41 3134.33 / 3357.33 944.56 / 944.56 Output Total 3650 / 3975 750 / 750 Balance 3167.14 / 2318.41 -515.67 / -617.67 194.56 / 194.56 General: No apparent distress, - - Very sleepy, sedated. HEENT: Atraumatic, PERRLA, EOMI, Normocephalic Oral: Moist Mucosa, No Gingival or Mucosal Lesions/ Ulcerations Neck: Supple, No JVD, Negative Carotid Bruits, Trachea Midline, Thyroid Normal Size and Texture Lungs: Clear to auscultation, Normal air movement, No rhonchi, No wheeze, No rales, Diminished Cardiovascular: Regular rate, Regular Rhythm, Normal S1, Normal S2, PMI Normal Abdomen: Bowel Sounds Present, Soft, Non Tender, Non-Distended, No Hepato- splenomegaly Extremities: No clubbing, No cyanosis, No edema Skin: No rashes, No breakdown Lymphatic: No Cervical, Supraclavicular, or Inguinal Adenopathy Neurological: Cranial nerves II-XII grossly intact, Neuro grossly intact Psych/Mental Status: - - Unable to assess, patient is sedated. Microbiology Past 72 Hours 06/25/20 10:50 Stool Enteric Bacteriology - Final Shiga Toxin 2 11/28/19 10:50 Stool C. difficile DNA Amplification - Final Laboratory Results 12/01/19 04:25: WBC 7.2, RBC 3.85 L, Hgb 12.3 L, Hct 37.3 L, MCV 96.9 H, MCH 31.9, MCHC 33.0, RDW Std Deviation 42.6, RDW Coeff of Payton 12.1, Plt Count 174, MPV 10.3, Immature Gran % (Auto) 0.300, Neut % (Auto) 76.0 H, Lymph % (Auto) 12.7 L, [place] % (Auto) 9.3, Eos % (Auto) 1.0, Baso % (Auto) 0.7, Absolute Neuts (auto) 5.5, Absolute Lymphs (auto) 0.92, Nucleated RBC % 0 12/01/19 04:25: Sodium 140, Potassium 3.1 L, Chloride 105, Carbon Dioxide 22.0, Anion Gap 13, BUN 6 L, Creatinine 0.45 L, Estim Creat Clear Calc 206.77, Est GFR (MDRD) Af Amer 269, Est GFR (MDRD) Non-Af 222, BUN/Creatinine Ratio 13.3, Glucose 75, Calcium 7.7 L, Phosphorus 3.0, Magnesium 1.6 Current Medications Sodium Chloride () 250 mls @ 15 mls/hr IV .[id number] PRN PRN Reason: Saline Flush Last Infusion: 11/29/19 14:10 Dose: Infused Documented by: Lactated Ringer's () 1,000 mls @ 100 mls/hr IV .Q10H [facility] Last Infusion: 12/01/19 06:00 Dose: 100 mls/hr Documented by: Famotidine 20 mg/ Sodium (Chloride) 10 mls @ 300 mls/hr IV Q12 [facility] Last Infusion: 11/30/19 21:27 Dose: Infused Documented by: Folic Acid 1 mg/ Sodium (Chloride) 50.2 mls @ 200 mls/hr IV DAILY [facility] Last Infusion: 11/30/19 12:07 Dose: Infused Documented by: Thiamine HCl 100 mg/ Sodium (Chloride) 51 mls @ 200 mls/hr IV DAILY [facility] Last Infusion: 11/30/19 11:44 Dose: Infused Documented by: Dexmedetomidine HCl 1,000 mcg/ (Sodium Chloride) 250 mls @ 24.63 mls/hr CONT INF .[id number] [facility]; Protocol Last Titration: 12/01/19 06:00 Dose: 1 mcg/kg/hr, 16.4 mls/hr Documented by: Potassium Chloride () 10 meq in 100 mls @ 100 mls/hr IV BOLUS Q1H [facility] Stop: 12/01/19 11:59 Last Admin: 12/01/19 08:33 Dose: 100 mls/hr Documented by: Lorazepam (Ativan) 2 mg IV Q4H PRN PRN PRN Reason: AGITATION Last Admin: 11/30/19 17:58 Dose: 2 mg Documented by: Morphine Sulfate () 2 - 4 mg IV Q2H PRN PRN PRN Reason: Pain Score 4-10/10 Morphine Sulfate () 2 - 4 mg IV Q2H PRN PRN PRN Reason: Pain Score 4-10/10 Last Admin: 11/29/19 09:16 Dose: 4 mg Documented by: Ondansetron HCl (Zofran) 4 mg IV Q8H PRN PRN PRN Reason: NAUSEA/VOMITING Sodium Chloride () 10 - 40 ml IV UD PRN PRN Reason: SALINE FLUSH Last Admin: 11/29/19 21:43 Dose: 10 ml Documented by: Medical Necessity - Tobacco Use Smoking Status: Never smoker Assessment/Plan All Active Problems Acute alcohol withdrawal (Acute) Delirium tremens (Acute) Rectal bleeding (Acute) Acute colitis (Acute) This is a 39 years old male patient presented to the emergency room because of abdominal pain and rectal bleeding, found to have findings consistent with acute colitis of the cecum and ascending colon. #1 acute colitis of the cecum and ascending colon: Due to infectious colitis secondary to shigellosis. IV ciprofloxacin and Flagyl discontinued because of risk of hemolytic uremic syndrome. Vital signs are stable, afebrile. Repeat CBC and BMP from today reviewed and revealed potassium of 3.1, otherwise unremarkable. He is receiving potassium replacement. stool for C. difficile ca me back negative. Stool for enteric pathogens came back positive for Shiga toxin 2. General surgery on the case. Plan: Continue same treatment, start clear liquids. #2 acute alcohol withdrawal/delirium tremens: He is on IV Precedex drip, phenobarbital taper along with IV Ativan as needed. He has been having intermittent agitation and try to get out of bed. This morning, he is more calm, sleepy, vital signs are stable. He is on folic acid and thiamine replacement through the IV. May change phenobarbital taper to p.o. #3 history of alcohol abuse: Although patient denied current alcohol drinking, he went into acute withdrawal with delirium tremens. He did have a history of alcohol abuse and according to him, he is not drinking as much as before. Unfortunately, patient went into delirium tremens as mentioned above. Plan as above. #4 DVT prophylaxis: Low risk patient, no prophylaxis indicated. This note was generated with [employer] dictation software. It may contain incorrect words, spelling, and punctuation that were not noted in checking the note before signing. Inpatient E&M: 57970 Subs Hosp L2
[2019-12-01] MEDS: Folic Acid 1 MG Tablet PO (10:38)
[2019-12-01] MEDS: Thiamine Hydrochloride 100 MG Tablet PO (10:38)
[2019-12-01] MEDS: Famotidine 20 MG Tablet PO ×2 (10:38→21:50)
[2019-12-01] MEDS: Phenobarbital 32.4 MG Tablet 64.8 MG PO ×4 (10:42→21:51)
--- NOTE | 2019-12-01 12:55 | PCM.PN.SRG ---
Patient Problems: Active and Suspected Problems Rectal bleeding (Acute) Acute colitis (Acute) Subjective: Patient still significantly lethargic. Not answering questions. However he is more awake than yesterday. Objective: Abdomen is distended. Slightly tender to touch in the right side. Left side is soft without signs of peritoneal irritation - Physical Exam Vitals/I&O's: Vital Signs Temp Pulse Resp BP Pulse Ox 96.9 F L 55 L 18 107/69 99 12/01/19 12:00 12/01/19 12:00 12/01/19 12:00 12/01/19 12:00 12/01/19 12:00 Oxygen Flow Rate (L/min) 2 Oxygen Delivery Method Room Air Weight: 144 lb 12.794 oz Body Mass Index (BMI) 19.6 Intake and Output for Last 24 Hours 11/29/19 11/30/19 12/01/19 23:59 23:59 23:59 Intake Total 3167.14 / 3418.41 3134.33 / 3357.33 1822.17 / 1822.17 Output Total 3650 / 3975 1450 / 1450 Balance 3167.14 / 2318.41 -515.67 / -617.67 372.17 / 372.17 Microbiology Past 72 Hours 11/28/19 10:50 Stool Enteric Bacteriology - Final Shiga Toxin 2 11/28/19 10:50 Stool C. difficile DNA Amplification - Final Laboratory Results 12/01/19 04:25: WBC 7.2, RBC 3.85 L, Hgb 12.3 L, Hct 37.3 L, MCV 96.9 H, MCH 31.9, MCHC 33.0, RDW Std Deviation 42.6, RDW Coeff of Payton 12.1, Plt Count 174, MPV 10.3, Immature Gran % (Auto) 0.300, Neut % (Auto) 76.0 H, Lymph % (Auto) 12.7 L, [place] % (Auto) 9.3, Eos % (Auto) 1.0, Baso % (Auto) 0.7, Absolute Neuts (auto) 5.5, Absolute Lymphs (auto) 0.92, Nucleated RBC % 0 12/01/19 04:25: Sodium 140, Potassium 3.1 L, Chloride 105, Carbon Dioxide 22.0, Anion Gap 13, BUN 6 L, Creatinine 0.45 L, Estim Creat Clear Calc 206.77, Est GFR (MDRD) Af Amer 269, Est GFR (MDRD) Non-Af 222, BUN/Creatinine Ratio 13.3, Glucose 75, Calcium 7.7 L, Phosphorus 3.0, Magnesium 1.6 Current Medications Famotidine (Pepcid) 20 mg PO BID [facility] Last Admin: 12/01/19 10:38 Dose: 20 mg Documented by: Folic Acid (Folic Acid) 1 mg PO DAILY@0800 [facility] Stop: 12/02/19 08:01 Last Admin: 12/01/19 10:38 Dose: 1 mg Documented by: Sodium Chloride () 250 mls @ 15 mls/hr IV .[id number] PRN PRN Reason: Saline Flush Last Infusion: 11/29/19 14:10 Dose: Infused Documented by: Lactated Ringer's () 1,000 mls @ 100 mls/hr IV .Q10H [facility] Last Infusion: 12/01/19 08:30 Dose: 0 mls/hr Documented by: Dexmedetomidine HCl 1,000 mcg/ (Sodium Chloride) 250 mls @ 24.63 mls/hr CONT INF .[id number] [facility]; Protocol Last Titration: 12/01/19 11:45 Dose: 0 mcg/kg/hr, 0 mls/hr Documented by: Lorazepam (Ativan) 2 mg IV Q4H PRN PRN PRN Reason: AGITATION Last Admin: 11/30/19 17:58 Dose: 2 mg Documented by: Morphine Sulfate () 2 - 4 mg IV Q2H PRN PRN PRN Reason: Pain Score 4-10/10 Morphine Sulfate () 2 - 4 mg IV Q2H PRN PRN PRN Reason: Pain Score 4-10/10 Last Admin: 11/29/19 09:16 Dose: 4 mg Documented by: Ondansetron HCl (Zofran) 4 mg IV Q8H PRN PRN PRN Reason: NAUSEA/VOMITING Phenobarbital (Phenobarbital) 97.2 mg PO Q4H [facility]; Taper Stop: 12/05/19 17:59 Last Admin: 12/01/19 10:42 Dose: 97.2 mg Documented by: Sodium Chloride () 10 - 40 ml IV UD PRN PRN Reason: SALINE FLUSH Last Admin: 11/29/19 21:43 Dose: 10 ml Documented by: Thiamine HCl (Vitamin B1) 100 mg PO DAILYCM [facility] Stop: 12/02/19 08:01 Last Admin: 12/01/19 10:38 Dose: 100 mg Documented by: Medical Necessity - Tobacco Use Smoking Status: Never smoker Assessment/Plan All Active Problems Acute alcohol withdrawal (Acute) Delirium tremens (Acute) Rectal bleeding (Acute) Acute colitis (Acute) Continue present course. Await for his DTs to resolve. Inpatient E&M: 28184 Subs Hosp L2
[2019-12-01] MEDS: 0.9% Saline Lock 10 ML Syringe IV (19:46)
[2019-12-02] VITALS (17 sets, daily range): BP systolic 134–165; BP diastolic 81–99; PULSE 76–111; RESP 14–22; TEMP 36.8–37.6; O2SAT 98–100
[2019-12-02] MEDS: Phenobarbital 32.4 MG Tablet 64.8 MG PO ×6 (01:40→21:42)
[2019-12-02] MEDS: LORazepam 2 MG/ML Syringe IV (01:58)
--- NOTE | 2019-12-02 02:11 | NURSING ---
Pt expressing agitation and aggravation due to excessive use of BSC for liquid stool. Requesting something to help him sleep. Administered ordered Ativan. Pt appreciative.
[2019-12-02] MEDS: Lactated Ringers 1,000 ML 100 ML IV ×2 (05:46→19:11)
--- NOTE | 2019-12-02 06:24 | PCM.PN.INT ---
Subjective: The patient was seen and examined at the bedside this morning. Events from the last 24 hours have been reviewed. The patient currently has a low-grade fever but remains hemodynamically stable and is maintaining appropriate oxygen saturations on room air. The patient's alcohol withdrawal symptoms have been controlled on the phenobarbital. The patient is without complaints of abdominal pain this morning. Objective: The patient's most recent lab work, culture data and imaging studies have all been personally reviewed. Enteric panel was positive for Shiga toxin. C. difficile was negative. General: Alert, Cooperative HEENT: Atraumatic, Normocephalic Oral: No Gingival or Mucosal Lesions/ Ulcerations Neck: Supple, No Nodes, Trachea Midline Lungs: Diminished Cardiovascular: Normal S1, Normal S2, Tachycardic Abdomen: Bowel Sounds Present, Soft, Non Tender Extremities: No clubbing, No cyanosis, No edema Skin: No breakdown Musculoskeletal: No Tenderness to Palpation of Joints or Extremities Lymphatic: No Cervical, Supraclavicular, or Inguinal Adenopathy Neurological: - - No focal neurological deficits. Tremulous. Psych/Mental Status: Flat Affect Vital Signs Temp Pulse Resp BP Pulse Ox 99.3 F H 76 22 H 137/81 H 99 12/02/19 04:00 12/02/19 06:00 12/02/19 06:00 12/02/19 06:00 12/02/19 06:00 Oxygen Flow Rate (L/min) 2 Oxygen Delivery Method Room Air Weight: 144 lb 6.444 oz Body Mass Index (BMI) 19.6 Intake and Output for Last 24 Hours 11/30/19 12/01/19 12/02/19 23:59 23:59 23:59 Intake Total 3134.33 / 3357.33 3207.17 / 3447.17 1006.67 / 1006.67 Output Total 3650 / 3975 2150 / 2150 Balance -515.67 / -617.67 1057.17 / 1297.17 1006.67 / 1006.67 Labs (Last 48 Hours) 12/01/19 12/01/19 04:25 04:25 WBC 7.2 RBC 3.85 L Hgb 12.3 L Hct 37.3 L MCV 96.9 H MCH 31.9 MCHC 33.0 RDW Std Deviation 42.6 RDW Coeff of Payton 12.1 Plt Count 174 MPV 10.3 Immature Gran % (Auto) 0.300 Neut % (Auto) 76.0 H Lymph % (Auto) 12.7 L [place] % (Auto) 9.3 Eos % (Auto) 1.0 Baso % (Auto) 0.7 Absolute Neuts (auto) 5.5 Absolute Lymphs (auto) 0.92 Nucleated RBC % 0 Sodium 140 Potassium 3.1 L Chloride 105 Carbon Dioxide 22.0 Anion Gap 13 BUN 6 L Creatinine 0.45 L Estim Creat Clear Calc 206.77 Est GFR (MDRD) Af Amer 269 Est GFR (MDRD) Non-Af 222 BUN/Creatinine Ratio 13.3 Glucose 75 Calcium 7.7 L Phosphorus 3.0 Magnesium 1.6 Clinical Impression(s) from Imaging Studies Abdomen/Pelvis CT 11/28/19 09:16 IMPRESSION: Inflammatory change of the cecum and ascending colon. Differential diagnosis includes infectious colitis, diverticulitis even though no diverticula are seen, Crohn''s colitis, or less likely ischemia or colonic carcinoma. Small amount of free fluid in the pelvis but no abscess or perforation. Electronically Signed: Aaron Birmingham MD at 10:07 EDT Tel , Service support , Medical Necessity - Tobacco Use Smoking Status: Never smoker Assessment/Plan All Active Problems Acute alcohol withdrawal (Acute) Delirium tremens (Acute) Rectal bleeding (Acute) Acute colitis (Acute) RECOMMENDATIONS: 1. Continue phenobarbital taper and as needed Ativan. 2. Continue supplemental IV fluids to offset any gastrointestinal losses. 3. Additional electrolyte repletion as ordered. 4. Encourage incentive spirometer use and mobilize patient as tolerated. 5. Will sign off from a critical care perspective. IMPRESSIONS: 1. Acute infectious colitis The patient was noted to be positive for Shiga toxin. Plan to continue current supportive measures with supplemental IV fluids to offset any gastrointestinal losses. Avoid antimicrobials. 2. Acute alcohol withdrawal The patient has been weaned from Precedex therapy and is symptomatically controlled on phenobarbital. 3. Hypokalemia Aggressive electrolyte repletion. Recheck levels in the morning. 4. Poor historian/history of alcoholism Complicates care, management, recovery and prognosis. Continue management of alcohol withdrawal as noted above. This note was generated with [employer] software. It may contain incorrect words, spelling, and punctuation that were not noted in checking the note before signing. Inpatient E&M: 34488 Subs Hosp L3
--- NOTE | 2019-12-02 07:33 | PN_ITS ---
Patient Problems: Active and Suspected Problems Rectal bleeding (Acute) Acute colitis (Acute) Reason for Visit: acute colitis due to shigellosis and GI bleed. Subjective: Patient seen still remains tremulous Objective: GENERAL: Significantly flat affect, tremulous at rest HEENT: Atraumatic; EYES; Anicteric, Normal Conjunctiva NECK; supple, normal thyroid, RESPIRATORY: Diminished to auscultation CARDIOVASCULAR: Regular S1 S2, GI: soft, normoactive bowel sounds, : No Renal angle tenderness; EXTREMITIES: No edema, no clubbing, NEURO: Awake; no lateralizing signs. SKIN: No Rash PSYCH; Flat affect Vitals/I&O's: Vital Signs Temp Pulse Resp BP Pulse Ox 99.3 F H 97 18 137/90 H 100 12/02/19 04:00 12/02/19 07:00 12/02/19 07:00 12/02/19 07:00 12/02/19 07:00 Oxygen Flow Rate (L/min) 2 Oxygen Delivery Method Room Air Weight: 65.5 kg Body Mass Index (BMI) 19.6 Intake and Output for Last 24 Hours 11/30/19 12/01/19 12/02/19 23:59 23:59 23:59 Intake Total 3134.33 / 3357.33 3207.17 / 3447.17 1006.67 / 1006.67 Output Total 3650 / 3975 2150 / 2150 Balance -515.67 / -617.67 1057.17 / 1297.17 1006.67 / 1006.67 Current Medications Famotidine (Pepcid) 20 mg PO BID [facility] Last Admin: 12/01/19 21:50 Dose: 20 mg Documented by: Folic Acid (Folic Acid) 1 mg PO DAILY@0800 [facility] Stop: 12/02/19 08:01 Last Admin: 12/01/19 10:38 Dose: 1 mg Documented by: Sodium Chloride () 250 mls @ 15 mls/hr IV .[id number] PRN PRN Reason: Saline Flush Last Infusion: 11/29/19 14:10 Dose: Infused Documented by: Lactated Ringer's () 1,000 mls @ 100 mls/hr IV .Q10H [facility] Last Admin: 12/02/19 05:46 Dose: 100 mls/hr Documented by: Lorazepam (Ativan) 2 mg IV Q4H PRN PRN PRN Reason: AGITATION Last Admin: 12/02/19 01:58 Dose: 2 mg Documented by: Morphine Sulfate () 2 - 4 mg IV Q2H PRN PRN PRN Reason: Pain Score 4-10/10 Morphine Sulfate () 2 - 4 mg IV Q2H PRN PRN PRN Reason: Pain Score 4-10/10 Last Admin: 11/29/19 09:16 Dose: 4 mg Documented by: Ondansetron HCl (Zofran) 4 mg IV Q8H PRN PRN PRN Reason: NAUSEA/VOMITING Phenobarbital (Phenobarbital) 97.2 mg PO Q4H [facility]; Taper Stop: 12/05/19 17:59 Last Admin: 12/02/19 05:45 Dose: 97.2 mg Documented by: Sodium Chloride () 10 - 40 ml IV UD PRN PRN Reason: SALINE FLUSH Last Admin: 12/01/19 19:46 Dose: 10 ml Documented by: Thiamine HCl (Vitamin B1) 100 mg PO DAILYCM [facility] Stop: 12/02/19 08:01 Last Admin: 12/01/19 10:38 Dose: 100 mg Documented by: STROKE Vital Signs/Narrative: Vital Signs Temp Pulse Resp BP Pulse Ox 12/02/19 07:00 97 18 137/90 H 100 12/02/19 06:00 76 22 H 137/81 H 99 12/02/19 05:00 80 21 H 135/84 H 98 12/02/19 04:00 99.3 F H 93 19 H 148/97 H 100 Medical Necessity - Tobacco Use Smoking Status: Never smoker Assessment/Plan All Active Problems Acute alcohol withdrawal (Acute) Delirium tremens (Acute) Rectal bleeding (Acute) Acute colitis (Acute) Patient is a 39-year-old lady admitted with abdominal pain with rectal bleeding and assessment of acute colitis involving the cecum and ascending colon made admitted for subsequent management. Patient hospital stay complicated by acute alcohol withdrawal with delirium tremens 1. Acute colitis involving the cecum and ascending colon due to shigellosis ?Patient was treated with Cipro and Flagyl 2. Acute alcohol withdrawal with delirium tremens ?Transferred to the intensive care unit where patient was managed per protocol with phenobarbital in addition to Precedex. Patient DTs appeared to have resolved plan is to transfer patient from the ICU to regular nursing floor 3. GI bleed ?Resolved 4. Chronic alcohol abuse ?counseled on cessation 5. DVT prophylaxis -Encouraged early ambulation 6. Hypokalemia ?Corrected per protocol repeat labs ordered Active Medications Famotidine (Pepcid) 20 mg PO BID [facility] Last Admin: 12/02/19 09:21 Dose: 20 mg Documented by: Sodium Chloride () 250 mls @ 15 mls/hr IV .[id number] PRN PRN Reason: Saline Flush Last Infusion: 11/29/19 14:10 Dose: Infused Documented by: Lactated Ringer's () 1,000 mls @ 100 mls/hr IV .Q10H [facility] Last Admin: 12/02/19 05:46 Dose: 100 mls/hr Documented by: Potassium Chloride () 10 meq in 100 mls @ 100 mls/hr IV BOLUS Q1H [facility] Stop: 12/02/19 12:14 Last Admin: 12/02/19 09:21 Dose: 100 mls/hr Documented by: Lorazepam (Ativan) 2 mg IV Q4H PRN PRN PRN Reason: AGITATION Last Admin: 12/02/19 01:58 Dose: 2 mg Documented by: Morphine Sulfate () 2 - 4 mg IV Q2H PRN PRN PRN Reason: Pain Score 4-10/10 Morphine Sulfate () 2 - 4 mg IV Q2H PRN PRN PRN Reason: Pain Score 4-10/10 Last Admin: 11/29/19 09:16 Dose: 4 mg Documented by: Ondansetron HCl (Zofran) 4 mg IV Q8H PRN PRN PRN Reason: NAUSEA/VOMITING Phenobarbital (Phenobarbital) 97.2 mg PO Q4H [facility]; Taper Stop: 12/05/19 17:59 Last Admin: 12/02/19 09:25 Dose: 97.2 mg Documented by: Sodium Chloride () 10 - 40 ml IV UD PRN PRN Reason: SALINE FLUSH Last Admin: 12/01/19 19:46 Dose: 10 ml Documented by: Clinical Impression(s) from Imaging Studies Abdomen/Pelvis CT 11/28/19 09:16 IMPRESSION: Inflammatory change of the cecum and ascending colon. Differential diagnosis includes infectious colitis, diverticulitis even though no diverticula are seen, Crohn''s colitis, or less likely ischemia or colonic carcinoma. Small amount of free fluid in the pelvis but no abscess or perforation. Electronically Signed: Aaron Birmingham MD at 10:07 EDT Tel , Service support , Inpatient E&M: 67523 Subs Hosp L2
--- NOTE | 2019-12-02 08:08 | PN.SURG_ITS ---
Patient Problems: Active and Suspected Problems Rectal bleeding (Acute) Acute colitis (Acute) Subjective: Patient had over 20 episodes of diarrhea but they be have become nonbloody. He is not having abdominal pain this morning. - Physical Exam Vitals/I&O's: Vital Signs Temp Pulse Resp BP Pulse Ox 99.3 F H 97 18 137/90 H 100 12/02/19 04:00 12/02/19 07:00 12/02/19 07:00 12/02/19 07:00 12/02/19 07:00 Oxygen Flow Rate (L/min) 2 Oxygen Delivery Method Room Air Weight: 144 lb 6.444 oz Body Mass Index (BMI) 19.6 Intake and Output for Last 24 Hours 11/30/19 12/01/19 12/02/19 23:59 23:59 23:59 Intake Total 3134.33 / 3357.33 3207.17 / 3447.17 1006.67 / 1006.67 Output Total 3650 / 3975 2150 / 2150 Balance -515.67 / -617.67 1057.17 / 1297.17 1006.67 / 1006.67 General: Alert, Oriented x3 Neck: No JVD Lungs: Normal air movement Cardiovascular: Regular rate, Regular Rhythm Current Medications Famotidine (Pepcid) 20 mg PO BID [facility] Last Admin: 12/01/19 21:50 Dose: 20 mg Documented by: Sodium Chloride () 250 mls @ 15 mls/hr IV .[id number] PRN PRN Reason: Saline Flush Last Infusion: 11/29/19 14:10 Dose: Infused Documented by: Lactated Ringer's () 1,000 mls @ 100 mls/hr IV .Q10H [facility] Last Admin: 12/02/19 05:46 Dose: 100 mls/hr Documented by: Potassium Chloride () 10 meq in 100 mls @ 100 mls/hr IV BOLUS Q1H [facility] Stop: 12/02/19 12:14 Lorazepam (Ativan) 2 mg IV Q4H PRN PRN PRN Reason: AGITATION Last Admin: 12/02/19 01:58 Dose: 2 mg Documented by: Morphine Sulfate () 2 - 4 mg IV Q2H PRN PRN PRN Reason: Pain Score 4-10/10 Morphine Sulfate () 2 - 4 mg IV Q2H PRN PRN PRN Reason: Pain Score 4-10/10 Last Admin: 11/29/19 09:16 Dose: 4 mg Documented by: Ondansetron HCl (Zofran) 4 mg IV Q8H PRN PRN PRN Reason: NAUSEA/VOMITING Phenobarbital (Phenobarbital) 97.2 mg PO Q4H [facility]; Taper Stop: 12/05/19 17:59 Last Admin: 12/02/19 05:45 Dose: 97.2 mg Documented by: Sodium Chloride () 10 - 40 ml IV UD PRN PRN Reason: SALINE FLUSH Last Admin: 12/01/19 19:46 Dose: 10 ml Documented by: Medical Necessity - Tobacco Use Smoking Status: Never smoker Assessment/Plan All Active Problems Acute alcohol withdrawal (Acute) Delirium tremens (Acute) Rectal bleeding (Acute) Acute colitis (Acute) 39-year-old male with infectious colitis 1. Patient has E. coli colitis. His diarrhea has become nonbloody be still having copious amounts of diarrhea. He is not having any abdominal pain this morning but his nurse reports that he had about 20 bouts of diarrhea overnight. I would recommend continuing clear liquids until his diarrhea slows before starting a regular diet. Ady Hernandez MD Pager: [facility] [address] [place] [address], [address] [place] [address] Office:
[2019-12-02] MEDS: Famotidine 20 MG Tablet PO ×2 (09:21→21:41)
[2019-12-02] MEDS: Folic Acid 1 MG Tablet PO (09:21)
[2019-12-02] MEDS: Thiamine Hydrochloride 100 MG Tablet PO (09:21)
[2019-12-02] MEDS: Potassium Chloride 10mEq/100mL 10 MEQ/100 ML IV.SOLN. 100 MEQ IV BOLUS ×4 (09:21→13:54)
--- NOTE | 2019-12-02 10:39 | CASEMGMT ---
Patient is in contact precautions so SW attempted to call patient regarding self pay and alcohol resources. Patient did not answer his phone. SW will try again later. Geni SHEARER MSW
[2019-12-02 13:55] LABS: ALB/GLOB Ratio 0.8 RATIO (0.9-2.4); AST(SGOT) 60 U/L (15-37); Alanine Aminotransfer ALT/SGPT 32 U/L (16-61); Alkaline Phosphatase 72 U/L (45-117); Anion Gap 5 (5-15); BUN 2 mg/dL (7-18); BUN/Creat Ratio 3.2 RATIO (10-20); Calcium,Total 8.6 mg/dL (8.5-10.1); Chloride 103 mmol/L (98-107); Creatinine, Serum 0.62 mg/dL (0.70-1.30); EST Glomerular Filtration Rate 155 mL/min (>60); Est Glom Filt Rate - Afr Amer 187 mL/min (>60); Estimated Creatinine Clearance 149.66 ml/min; Globulin 3.9 g/dL (2.2-4.2); Glucose 149 mg/dL (74-106); Potassium 3.7 mmol/L (3.5-5.1); Protein, Total 6.9 g/dL (6.4-8.2); Sodium Level 136 mmol/L (136-145)
--- NOTE | 2019-12-02 13:58 | CASEMGMT ---
Social Work Note Pt is in contact precautions. SW did meet with pt on Monday in regards to self-pay and ETOH use. SW placed a call to pt's room. Pt states he is now agreeable to taking substance abuse resources. SW updated pt that this worker will provide resources to RN to give to pt. JAMES put together packet of resources for pt for substance abuse and MH. SW provided RN with packet of resources and asked to give to pt. Shantelle Lopez BRINE PROCESS OPERATOR, CARDIOPULMONARY PHYSICAL THERAPIST
[2019-12-03] MEDS: Phenobarbital 32.4 MG Tablet 64.8 MG PO ×3 (02:00→10:28)
[2019-12-03 03:18] VITALS: BP 138/87; PULSE 87; RESP 16; TEMP 36.7; O2SAT 100
[2019-12-03 05:39] LABS: Hematocrit 37.6 % (40-54); Hemoglobin 12.6 g/dL (13.0-16.5); Mean Corp Hgb Conc 33.5 g/dL (32-36); Mean Corpuscular Hgb 32.5 pg (27.0-32.0); Mean Corpuscular Volume 96.9 fL (80-94); Mean Platelet Vol. 9.5 fl (6.2-12.0); Platelet Count 213 K/mm3 (150-450); RBC Distribution Width CV 12.1 % (11.6-14.6); RBC Distribution Width SD 42.7 fl (35.1-43.9); Red Blood Count 3.88 M/mm3 (4.6-6.2); White Blood Count 4.3 K/mm3 (4.4-11.0)
[2019-12-03 05:53] LABS: Anion Gap 6 (5-15); BUN 4 mg/dL (7-18); Calcium,Total 8.1 mg/dL (8.5-10.1); Chloride 102 mmol/L (98-107); Creatinine, Serum 0.57 mg/dL (0.70-1.30); EST Glomerular Filtration Rate 169 mL/min (>60); Est Glom Filt Rate - Afr Amer 205 mL/min (>60); Estimated Creatinine Clearance 162.79 ml/min; Glucose 130 mg/dL (74-106); Magnesium 1.6 mg/dL (1.6-2.6); Potassium 3.3 mmol/L (3.5-5.1); Sodium Level 137 mmol/L (136-145)
[2019-12-03] MEDS: Lactated Ringers 1,000 ML 100 ML IV (06:05)
--- NOTE | 2019-12-03 07:42 | PCM.PN.HOSP ---
Patient Problems: Active and Suspected Problems Rectal bleeding (Acute) Acute colitis (Acute) Reason for Visit: Follow-up acute Shigella infection and alcohol withdrawal Subjective: Patient's tremors resolved. No more diarrhea plan is for patient to be discharged home Objective: GENERAL: tremulous at rest HEENT: Atraumatic; EYES; Anicteric, Normal Conjunctiva NECK; supple, normal thyroid, RESPIRATORY: Diminished to auscultation CARDIOVASCULAR: Regular S1 S2, GI: soft, normoactive bowel sounds, : No Renal angle tenderness; EXTREMITIES: No edema, no clubbing, NEURO: Awake; no lateralizing signs. SKIN: No Rash PSYCH; Flat affect Vitals/I&O's: Vital Signs Temp Pulse Resp BP Pulse Ox 98.0 F 87 16 138/87 H 100 12/03/19 03:18 12/03/19 03:18 12/03/19 03:18 12/03/19 03:18 12/03/19 03:18 Oxygen Flow Rate (L/min) 2 Oxygen Delivery Method Room Air Weight: 65.5 kg Body Mass Index (BMI) 19.6 Intake and Output for Last 24 Hours 12/01/19 12/02/19 12/03/19 23:59 23:59 23:59 Intake Total 3207.17 / 3447.17 2886.67 / 2886.67 1540 / 1540 Output Total 2150 / 2150 Balance 1057.17 / 1297.17 2886.67 / 2886.67 1540 / 1540 Laboratory Results 12/02/19 13:30: Sodium 136, Potassium 3.7, Chloride 103, Carbon Dioxide 28.0, Anion Gap 5, BUN 2 L, Creatinine 0.62 L, Estim Creat Clear Calc 149.66, Est GFR (MDRD) Af Amer 187, Est GFR (MDRD) Non-Af 155, BUN/Creatinine Ratio 3.2 L, Glucose 149 H, Calcium 8.6, Total Bilirubin 0.50, AST 60 H, ALT 32, Alkaline Phosphatase 72, Total Protein 6.9, Albumin 3.0 L, Globulin 3.9, Albumin/Globulin Ratio 0.8 L 12/03/19 05:14: WBC 4.3 L, RBC 3.88 L, Hgb 12.6 L, Hct 37.6 L, MCV 96.9 H, MCH 32.5 H, MCHC 33.5, RDW Std Deviation 42.7, RDW Coeff of Payton 12.1, Plt Count 213, MPV 9.5 12/03/19 05:14: Sodium 137, Potassium 3.3 L, Chloride 102, Carbon Dioxide 29.0, Anion Gap 6, BUN 4 L, Creatinine 0.57 L, Estim Creat Clear Calc 162.79, Est GFR (MDRD) Af Amer 205, Est GFR (MDRD) Non-Af 169, BUN/Creatinine Ratio 7.0 L, Glucose 130 H, Calcium 8.1 L, Magnesium 1.6 Current Medications Famotidine (Pepcid) 20 mg PO BID MIGUEL Last Admin: 12/02/19 21:41 Dose: 20 mg Documented by: Sodium Chloride () 250 mls @ 15 mls/hr IV .[id number] PRN PRN Reason: Saline Flush Last Infusion: 11/29/19 14:10 Dose: Infused Documented by: Lactated Ringer's () 1,000 mls @ 100 mls/hr IV .Q10H MIGUEL Last Admin: 12/03/19 06:05 Dose: 100 mls/hr Documented by: Lorazepam (Ativan) 2 mg IV Q4H PRN PRN PRN Reason: AGITATION Last Admin: 12/02/19 01:58 Dose: 2 mg Documented by: Morphine Sulfate () 2 - 4 mg IV Q2H PRN PRN PRN Reason: Pain Score 4-10/10 Morphine Sulfate () 2 - 4 mg IV Q2H PRN PRN PRN Reason: Pain Score 4-10/10 Last Admin: 11/29/19 09:16 Dose: 4 mg Documented by: Ondansetron HCl (Zofran) 4 mg IV Q8H PRN PRN PRN Reason: NAUSEA/VOMITING Phenobarbital (Phenobarbital) 64.8 mg PO Q4H MIGUEL; Taper Stop: 12/05/19 17:59 Last Admin: 12/03/19 06:03 Dose: 64.8 mg Documented by: Sodium Chloride () 10 - 40 ml IV UD PRN PRN Reason: SALINE FLUSH Last Admin: 12/01/19 19:46 Dose: 10 ml Documented by: Medical Necessity - Tobacco Use Smoking Status: Never smoker Assessment/Plan All Active Problems Acute alcohol withdrawal (Acute) Delirium tremens (Acute) Rectal bleeding (Acute) Acute colitis (Acute) Patient is a 39-year-old lady admitted with abdominal pain with rectal bleeding and assessment of acute colitis involving the cecum and ascending colon made admitted for subsequent management. Patient hospital stay complicated by acute alcohol withdrawal with delirium tremens 1. Acute colitis involving the cecum and ascending colon due to shigellosis ?Patient was treated with Cipro and Flagyl 2. Acute alcohol withdrawal with delirium tremens ?Transferred to the intensive care unit where patient was managed per protocol with phenobarbital in addition to Precedex. Patient DTs appeared to have resolved plan is to transfer patient from the ICU to regular nursing floor -Symptoms improved 3. GI bleed ?Resolved -Secondary to acute dysentery from Shigella. Patient also had associated diarrhea which has since resolved 4. Chronic alcohol abuse ?counseled on cessation 5. DVT prophylaxis -Encouraged early ambulation 6. Hypokalemia ?Corrected per protocol repeat labs ordered 7. Moderate protein calorie nutrition as evidenced by muscle wasting, low BMI of 19.6 Patient was seen in consultation by dietitian Inpatient E&M: 91152 Subs Hosp L2
--- NOTE | 2019-12-03 07:43 | PN.SURG_ITS ---
Patient Problems: Active and Suspected Problems Rectal bleeding (Acute) Acute colitis (Acute) Subjective: Patient is doing well this morning. He reports his diarrhea has ceased and he is having solid stools. He is tolerating regular diet. He is not having any abdominal pain. - Physical Exam Vitals/I&O's: Vital Signs Temp Pulse Resp BP Pulse Ox 98.0 F 87 16 138/87 H 100 12/03/19 03:18 12/03/19 03:18 12/03/19 03:18 12/03/19 03:18 12/03/19 03:18 Oxygen Flow Rate (L/min) 2 Oxygen Delivery Method Room Air Weight: 144 lb 6.444 oz Body Mass Index (BMI) 19.6 Intake and Output for Last 24 Hours 12/01/19 12/02/19 12/03/19 23:59 23:59 23:59 Intake Total 3207.17 / 3447.17 2886.67 / 2886.67 1540 / 1540 Output Total 2150 / 2150 Balance 1057.17 / 1297.17 2886.67 / 2886.67 1540 / 1540 General: Alert, Oriented x3 Lungs: Normal air movement Abdomen: Soft, Non Tender, Non-Distended Laboratory Results 12/02/19 13:30: Sodium 136, Potassium 3.7, Chloride 103, Carbon Dioxide 28.0, Anion Gap 5, BUN 2 L, Creatinine 0.62 L, Estim Creat Clear Calc 149.66, Est GFR (MDRD) Af Amer 187, Est GFR (MDRD) Non-Af 155, BUN/Creatinine Ratio 3.2 L, Glucose 149 H, Calcium 8.6, Total Bilirubin 0.50, AST 60 H, ALT 32, Alkaline Phosphatase 72, Total Protein 6.9, Albumin 3.0 L, Globulin 3.9, Albumin/Globulin Ratio 0.8 L 12/03/19 05:14: WBC 4.3 L, RBC 3.88 L, Hgb 12.6 L, Hct 37.6 L, MCV 96.9 H, MCH 32.5 H, MCHC 33.5, RDW Std Deviation 42.7, RDW Coeff of Payton 12.1, Plt Count 213, MPV 9.5 12/03/19 05:14: Sodium 137, Potassium 3.3 L, Chloride 102, Carbon Dioxide 29.0, Anion Gap 6, BUN 4 L, Creatinine 0.57 L, Estim Creat Clear Calc 162.79, Est GFR (MDRD) Af Amer 205, Est GFR (MDRD) Non-Af 169, BUN/Creatinine Ratio 7.0 L, Glucose 130 H, Calcium 8.1 L, Magnesium 1.6 Current Medications Famotidine (Pepcid) 20 mg PO BID MIGUEL Last Admin: 12/02/19 21:41 Dose: 20 mg Documented by: Sodium Chloride () 250 mls @ 15 mls/hr IV .[id number] PRN PRN Reason: Saline Flush Last Infusion: 11/29/19 14:10 Dose: Infused Documented by: Lactated Ringer's () 1,000 mls @ 100 mls/hr IV .Q10H MIGUEL Last Admin: 12/03/19 06:05 Dose: 100 mls/hr Documented by: Lorazepam (Ativan) 2 mg IV Q4H PRN PRN PRN Reason: AGITATION Last Admin: 12/02/19 01:58 Dose: 2 mg Documented by: Morphine Sulfate () 2 - 4 mg IV Q2H PRN PRN PRN Reason: Pain Score 4-10/10 Morphine Sulfate () 2 - 4 mg IV Q2H PRN PRN PRN Reason: Pain Score 4-10/10 Last Admin: 11/29/19 09:16 Dose: 4 mg Documented by: Ondansetron HCl (Zofran) 4 mg IV Q8H PRN PRN PRN Reason: NAUSEA/VOMITING Phenobarbital (Phenobarbital) 64.8 mg PO Q4H MIGUEL; Taper Stop: 12/05/19 17:59 Last Admin: 12/03/19 06:03 Dose: 64.8 mg Documented by: Sodium Chloride () 10 - 40 ml IV UD PRN PRN Reason: SALINE FLUSH Last Admin: 12/01/19 19:46 Dose: 10 ml Documented by: Medical Necessity - Tobacco Use Smoking Status: Never smoker Assessment/Plan All Active Problems Acute alcohol withdrawal (Acute) Delirium tremens (Acute) Rectal bleeding (Acute) Acute colitis (Acute) 39-year-old male with E. coli colitis 1. Patient seems to be improving. He says his stools have solidified. He is not having any abdominal pain tolerating regular diet. DC home per primary service. Follow-up as needed. Ady Hernandez MD Pager: [facility] [address] [place] [address], [address] [place] [address] Office:
[2019-12-03] MEDS: Famotidine 20 MG Tablet PO (08:02)
--- NOTE | 2019-12-03 08:37 | PCM.WORK.EX ---
Work/School Excuse Work/School Excuse for:: Patient Please excuse this person from:: Work From: 11/28/19 through: 12/06/19
[2019-12-03 09:18] VITALS: BP 131/99; PULSE 80; RESP 18; TEMP 36.6; O2SAT 100
--- NOTE | 2019-12-03 09:31 | DCINST_ITS ---
- Discharge Diagnoses Current Active Problems: Current Active and Chronic Problems Rectal bleeding (Acute) Acute colitis (Acute) You will use the following diet at home:: No restrictions Discharge Activity: May not drive while taking narcotic pain medications. Allergies/Adverse Reactions: Allergies No Known Allergies Allergy (Verified 11/28/19 08:38) Medications to take at Discharge NK 11/28/19 Primary Care Physician: Care Physician,No Primary [Primary Care Provider] - Test Results: Test results from this visit will be discussed in further detail at your follow- up appointment, if applicable. Proposed Discharge Date: 12/03/19
--- NOTE | 2019-12-03 09:43 | PCM.DC.SUM ---
Discharge Date and Diagnosis - Problem List Patient Problems: Active and Suspected Problems Rectal bleeding (Acute) Acute colitis (Acute) Date of Admission: 11/28/19 Date of Discharge: 12/03/19 - Primary Discharge Diagnosis Acute Problems: Active Problems Rectal bleeding (Acute) Acute colitis (Acute) Hospital Course and Treatment Imaging Results: Clinical Impression(s) from Imaging Studies Abdomen/Pelvis CT 11/28/19 09:16 IMPRESSION: Inflammatory change of the cecum and ascending colon. Differential diagnosis includes infectious colitis, diverticulitis even though no diverticula are seen, Crohn''s colitis, or less likely ischemia or colonic carcinoma. Small amount of free fluid in the pelvis but no abscess or perforation. Electronically Signed: Aaron Birmingham MD at 10:07 EDT Tel , Service support , Operations: None Summary of Care Provided: Patient is a 39-year-old lady admitted with abdominal pain with rectal bleeding and assessment of acute colitis involving the cecum and ascending colon made admitted for subsequent management. Patient hospital stay complicated by acute alcohol withdrawal with delirium tremens 1. Acute dysentery secondary to shigellosis CT of the abdomen demonstrated acute colitis involving the cecum and ascending colon. Patient was treated with Cipro and Flagyl provement in symptoms. In addition to hematochezia patient had significant diarrhea which had resolved at the time of discharge 2. Acute alcohol withdrawal with delirium tremens ?Transferred to the intensive care unit where patient was managed per protocol with phenobarbital in addition to Precedex. Patient DTs appeared to have resolved plan is to transfer patient from the ICU to regular nursing floor -Symptoms improved patient was counseled on cessation offered resources to help him quit drinking 3. Chronic alcohol abuse ?counseled on cessation 4. Hypokalemia ?Corrected per protocol repeat labs ordered 5. Moderate protein calorie nutrition as evidenced by muscle wasting, low BMI of 19.6 Patient was seen in consultation by dietitian 6. DVT prophylaxis -Encouraged early ambulation Patient Problems: Active and Suspected Problems Rectal bleeding (Acute) Acute colitis (Acute) - Physical Exam Vitals/I&O's: Vital Signs Temp Pulse Resp BP Pulse Ox 97.9 F 80 18 131/99 H 100 12/03/19 09:18 12/03/19 09:18 12/03/19 09:18 12/03/19 09:18 12/03/19 09:18 Oxygen Flow Rate (L/min) 2 Oxygen Delivery Method Room Air Weight: 65.5 kg Body Mass Index (BMI) 19.6 Intake and Output for Last 24 Hours 12/01/19 12/02/19 12/03/19 23:59 23:59 23:59 Intake Total 3207.17 / 3447.17 2886.67 / 2886.67 1540 / 1540 Output Total 2150 / 2150 Balance 1057.17 / 1297.17 2886.67 / 2886.67 1540 / 1540 General: Oriented x3 Neck: Supple Musculoskeletal: Muscle Wasting Neurological: Neuro grossly intact Psych/Mental Status: Normal Affect Laboratory Results 12/02/19 13:30: Sodium 136, Potassium 3.7, Chloride 103, Carbon Dioxide 28.0, Anion Gap 5, BUN 2 L, Creatinine 0.62 L, Estim Creat Clear Calc 149.66, Est GFR (MDRD) Af Amer 187, Est GFR (MDRD) Non-Af 155, BUN/Creatinine Ratio 3.2 L, Glucose 149 H, Calcium 8.6, Total Bilirubin 0.50, AST 60 H, ALT 32, Alkaline Phosphatase 72, Total Protein 6.9, Albumin 3.0 L, Globulin 3.9, Albumin/Globulin Ratio 0.8 L 12/03/19 05:14: WBC 4.3 L, RBC 3.88 L, Hgb 12.6 L, Hct 37.6 L, MCV 96.9 H, MCH 32.5 H, MCHC 33.5, RDW Std Deviation 42.7, RDW Coeff of Payton 12.1, Plt Count 213, MPV 9.5 12/03/19 05:14: Sodium 137, Potassium 3.3 L, Chloride 102, Carbon Dioxide 29.0, Anion Gap 6, BUN 4 L, Creatinine 0.57 L, Estim Creat Clear Calc 162.79, Est GFR (MDRD) Af Amer 205, Est GFR (MDRD) Non-Af 169, BUN/Creatinine Ratio 7.0 L, Glucose 130 H, Calcium 8.1 L, Magnesium 1.6 Current Medications Famotidine (Pepcid) 20 mg PO BID MIGUEL Last Admin: 12/03/19 08:02 Dose: 20 mg Documented by: Sodium Chloride () 250 mls @ 15 mls/hr IV .[id number] PRN PRN Reason: Saline Flush Last Infusion: 11/29/19 14:10 Dose: Infused Documented by: Lactated Ringer's () 1,000 mls @ 100 mls/hr IV .Q10H MIGUEL Last Admin: 12/03/19 06:05 Dose: 100 mls/hr Documented by: Lorazepam (Ativan) 2 mg IV Q4H PRN PRN PRN Reason: AGITATION Last Admin: 12/02/19 01:58 Dose: 2 mg Documented by: Morphine Sulfate () 2 - 4 mg IV Q2H PRN PRN PRN Reason: Pain Score 4-10/10 Morphine Sulfate () 2 - 4 mg IV Q2H PRN PRN PRN Reason: Pain Score 4-10/10 Last Admin: 11/29/19 09:16 Dose: 4 mg Documented by: Ondansetron HCl (Zofran) 4 mg IV Q8H PRN PRN PRN Reason: NAUSEA/VOMITING Phenobarbital (Phenobarbital) 64.8 mg PO Q4H MIGUEL; Taper Stop: 12/05/19 17:59 Last Admin: 12/03/19 06:03 Dose: 64.8 mg Documented by: Sodium Chloride () 10 - 40 ml IV UD PRN PRN Reason: SALINE FLUSH Last Admin: 12/01/19 19:46 Dose: 10 ml Documented by: Discharge Diet: No Restrictions Discharge Activity: May not drive while taking narcotic pain medications. Home Medications: Medications to take at Discharge NK 11/28/19 Primary Care Physician: Care Physician,No Primary [Primary Care Provider] - Disposition: Home Minutes spent on discharge:: 35 Patient Condition:: Stable Medical Necessity - Tobacco Use Smoking Status: Never smoker Meaningful Use Info Meaningful Use Diagnoses (Choose all that apply): None applicable Inpatient E&M: 30112 Disch Hosp
--- NOTE | 2019-12-03 09:47 | NURSING ---
Addendum entered by Farida Álvarez 12/03/19 10:25: pt had wallet with ID, cards, and ceballos locked in safe. this was collected and given back to patient with all belongings intact, cell phone still not found. explained to pt that risk management would be notified of missing belonging. Original Note: pt reports missing his wallet with ID, credit cards and ceballos included, and his cell phone. ICU reports that they do not have belongings, called security to ask to check for belongings.
--- NOTE | 2019-12-03 10:02 | CASEMGMT ---
Social Work Note Pt is being discharged today. Pt is still in precautions. SW placed a call to pt's room. Pt confirms that he received resources from this worker yesterday regarding substance abuse and MH. SW asked pt if he would like this worker to set up any appointments for pt at discharge and pt denied. SW reminded pt that last week he was provided financial resources and [facility] will likely be mailing him additional information. Pt states understanding, states he would like to get into his safe. JAMES updated charge nurse. Shantelle Lopez SYSTEMS NAVIGATOR, PACK MASTER
--- NOTE | 2019-12-18 10:44 | CASEMGMT ---
Social Work Discharge follow up Phone call: Discharge Date: 12/03/19 Call Date: 12/18/19 Callt Time: 1045 Reason for Follow up: resources provided during hospitalization for substance abuse and financial limitations Summary of Call: Phone call placed to pt however, no answer and VM has not been set up Interventions: SW will attempt to contact at a later date as time allows. MEAGAN Villafuerte
== END 2019-12-03 10:39 | disposition home or self-care (01) | DRG 372 ==
LOC: ED 10:01 → MS3 12:46 → ICU 11-29 16:42 → MS3 12-02 11:33
PROVIDERS: Internal Medicine Critical Care Medicine; Physician Assistant; Surgery; Admitting Provider Hospitalist; Emergency Provider Emergency Medicine; Visit Provider Internal Medicine
DX: A03.9 Shigellosis, unspecified (principal); F10.231 Alcohol dependence with withdrawal delirium; E44.0 Moderate protein-calorie malnutrition; Z68.1 Body mass index [BMI] 19.9 or less, adult; R23.0 Cyanosis; E87.6 Hypokalemia
CPT/HCPCS: 36415; 74176; 80048; 80053; 80307; 81001; 83605; 83690; 83735; 84100; 85025; 85027; 87493; 87506; 93005; 97802; 99251; 99285; J7030; J7040; J7050; J7120; A4216; G0463; J0744; J2405; J3486; J3490

== ENCOUNTER → 2019-12-11 | Outpatient (CLI) | payer SELFPAY ==
[2019-11-28 14:37] VITALS: BMI 19.6
== END | disposition home or self-care (01) ==
LOC: LABSPEC 09:50
PROVIDERS: Visit Provider Surgery
DX: A04.4 Other intestinal Escherichia coli infections (principal)
CPT/HCPCS: 87506

== ENCOUNTER → 2019-12-12 | Outpatient (CLI) | payer SELFPAY ==
[2019-11-28 14:37] VITALS: BMI 19.6
== END | disposition home or self-care (01) ==
LOC: LABSPEC 11:08
PROVIDERS: Visit Provider Surgery
DX: A49.8 Other bacterial infections of unspecified site (principal)
CPT/HCPCS: 87506

== ENCOUNTER → 2023-09-28 | Outpatient (CLI) | payer SELFPAY ==
[2023-09-28 18:39] LABS: Thyroid Stim Hormone (TSH) 1.84 uIU/mL (0.358-3.74)
[2023-09-28 19:13] LABS: Vitamin B12 214 pg/mL (211-911)
== END | disposition home or self-care (01) ==
LOC: MTLAB 16:18
PROVIDERS: PCP Family Medicine; Referring Provider Family Medicine; Visit Provider Family Medicine
DX: R41.3 Other amnesia (principal)
CPT/HCPCS: 36415; 82607; 84443

== ENCOUNTER 2023-11-05 17:49 | Emergency (ER) | payer SELFPAY ==
[2023-11-05 17:53] VITALS: BP 138/97; PULSE 87; RESP 18; TEMP 36.8; O2SAT 96; BMI 19.7
--- NOTE | 2023-11-05 18:11 | EKG12_ITS ---
Test Reason : CP Blood Pressure : / mmHG Vent. Rate : 078 BPM Atrial Rate : 078 BPM P-R Int : 128 ms QRS Dur : 088 ms QT Int : 376 ms P-R-T Axes : 077 068 070 degrees QTc Int : 428 ms Normal sinus rhythm Normal ECG Confirmed by Preet Weiner ([id number]), film or videotape editor TAMMY MULLINS ([id number]) on 11/06/2023 9:26:05 AM Referred By: Confirmed By:Preet Weiner
--- NOTE | 2023-11-05 18:12 | ED.VIS.CHEST ---
HPI History of Present Illness Chief Complaint: Chest Pain Narrative Narrative: 43-year-old male past medical history of previous chest pains with unknown etiology presents with chest pain that happened again today. His mother is present and states that there is family history of heart problems on their side of the family. Patient states that he had about 20 minutes of chest pain and it felt like there was a [place] on his chest, but it also felt like a shooting pain. Today was different because he also had left arm pain as well. He does not smoke, but does drink alcohol. He denies any exacerbating or alleviating factors in his chest pain happens. No leg swelling, no other symptoms. PFSH PFSH Home Medications ?Medication ?Instructions ?Recorded ?Last Taken ?Type NK 11/28/19 Unknown History Allergy/AdvReac Type Severity Reaction Status Date / Time No Known Allergies Allergy Verified 11/05/23 17:51 Social History Smoking Status: Never smoker ROS ROS ED ROS Narrative Constitutional: No fever, no chills. No diaphoresis. HEENT: No sore throat. No neck pain. No loss of vision. No rhinorrhea. Cardiovascular: Positive midsternal heavy, but also shooting chest pain. No palpitations. No pedal edema. Respiratory: No cough, no shortness of breath. Abdominal: No abdominal pain. No nausea. No vomiting. Genitourinary: No dysuria. No hematuria. Musculoskeletal: No myalgias. No arthralgias. Neurologic: No headaches. No dizziness. No lightheadedness. Skin: No rash. No change in color. Psychiatric: No depression. No anxiety. EXAM Physical Exam Narrative Exam Narrative: Afebrile. Vital signs noted. HEENT: Normocephalic. Atraumatic. PERRL, EOMI. Neck soft and supple. No point tenderness or step off. Cardiovascular: Regular rate and rhythm. No murmurs, rubs, or gallops appreciated. Respiratory: No tachypnea. Lungs clear to auscultation bilaterally. Gastrointestinal: Abdomen soft, nontender, with normoactive bowel sounds. No rebound or guarding. Neurological: Awake. Alert. Nonfocal, nonlateralizing. Skin: No rash. Normal color. No pallor. Musculoskeletal: No pedal edema. Full range of motion extremities. Const Vital Signs: 11/05/23 17:53 11/05/23 18:15 11/05/23 18:17 Temperature 98.2 F Temperature Source Temporal Pulse Rate 87 Respiratory Rate 18 Respiratory Effort Normal Non-Labored Blood Pressure 138/97 H Blood Pressure Mean 110 Pulse Ox 96 Oxygen Delivery Method Room Air Room Air 11/05/23 18:50 11/05/23 19:38 11/05/23 20:00 Temperature Temperature Source Pulse Rate 70 81 62 Respiratory Rate 18 19 H 18 Respiratory Effort Blood Pressure 133/90 H 141/92 H 122/81 H Blood Pressure Mean 104 108 94 Pulse Ox 96 98 97 Oxygen Delivery Method Room Air Room Air Room Air Heart Score History: Slightly/Non-Suspicious ECG: Normal Age: </= 45 years Risk Factors: No Risk Factors Score: 0 MDM MDM MDM Narrative Medical decision making narrative: In the differential diagnosis is ACS versus pneumothorax versus pneumonia. I have low suspicion for pneumothorax or pneumonia because the history and physical does not support this. I have low suspicion for pulmonary embolism on the differential as well because he is PERC negative. Pulse ox is 96% on room air without evidence of hypoxia. Chest pain workup was pursued. I do feel that he will require serial enzymes, but given his history of chest pain with unknown etiology, I do feel that this may be another case of it as well. EKG was obtained and interpreted by myself independently as normal sinus rhythm at 78 bpm without ectopy or acute ST changes. No STEMI. I reviewed his laboratory work and he has a neutropenia of 3.8 but has had that previously. Hemoglobin normal at 15.1, hematocrit 44.9, platelet count normal at 181. Electrolyte panel is grossly unremarkable with a sodium of 138 and a potassium of 3.6. BUN is low at 6. Creatinine normal. Glucose is elevated at 110 and he has normal anion gap of 6. Initial high-sensitivity troponin is 4. Chest x-ray 1 view interpreted by myself independently shows no evidence of pneumothorax, no pneumonia. Will feel antibiotics are indicated. I reviewed the radiology report which confirms my independent interpretation. Delta troponin will be checked, and if this is normal I feel he can be discharged to follow-up with his primary care provider. His repeat troponin has only elevated by 1, hence a negative delta. At this point in time, he will be discharged to follow-up. States he has an appointment with his primary care provider on Monday. I feel this is definitely acceptable. Return instructions to the emergency department were reviewed. Disposition is discharged home in stable condition. History & Record Review Discussion w/independent historian: Patient and Family Lab Data Attestation: I reviewed the patient's lab results. Labs: Laboratory Results - last 24 hr 11/05/23 11/05/23 18:05 20:03 WBC 3.8 L RBC 4.40 L Hgb 15.1 Hct 44.9 MCV 102.0 H MCH 34.3 H MCHC 33.6 RDW Std Deviation 44.3 H RDW Coeff of Payton 11.7 Plt Count 181 MPV 9.6 Immature Gran % (Auto) 0.300 Neut % (Auto) 41.3 L Lymph % (Auto) 45.5 H Lynn % (Auto) 11.3 H Eos % (Auto) 0.3 Baso % (Auto) 1.3 H Absolute Neuts (auto) 1.6 L Absolute Lymphs (auto) 1.73 Nucleated RBC % 0 Sodium 138 Potassium 3.6 Chloride 102 Carbon Dioxide 30.0 Anion Gap 6 BUN 6 L Creatinine 0.78 Estim Creat Clear Calc 114.93 Est GFR (MDRD) Af Amer 140 Est GFR (MDRD) Non-Af 116 BUN/Creatinine Ratio 7.7 L Glucose 110 H Calcium 8.6 Troponin I High Sens 4 5 Radiography Diagnostic Testing: Clinical Impression(s) from Imaging Studies Chest X-Ray 11/05/23 18:20 IMPRESSION: No radiographic evidence of acute cardiopulmonary disease. Electronically Signed: Oniel Lambert MD at 18:39 EDT Reading Location ID and State: [facility] / [place] , Service support , Discharge Plan Triage Chief Complaint: Chest Pain ED Provider: Lul Valencia Dx/Rx/DC Orders Clinical Impression: Chest pain Instructions: ED Chest Pain, Uncertain Cause Prescriptions: No Action NK Primary Care Provider: Ketan Lawrence Referrals: Ketan Lawrence MD [Primary Care Provider] - 3-5 Days if not improving Activity Restrictions/Additional Instructions: Follow-up with your primary care provider on Monday as scheduled. Return with increased pain, new or worsening symptoms. Print Language: Greek Disposition Disposition: Home, Self Care
--- NOTE | 2023-11-05 18:20 | RAD_ITS ---
EXAM: XR CHEST, 1 VIEW CLINICAL INDICATION: chest pain TECHNIQUE: Frontal view of the chest. COMPARISON: 09.19.17 FINDINGS: LUNGS AND PLEURAL SPACES: Unremarkable. No consolidation or edema. No pneumothorax. No effusion. HEART: Unremarkable. Cardiac silhouette not enlarged. MEDIASTINUM: Central airways and mediastinal contour are unremarkable. BONES/JOINTS: Unremarkable. No acute fracture. SOFT TISSUES: Unremarkable. RAD/Chest 1 View (Portable) IMPRESSION: No radiographic evidence of acute cardiopulmonary disease. Electronically Signed: Oniel Lambert MD at 18:39 EDT ,
[2023-11-05 18:31] LABS: Absolute Lymphocyte Count 1.73 X10^3/uL (0.83-4.51); Absolute Neutrophil Count 1.6 X10^3/uL (2.0-7.7); Basophil# 0.05 X10^3/uL; Basophil% 1.3 % (0-1); Eosinophil# 0.01 X10^3/uL; Eosinophils% 0.3 % (0-5); Hematocrit 44.9 % (40-54); Hemoglobin 15.1 g/dL (13.0-16.5); Lymphocyte # 1.73 X10^3/ul (0.83-4.51); Lymphocyte % 45.5 % (19-41); Mean Corp Hgb Conc 33.6 g/dL (32-36); Mean Corpuscular Hgb 34.3 pg (27.0-32.0); Mean Platelet Vol. 9.6 fl (6.2-12.0); Monocyte# 0.43 X10^3/uL; Monocyte% 11.3 % (0-10); NRBC Flagged by Analyzer 0 % (0-5); Neutrophil # 1.57 X10^3/uL (2.7-7.7); Neutrophil % 41.3 % (47-70); Platelet Count 181 K/mm3 (150-450); RBC Distribution Width CV 11.7 % (11.6-14.6); RBC Distribution Width SD 44.3 fl (35.1-43.9); White Blood Count 3.8 K/mm3 (4.4-11.0)
[2023-11-05 18:50] VITALS: BP 133/90; PULSE 70; RESP 18; O2SAT 96
[2023-11-05 18:55] LABS: Anion Gap 6 (5-15); BUN 6 mg/dL (7-18); BUN/Creat Ratio 7.7 RATIO (10-20); Calcium,Total 8.6 mg/dL (8.5-10.1); Chloride 102 mmol/L (98-107); Creatinine, Serum 0.78 mg/dL (0.70-1.30); EST Glomerular Filtration Rate 116 mL/min (>60); Est Glom Filt Rate - Afr Amer 140 mL/min (>60); Estimated Creatinine Clearance 114.93 ml/min; Glucose 110 mg/dL (74-106); Potassium 3.6 mmol/L (3.5-5.1); Sodium Level 138 mmol/L (136-145); Troponin-I HS (w/2H Reflex) 4 pg/mL (3.0-78.0)
[2023-11-05 19:38] VITALS: BP 141/92; PULSE 81; RESP 19; O2SAT 98
[2023-11-05 20:00] VITALS: BP 122/81; PULSE 62; RESP 18; O2SAT 97
[2023-11-05 20:06] LABS: Reflex Troponin-HS? (from REC) Y
[2023-11-05 20:25] LABS: Troponin-I HS 5 pg/mL (3.0-78.0)
[2023-11-05 20:51] VITALS: BP 119/87; PULSE 73; RESP 17; TEMP 36.7; O2SAT 93
== END 2023-11-05 20:52 | disposition home or self-care (01) ==
PROVIDERS: Emergency Provider Emergency Medicine; PCP Family Medicine; Visit Provider Emergency Medicine
DX: R07.9 Chest pain, unspecified (principal)
CPT/HCPCS: 71045; 80048; 84484; 85025; 93005; 99285; A4216

== ENCOUNTER → 2023-11-10 | Outpatient (CLI) | payer SELFPAY ==
[2023-11-10 15:50] LABS: Magnesium 2.2 mg/dL (1.6-2.6)
[2023-11-13 16:09] LABS: Endomysial Antibody IgA Negative (Negative); Immunoglobulin A 766 mg/dL (90-386); t-Transglutaminase IgA <2 U/mL (0-3)
== END | disposition home or self-care (01) ==
LOC: MTLAB 13:28
PROVIDERS: PCP Family Medicine; Referring Provider Family Medicine; Visit Provider Family Medicine
DX: R19.7 Diarrhea, unspecified (principal)
CPT/HCPCS: 36415; 82784; 83516; 83735; 86255

== ENCOUNTER → 2023-11-15 | Outpatient (CLI) | payer SELFPAY ==
--- NOTE | 2023-11-15 06:38 | MRI_ITS ---
STUDY: MRI BRAIN WITH AND WITHOUT CONTRAST REASON FOR EXAM: Male, 43 years old. DYSMETRIA TECHNIQUE: Standardized multiplanar fat and water weighted pulse sequences were obtained. 13ML IV CLARISCAN was administered for the contrast portion of the examination. COMPARISON: None. FINDINGS: Normal size of the ventricles and extra-axial spaces for the patient''s age. Normal white matter tracts of the supratentorial brain. There is no evidence for recent intracranial ischemia or other cause of cytotoxic edema on diffusion weighted imaging (DWI). Normal bilateral basal ganglia. Normal thalami. There is no extra-axial fluid accumulation. Normal flow voids within the major intracranial circulation suggesting patency by spin echo criteria. Normal venous enhancement. There is no enhancing intra-axial or extra-axial abnormality. Normal sella turcica, pituitary gland, infundibular stalk, optic chiasm and hypothalamus. Normal tectal plate and pineal gland. Normal midbrain, franki and medulla. Normal cerebellum. Normal basal cisterns. Normal bilateral temporal bones. Normal bilateral internal auditory canals. No demonstrated orbital abnormality, within the constraints of a routine brain study. Polyp right maxillary sinus. Normal calvarium and skull base. Normal visualized soft tissue structures. Normal visualized upper cervical spine. MRI/Brain W/WO Contrast IMPRESSION: No acute disease Electronically Signed: Juan Pablo Jeronimo MD at 20:13 EDT ,
== END | disposition home or self-care (01) ==
PROVIDERS: PCP Family Medicine; Referring Provider Family Medicine; Visit Provider Family Medicine
DX: R27.8 Other lack of coordination (principal)
CPT/HCPCS: 70553; A9575